=== PATIENT | female | born 1950 | race Caucasian/White ===

== ENCOUNTER 2022-09-20 13:20 | Outpatient (RCR) | payer MEDICARE, SELFPAY ==
[2022-09-20 13:21] VITALS: BMI 24.5
[2022-09-20 14:31] VITALS: BMI 24.5
== END 2022-12-08 08:33 | disposition home or self-care (01) ==
LOC: ANHDMC 13:20
PROVIDERS: PCP Family Medicine; Visit Provider Family Medicine
DX: E11.9 Type 2 diabetes mellitus without complications (principal); Z71.3 Dietary counseling and surveillance
CPT/HCPCS: 97802

== ENCOUNTER 2023-06-07 16:24 | Emergency (ER) | payer MEDICARE, SELFPAY ==
[2023-06-07 16:28] VITALS: BP 144/76; PULSE 83; RESP 16; TEMP 36.1; O2SAT 98
--- NOTE | 2023-06-07 16:34 | ED.FEMALEGU ---
HPI - Female Genitourinary General Chief complaint: Urogenital-Female Stated complaint: Female Urogenital Source: patient and RN notes reviewed History of Present Illness HPI Narrative: 72 yo F presents to urgent care with complaints of dysuria and hematuria x 2-3 days. Pt reports feeling nauseated the other day. Denies any abdominal pain, vomiting, flank pain, abnormal back pain, fevers, chills, chest pain, or SOB. Related Data Home Medications Medication Instructions Recorded Confirmed melatonin 5 mg capsule 5 mg PO .hs 09/21/21 06/07/23 [id number]-[id number] 8 mg-folic 400 1 tablet PO DAILY 09/21/21 06/07/23 mcg-K 50 mcg-lutein 300 mcg tablet (Centrum Silver Women) Allergies Allergy/AdvReac Type Severity Reaction Status Date / Time QUINTON Inhibitors Allergy Severe Angioedema Verified 05/02/23 13:36 Review of Systems Review of Systems: CONSTITUTIONAL: Denies fever, chills, or sweats. EYES: Denies visual changes, redness, or discharge. ENT: Denies otalgia and sore throat CARDIOVASCULAR: Denies chest pain, palpitations, or edema. RESPIRATORY: Denies cough or dyspnea. GASTROINTESTINAL: Denies abdominal pain, vomiting, or diarrhea. SKIN: Denies rash or itching. MUSCULOSKELETAL: Denies back pain, joint pain, or myalgia. NEUROLOGIC: Denies headache, numbness, or weakness. Pertinent positives per HPI. [facility] Past Medical History Medical History BMI 24.0-24.9, adult Breast cancer Cataract Thyroid disease Surgical History Surgical History H/O breast surgery Family History Family History Father Family history of cardiovascular disease, Onset Age: 87 Mother Family history of cardiovascular disease, Onset Age: 93 Sibling No problems noted. Social History Social History Smoking packs per day: 1 Smoking cigarettes per day: 20.0 Smoking status: Current every day smoker Tobacco type: cigarettes Second hand tobacco smoke exposure: No Alcohol intake: never Substance use: never Substance use type: does not use Lack of Transportation: YES Lack of Food: Never True Current Housing: I Have Housing Concerned About Future Housing: No Difficulty Paying Gas/Electric Bills: No Difficulty Paying for Meds: No Currently Unemployed: No Education: High School Diploma/GED Difficulty w/ Childcare or Family Care: No Living arrangements: with family Occupation/Education: retired Additional occupation/education comments: [employer] Gender identity (if verbalized by the patient): Female Sexual Orientation (if Verbalized by the Patient): Straight or Heterosexual Spiritual care concerns: No Agree to blood products: Yes Comments At the time of my signature, I reviewed and agree with the nursing past medical, surgical, social, and family history. There is no relevant family history pertinent to the patient complaint. Exam Narrative: GENERAL: This is a well-nourished, well-developed patient, in no apparent distress. HEAD: normocephalic, atraumatic. EYES: Sclera clear/white. Vision is grossly intact. EARS: External ears normal, auditory canals clear and without drainage. Hearing grossly intact. NOSE: External nose normal with no obvious nasal discharge, nares without redness, no rhinorrhea. NECK: Neck supple, non-tender without lymphadenopathy, masses or thyromegaly. CARDIOVASCULAR: Regular rate and rhythm without murmurs, gallops, or rubs. RESPIRATORY: Clear to auscultation. Breath sounds equal bilaterally. No wheezes, rales, or rhonchi. GASTROINTESTINAL: Abdomen soft, non-tender, nondistended. Bowel sounds are active. No hepato-splenomegaly, or palpable masses. No guarding. SKIN: warm, intact with no suspicious lesions or rash, go
== END 2023-06-07 17:45 | disposition home or self-care (01) ==
PROVIDERS: Emergency Provider Nurse Practitioner Family; PCP Family Medicine
DX: N39.0 Urinary tract infection, site not specified (principal); F17.210 Nicotine dependence, cigarettes, uncomplicated
CPT/HCPCS: 81003; 87077; 87086; 87186; 99213; G0463

== ENCOUNTER 2023-06-19 17:28 | Emergency (ER) | payer MEDICARE, SELFPAY ==
[2023-06-19 17:32] VITALS: BP 146/68; PULSE 98; RESP 16; TEMP 36.6; O2SAT 97
--- NOTE | 2023-06-19 18:04 | ED.FEMALEGU ---
HPI - Female Genitourinary General Chief complaint: Urogenital-Female Stated complaint: Female Urogenital Time Seen by Provider: 06/19/23 17:52 Source: patient, RN notes reviewed and old records reviewed (previous urine culture) Mode of arrival: ambulatory Limitations: no limitations History of Present Illness HPI Narrative: Patient presents today complaining of urgency, dysuria, and mild urinary retention. Denies hematuria, back pain, abdominal pain. Patient was seen at [facility] on 06/07/23, diagnosed with the UTI, and placed on 5 days of Macrobid. States she finished this, but her symptoms only resolved for a few days before returning. Related Data Home Medications Medication Instructions Recorded Confirmed melatonin 5 mg capsule 5 mg PO .hs 09/21/21 06/19/23 [id number]-[id number] 8 mg-folic 400 1 tablet PO DAILY 09/21/21 06/19/23 mcg-K 50 mcg-lutein 300 mcg tablet (Centrum Silver Women) epinephrine 0.3 mg/0.3 mL 0.3 mg IM PRN PRN Allergic Reaction 06/19/23 06/19/23 injection, auto-injector Allergies Allergy/AdvReac Type Severity Reaction Status Date / Time QUINTON Inhibitors Allergy Severe Angioedema Verified 06/19/23 17:37 Review of Systems Review of Systems: CONSTITUTIONAL: Denies body aches, fever, chills, or sweats. EYES: Denies visual changes, redness, or discharge. ENT: Denies rhinorrhea, congestion, sore throat, or otalgia. CARDIOVASCULAR: Denies chest pain, palpitations, or edema. RESPIRATORY: Denies cough or dyspnea. GASTROINTESTINAL: Denies abdominal pain, nausea, vomiting, or diarrhea. GENITOURINARY: + urgency, dysuria, urinary retention. Denies hematuria SKIN: Denies rash, itching, or wounds. MUSCULOSKELETAL: Denies back pain, joint pain, or myalgia. NEUROLOGIC: Denies headache, numbness, tingling, or weakness. PSYCH: Denies depression or anxiety. PENDING SALE TO [facility] Past Medical History Medical History BMI 24.0-24.9, adult Breast cancer Cataract Thyroid disease Surgical History Surgical History H/O breast surgery Family History Family History Father Family history of cardiovascular disease, Onset Age: 87 Mother Family history of cardiovascular disease, Onset Age: 93 Sibling No problems noted. Social History Social History Smoking packs per day: 1 Smoking cigarettes per day: 20.0 Smoking status: Current every day smoker Tobacco type: cigarettes Second hand tobacco smoke exposure: No Alcohol intake: never Substance use: never Substance use type: does not use Lack of Transportation: YES Lack of Food: Never True Current Housing: I Have Housing Concerned About Future Housing: No Difficulty Paying Gas/Electric Bills: No Difficulty Paying for Meds: No Currently Unemployed: No Education: High School Diploma/GED Difficulty w/ Childcare or Family Care: No Living arrangements: with family Occupation/Education: retired Additional occupation/education comments: [employer] Gender identity (if verbalized by the patient): Female Sexual Orientation (if Verbalized by the Patient): Straight or Heterosexual Spiritual care concerns: No Agree to blood products: Yes Comments At time of signature, I have reviewed and agree with nursing past medical, surgical, social and family history unless otherwise noted. Please see nursing chart for further information. There is no relevant family history pertinent to the presenting complaint Exam Narrative: GENERAL: Well-appearing, well-nourished, and in no acute distress. HEAD: Normocephalic, atraumatic. EYES: EOMI. No redness or drainage. Conjunctivae normal. ENT: Mucous membranes pink and moist. NECK: Normal AROM. CHEST: No respiratory dist
== END 2023-06-19 18:12 | disposition home or self-care (01) ==
PROVIDERS: Emergency Provider Nurse Practitioner; PCP Family Medicine
DX: N39.0 Urinary tract infection, site not specified (principal); F17.210 Nicotine dependence, cigarettes, uncomplicated; Z79.899 Other long term (current) drug therapy; Z85.3 Personal history of malignant neoplasm of breast
CPT/HCPCS: 81003; 99213; G0463

== ENCOUNTER 2024-04-06 08:49 | Outpatient (CLI) | payer MEDICARE, SELFPAY ==
--- NOTE | ~2024-04-06 | XR_ITS ---
EXAMINATION: XR lumbar spine 2-3V DATE: 04/06/2024 09:06 INDICATION: Dorsalgia TECHNIQUE: Anteroposterior and lateral views of the lumbar spine, and cone-down lateral view of the l umbosacral junction were obtained. COMPARISON: None. FINDINGS: 18 degree upper lumbar dextroscoliosis. There is a few millimeters left lateral listhesis of L4 with respect to both L3 and L5. Sagittal alignment is normal. Vertebral body heights are normal. Severe le ft-sided predominant disc height loss at L2-L3. Moderate disc height loss at L3-L4 and mild disc heig ht loss at L4-L5 and L5-S1. Sacral arches are intact. Mild osteoarthritis at the bilateral hip and sa croiliac joints. 2.7 cm partially calcified mass in the right abdomen. IMPRESSION: 1. 18 degree lumbar dextroscoliosis with moderate to severe spondylosis. 2. Indeterminate 2.7 cm partially calcified mass in the right abdomen. Consider CT for further evalua tion. Reviewed, dictated and finalized at location A. IMPRESSION: 1. 18 degree lumbar dextroscoliosis with moderate to severe spondylosis. 2. Indeterminate 2.7 cm partially calcified mass in the right abdomen. Consider CT for further evaluation.
== END 2024-04-06 08:50 | disposition home or self-care (01) ==
LOC: MICIMG 08:50
PROVIDERS: PCP Family Medicine
DX: M41.86 Other forms of scoliosis, lumbar region (principal); M47.816 Spondylosis without myelopathy or radiculopathy, lumbar region; R19.00 Intra-abdominal and pelvic swelling, mass and lump, unspecified site; M54.9 Dorsalgia, unspecified
CPT/HCPCS: 72100

== ENCOUNTER 2024-12-03 08:37 | Outpatient (CLI) | payer MEDICARE, SELFPAY ==
--- OUTSIDE RECORDS SUMMARY | 2024-12-03 08:43 | XMS_ITS | Clinical Summary ---
Author Organization [facility] Address [address] [place] [address] Care Team Providers Care Weight Loss Physician Name Role Phone Kenneth Boss MD Primary Care Provider Source Comments [facility],non-owned Affiliates and Associated Physician Practices is amultiple site organization consisting of ambulatory clinics and hospital sitesin [place], [place], [place] and [place]. This disclosure is being madepursuant to the Care Everywhere program and may not contain all information available regarding this patient. 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 Gender Identity Not on file Sexual Orientation Not on file Plan of Treatment Health Maintenance Due Date Last Done Comments BONE DENSITY TESTING 1950 COLOGUARD (AGES 45-75) - COL ON CA SCREENING 1949 COLON MONITORING 1949 COLONOSCOPY - COLON CA SCREENING 1949 CT COLONOGRAPHY - COLON CA SCREENING 1950 Colorectal Cancer Screening 1949 FIT - COLON CA SCREENING 1949 FLEX SIG - COLON CA SCREENING 1949 LIPID TESTING 1949 MAMMOGRAM 1949 HEPATITIS C SCREENING 08/20/1967 DTAP/TDAP/TD VACCINES (1 - Tdap) 1968 PNEUMOCOCCAL VACCINE 50+ (1 of 1 - PCV) 1999 ZOSTER VACCINE (1 of 2) 1999 COVID-19 VACCINE ( - 2023-2 5 season) 2024 DEPRESSION SCREENING 07/24/2024 Respiratory Syncytial Virus (RSV) Vaccine Pt: or over 60 yrs (1 - 1-dose 75+ series) 2024 INFLUENZA VACCINE (Season Ended) 2025 HEPATITIS B VACCINE Aged Out No longe r eligible based on patient's age to complete this topic HIB VACCINE Aged Out No longer eligi ble based on patient's age to complete this topic HPV VACCINE Aged Out No longer eligi ble based on patient's age to complete this topic MENINGOCOCCAL (Group B) VACC INE SHARED DECISION-MAKING Aged Out No longer eligibl e based on patient's age to complete this topic MENINGOCOCCAL GROUPS A/C/Y/W VACCINE Aged Out No longer eligible b ased on patient's age to complete this topic Care Teams Weight Loss Physician Relationship Specialty Start Date End Date Kenneth Boss MD [address] [place] [address] PCP - General 12/24/08
--- OUTSIDE RECORDS SUMMARY | 2024-12-03 08:43 | XMS_ITS | Continuity of Care Document ---
Author Organization [facility] [place] Address [address] [place] [address] [place] [address] Phone Care Team Providers Care Pharmacy Informatics Specialist Name Role Phone [facility] Unavailable Unavail able Renea Issa Unavailable Unavailable Advance Directives Directive Yes / No Effective Date File Name No Information Encounters Encounter Description Practice Location Reason(s) For Visit Diagnoses Date Provider Providers Copied on Encounter [facility], [address], [place], [place], [id number], [place] tel:[phone] [facility] No Information Sep-0 5-200 3 [facility] [address] [facility], [address], [place], [place], [id number] , [place]. tel:[phone] Consulting Provider: Renea Issa, [address] [place] [address], [address]. tel:[phone] Family History Family Member Type Diagnosis Age At Onset No Information Payers Payer name Insurance type Covered constitution party ID Authoriza tion(s) No Information Social History [...]
--- NOTE | 2024-12-03 11:15 | NEURO_ITS ---
Impression: # Complains of balance problem. 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 # Needle/EMG exam neurogenic changes though no fibrillations. # Possibility of superimposed higher level involvement cannot be ruled out. Nerve Conduction Studies Anti Sensory Summary Table Stim Site NR Peak (ms) P-T Amp (µV) Site1 Site2 Delta-P (ms) Dist (cm) Gio (m/s) Left Sup Fibular Anti Sensory (Ant Lat Mall) 14 cm 4.1 7.2 14 cm Ant Lat Mall 4.1 16.0 39 Right Sup Fibular Anti Sensory (Ant Lat Mall) NO RESPONSE 14 cm NR 14 cm Ant Lat Mall 16.0 Left Sural Anti Sensory (Lat Mall) Calf 3.8 21.5 Calf Lat Mall 3.8 16.0 42 Right Sural Anti Sensory (Lat Mall) Calf 4.3 18.4 Calf Lat Mall 4.3 16.0 37 Motor Summary Table Stim Site NR Onset (ms) O-P Amp (mV) Site1 Site2 Delta-0 (ms) Dist (cm) Gio (m/s) Left Peroneal Motor (Vastus Med) NO RESPONSE Ankle NR Popit Ankle 0.0 Popit NR Right Peroneal Motor (Vastus Med) Ankle 5.7 0.3 Popit Ankle 10.8 42.0 39 Popit 16.5 0.4 Left Tibial Motor (Abd Bridges Brev) Ankle 5.3 1.8 Knee Ankle 12.5 43.0 34 Knee 17.8 1.0 Right Tibial Motor (Abd Bridges Brev) Ankle 5.2 3.7 Knee Ankle 11.7 43.0 37 Knee 16.9 1.0 F Wave Studies NR F-Lat (ms) L-R F-Lat (ms) Left Peroneal (Mrkrs) (EDB) NO RESPONSE NR Right Peroneal (Mrkrs) (EDB) DISPERSED RESPONSE NR Left Tibial (Mrkrs) (Abd Hallucis) 59.15 0.23 Right Tibial (Mrkrs) (Abd Hallucis) 58.92 0.23 EMG Side Muscle Nerve Root Ins Act Fibs Amp Dur Recrt Comment Right AntTibialis Dp Br Fibular L4-5 Nml Nml Nml Nml +1 Right Gastroc Tibial S1-2 Nml Nml Nml Nml +1 Right Fibularis Long Sup Br Fibular L5-S1 Nml Nml Nml Nml +1 Right Flex Dig Long Tibial L5-S2 Nml Nml Nml Nml +1 Right Ext Dig Brev Dp Br Fibular L5, S1 Nml Nml Nml Nml +1 Right QuadratusFem QuadFemoris L4-5, S1 Nml Nml Nml Nml +1 Left AntTibialis Dp Br Fibular L4-5 Nml Nml Nml Nml +1 Left Gastroc Tibial S1-2 Nml Nml Nml Nml +1 Left Fibularis Long Sup Br Fibular L5-S1 Nml Nml Nml Nml +1 Left Flex Dig Long Tibial L5-S2 Nml Nml Nml Nml +1 Left Ext Dig Brev Dp Br Fibular L5, S1 Nml Nml Nml Nml +1 Left QuadratusFem QuadFemoris L4-5, S1 Nml Nml Nml Nml +1 MTDD
== END 2024-12-03 08:38 | disposition home or self-care (01) ==
PROVIDERS: PCP Family Medicine; Visit Provider Family Medicine
DX: G57.32 Lesion of lateral popliteal nerve, left lower limb (principal); M47.16 Other spondylosis with myelopathy, lumbar region
CPT/HCPCS: 95886; 95910

== ENCOUNTER 2025-05-12 20:09 | Emergency (ER) | payer MEDICARE, SELFPAY ==
--- NOTE | ~2025-05-12 | CT_ITS ---
CT brain wo con HISTORY:syncope COMPARISON: None. TECHNIQUE: Axial images were obtained of the head without intravenous contrast. FINDINGS: No acute intracranial hemorrhage, mass effect or midline shift. No extra-axial fluid collections. There is generalized atrophy and chronic white matter microangiopathic changes in the periventricular white matter. There is a chronic lacunar infarct in the left basal ganglia.Visualized paranasal sinuses and mastoid air cells are clear. IMPRESSION: No acute intracranial hemorrhage or extra axial fluid collections. Generalized atrophy and chronic white matter microangiopathic changes. Chronic lacunar infarct in the left basal ganglia. All CT scans at this facility are performed using low dose modulation techniques as appropriate to perform exam including the following: automated exposure control; use of iterative reconstruction technique; adjustment of the mA and/or kV according to patient size (this includes techniques or standardized protocols for targeted exams where dose is matched to indication/reason for exam). Reviewed, dictated and finalized at location S. IMPRESSION: No acute intracranial hemorrhage or extra axial fluid collections. Generalized atrophy and chronic white matter microangiopathic changes. Chronic lacunar infarct in the left basal ganglia. All CT scans at this facility are performed using low dose modulation techniqu es as appropriate to perform exam including the following: automated exposure c ontrol; use of iterative reconstruction technique; adjustment of the mA and/or kV according to patient size (this includes techniques or standardized protocol s for targeted exams where dose is matched to indication/reason for exam).
[2025-05-12 20:12] VITALS: BP 162/98; PULSE 100; RESP 12; TEMP 36.6; O2SAT 95; O2SAT 96
--- NOTE | 2025-05-12 21:21 | ED_ITS ---
HPI - Altered Mental Status General Chief Complaint: Altered Mental Status Stated Complaint: AMS, LOSS OF VISION/HEARING; NOW RESOLVED Time Seen by Provider: 05/12/25 20:47 History of Present Illness HPI narrative: 74-year-old female with a past medical history including hypothyroidism, hypertension, axilla neuropathy, smoking. Patient presents to the emergency department via EMS after a witnessed syncopal event. Per patient who is currently awake alert oriented at her baseline mentation she states she was having ?and intense shopping trip ?at [employer] and did not eat anything all day. She is currently awake and has no complaints and states she feels fine and back to her normal self. No visualize shaking activity per EMS. Patient had prodromal symptoms were she felt like she was losing hearing and vision and then felt lightheaded and passed out. Did not hit her head. No chest pain or shortness a breath preceding it. No symptomatology at this time. Denies any headache, vision change, nausea, vomiting, headache, vision changes, hearing changes, abdominal pain, back pain. No weakness or peripheral neuropathy worse than her baseline neuropathy. No history of stroke. No blood thinner use. Related Data Home Medications ?Medication ?Instructions ?Recorded ?Confirmed ?Last Taken ?Type epinephrine 0.3 mg/0.3 mL 0.3 mg IM PRN PRN Allergic R eaction 06/19/23 01/13/25 Unknown History injection, auto-injector Allergies Allergy/AdvReac Type Severity Reaction Status Date / Time QUINTON Inhibitors Allergy Severe Angioedema Verified 01/13/25 08:08 Review of Systems 2 Review of Systems: As reviewed above in HPI [facility] Past Medical History Medical History BMI 24.0-24.9, adult Cataract Breast cancer Thyroid disease Surgical History Surgical History H/O breast surgery Family History Family History Father Family history of cardiovascular disease, Onset Age: 87 Mother Family history of cardiovascular disease, Onset Age: 93 Sibling No problems noted. Social History Social History Smoking packs per day: 1 Smoking cigarettes per day: 20.0 Smoking status: Current every day smoker Tobacco type: cigarettes Second hand tobacco smoke exposure: No Alcohol intake: never Substance use: never Substance use type: does not use Do You Feel Safe in your Home?: Yes Lack of Transportation: YES Lack of Food: Never True Current Housing: I Have Housing Concerned About Future Housing: No Difficulty Paying Gas/Electric Bills: No Difficulty Paying for Meds: No Currently Unemployed: No Education: High School Diploma/GED Difficulty w/ Childcare or Family Care: No Living arrangements: with family Occupation/Education: retired Additional occupation/education comments: [employer] Gender identity (if verbalized by the patient): Female Sexual Orientation (if Verbalized by the Patient): Straight or Heterosexual Spiritual care concerns: No Agree to blood products: Yes Exam 2 Narrative: GENERAL: [Well-appearing, well-nourished, and in no acute distress.] HEAD: [Normocephalic, atraumatic.] EYES: [PERRLA and EOMI.] ENT: Nares clear, no rhinorrhea or epistaxis. Mucous membranes moist. NECK: Supple. CHEST: [Clear to auscultation. No respiratory distress.] HEART: [Regular rate and rhythm]. No murmur heard. [Normal peripheral pulses.] ABDOMEN: [Soft, nondistended], [nontender], [No rigidity or guarding] EXTREMITIES: Normal range of motion. [No edema.] SKIN: Warm, dry, no rash. NEURO: [No focal deficits]. Alert and oriented [x3.]. Full strength and sensation throughout both arms and legs. No paresthesias or facial droop or asymmetry. NIH is 0. PSYCH: [Normal mood and affect.] Course Vital Signs Vital signs: Vital Signs Temperature 36.6 C 05/12/25 20:12 Pulse Rate 100 05/12/25 20:12 Respiratory Rate 12 05/12/25 20:12 Blood Pressure 162/98 H 05/12/25 20:12 Pulse Oximetry 95 05/12/25 20:12 Oxygen Delivery Room Air 05/12/25 20:12 Temperature 36.6 C 05/12/25 20:12 Pulse Rate 100 05/12/25 20:12 Respiratory Rate 12 05/12/25 20:12 Blood Pressure 162/98 H 05/12/25 20:12 Pulse Oximetry 96 05/12/25 20:12 Oxygen Delivery Room Air 05/12/25 20:12 MDM - Altered Mental Status MDM Narrative Medical decision making narrative: 74-year-old female with a past medical history including hypothyroidism, hypertension, axilla neuropathy, smoking. Patient presents to the emergency department via EMS after a witnessed syncopal event. Per patient who is currently awake alert oriented at her baseline mentation she states she was having ?and intense shopping trip ?at [employer] and did not eat anything all day. She is currently awake and has no complaints and states she feels fine and back to her normal self. No visualize shaking activity per EMS. Patient had prodromal symptoms were she felt like she was losing hearing and vision and then felt lightheaded and passed out. Did not hit her head. No chest pain or shortness a breath preceding it. No symptomatology at this time. Denies any headache, vision change, nausea, vomiting, headache, vision changes, hearing changes, abdominal pain, back pain. No weakness or peripheral neuropathy worse than her baseline neuropathy. No history of stroke. No blood thinner use. Patient is hemodynamically stable without any tachycardia, fever, hypoxemia or profound hypotension or hypertension. NIH is 0. Awake alert oriented x4. No significant red flags aside from her elevated risk factors including hypothyroidism hypertension and smoking. No neurological complaints or deficits. Likely combination of exertion and lack of any oral intake her eating today as patient states she has not had anything to eat and is currently thirsty and hungry. Point care glucose normal. Workup ordered at this time with EKG, chest x-ray, CT of the head, electrolyte panel and additional labs. TSH ordered. Placed on brick pitcher and given a fluid bolus. Patient's TSH is elevated but chronic with normal reflux levels. Troponin is within normal limits x2. CT of the head shows no acute intracranial process but there is generalized atrophy and chronic left-sided basal ganglia stroke prior. Patient ambulatory with a steady gait remains neurologically intact. Playing on her phone during [employer] counter is with no further complaints. Patient states she feels fine without any issues at this time. Her workup shows a minor MILO as well as a sign of bacteria and potential urinary tract infection. She was given a dose of Rocephin for this. Patient denies any urinary complaints such as fever, back pain, dysuria, foul odor or urgency. Will treat this regardless given her MILO and history. Patient is hydrated here and tolerating oral intake. Going up to the bathroom by herself and walking with a steady gait. I did talk to the patient for admission to the hospital at this time, but she politely declined and states she wishes to go home as she states she feels fine. I discussed this with her including risks and benefits of staying in the hospital for continued treatment/observation regarding her syncope rather than going home, but she would prefer to take antibiotics for the UTI and go home. Patient states she will call family members to come pick her up. Prescription sent for Keflex and given strict return precautions and PCP follow-up instructions and she was discharged home at this time. Medical Records Attestation: I reviewed the patient's medical records. Lab Data Attestation: I reviewed the patient's lab results. 05/12/25 21:22 05/12/25 21:22 Labs: Lab Results 05/12/25 05/12/25 05/12/25 Range/Units 21:22 21:22 22:49 WBC 8.9 (4.5-10.0) K/mm3 RBC 4.45 (4.2-5.4) M/mm3 Hgb 13.9 (12.0-15.0) g/dL Hct 41.1 (37.0-47.0) % MCV 92.4 (80-100) fl MCH 31.2 (26-34) pg MCHC 33.8 (32-36) g/dl RDW 14.5 (11.5-14.5) % Plt Count 224 (150-375) k/mm3 MPV 11.0 H (7.4-10.4) fl Immature Gran % (Auto) 0.5 (0-0.5) % Neut % (Auto) 74.8 H (45.5-73.1) % Lymph % (Auto) 18.6 (18.3-44.2) % Steele % (Auto) 4.5 (2.6-8.5) % Eos % (Auto) 1.0 (0-4.4) % Baso % (Auto) 0.6 (0.2-1.2) % Lymph # (Auto) 1.65 (0.9-3.2) K/mm3 Steele # (Auto) 0.4 (0.1-0.6) K/mm3 Eos # (Auto) 0.1 (0-0.3) K/mm3 Baso # (Auto) 0.1 (0.0-0.1) K/mm3 Abs Immat Gran (auto) 0.04 H (0.00-0.031) K/mm3 Absolute Neuts (auto) 6.6 (1.3-6.7) K/mm3 Absolute Nucleated RBC 0.000 (0.0-0.012) K/mm3 Nucleated RBC % 0.0 (0.0-0.2) % PT 13.9 (11.1-14.7) Seconds INR 1.1 APTT 22.9 (22.3-36.8) Seconds Sodium 136 L (137-145) mmol/L Potassium 3.3 L (3.4-5.0) mmol/L Chloride 102 (98-107) mmol/L Carbon Dioxide 26 (22-30) mmol/L Anion Gap 8 (4-12) mmol/L BUN 25 H (7-17) mg/dL Creatinine 1.66 H (0.7-1.0) mg/dL Estim Creat Clear Calc 24 ml/min Estimated GFR 30 L (59 - ) Glucose 158 H (65-110) mg/dL Calcium 10.2 (8.4-10.2) mg/dL Magnesium 1.8 Cancelled (1.6-2.3) mg/dL Total Bilirubin 0.6 (0.2-1.3) mg/dL AST 23 (14-36) U/L ALT 12 (6-35) U/L Alkaline Phosphatase 58 (38-126) U/L Troponin I 0.020 (0.000-0.034) ng/mL Total Protein 7.6 (6.3-8.2) g/dL Albumin 4.3 (3.5-5.1) g/dL TSH (Reflex) 14.900 H (0.465-4.68) uIU/mL Free T4 1.23 (0.78-2.19) ng/dL Total T3 0.95 (0.82-1.58) NG/ML Urine Color Yellow (Yellow) Urine Appearance Cloudy H (Clear) Urine pH 5.5 (5.0-9.0) Ur Specific [place] 1.014 (1.001-1.035) Urine Protein 2+ H (Negative) mg/dL Urine Glucose (UA) Negative (Negative) mg/dL Urine Ketones Trace H (Negative) mg/dL Ur Blood (Man) Negative (Negative) Urine Nitrate Negative (Negative) Urine Bilirubin Negative (Negative) Urine Urobilinogen 1.0 (<2.0) mg/dL Add Ur Microanalysis Reviewed Leukocyte Esterase Rfl 2+ H (Negative) ESTEPHANIA/UL Urine RBC 0-2 (0-2) /hpf Urine WBC 51-100 H (0-3) /hpf Ur Squamous Epith Cells Moderate (Few) /hpf Urine Bacteria 4+ H /hpf Urine Casts 6-10 05/13/25 Range/Units 00:12 WBC (4.5-10.0) K/mm3 RBC (4.2-5.4) M/mm3 Hgb (12.0-15.0) g/dL Hct (37.0-47.0) % MCV (80-100) fl MCH (26-34) pg MCHC (32-36) g/dl RDW (11.5-14.5) % Plt Count (150-375) k/mm3 MPV (7.4-10.4) fl Immature Gran % (Auto) (0-0.5) % Neut % (Auto) (45.5-73.1) % Lymph % (Auto) (18.3-44.2) % Steele % (Auto) (2.6-8.5) % Eos % (Auto) (0-4.4) % Baso % (Auto) (0.2-1.2) % Lymph # (Auto) (0.9-3.2) K/mm3 Steele # (Auto) (0.1-0.6) K/mm3 Eos # (Auto) (0-0.3) K/mm3 Baso # (Auto) (0.0-0.1) K/mm3 Abs Immat Gran (auto) (0.00-0.031) K/mm3 Absolute Neuts (auto) (1.3-6.7) K/mm3 Absolute Nucleated RBC (0.0-0.012) K/mm3 Nucleated RBC % (0.0-0.2) % PT (11.1-14.7) Seconds INR APTT (22.3-36.8) Seconds Sodium (137-145) mmol/L Potassium (3.4-5.0) mmol/L Chloride (98-107) mmol/L Carbon Dioxide (22-30) mmol/L Anion Gap (4-12) mmol/L BUN (7-17) mg/dL Creatinine (0.7-1.0) mg/dL Estim Creat Clear Calc ml/min Estimated GFR (59 - ) Glucose (65-110) mg/dL Calcium (8.4-10.2) mg/dL Magnesium (1.6-2.3) mg/dL Total Bilirubin (0.2-1.3) mg/dL AST (14-36) U/L ALT (6-35) U/L Alkaline Phosphatase (38-126) U/L Troponin I 0.024 (0.000-0.034) ng/mL Total Protein (6.3-8.2) g/dL Albumin (3.5-5.1) g/dL TSH (Reflex) (0.465-4.68) uIU/mL Free T4 (0.78-2.19) ng/dL Total T3 (0.82-1.58) NG/ML Urine Color (Yellow) Urine Appearance (Clear) Urine pH (5.0-9.0) Ur Specific [place] (1.001-1.035) Urine Protein (Negative) mg/dL Urine Glucose (UA) (Negative) mg/dL Urine Ketones (Negative) mg/dL Ur Blood (Man) (Negative) Urine Nitrate (Negative) Urine Bilirubin (Negative) Urine Urobilinogen (<2.0) mg/dL Add Ur Microanalysis Leukocyte Esterase Rfl (Negative) ESTEPHANIA/UL Urine RBC (0-2) /hpf Urine WBC (0-3) /hpf Ur Squamous Epith Cells (Few) /hpf Urine Bacteria /hpf Urine Casts Imaging Data My impression: Impressions Head CT 05/12/25 21:36 IMPRESSION: No acute intracranial hemorrhage or extra axial fluid collections. Generalized atrophy and chronic white matter microangiopathic changes. Chronic lacunar infarct in the left basal ganglia. All CT scans at this facility are performed using low dose modulation techniques as appropriate to perform exam including the following: automated exposure control; use of iterative reconstruction technique; adjustment of the mA and/or kV according to patient size (this includes techniques or standardized protocols for targeted exams where dose is matched to indication/reason for exam). Discharge Plan Discharge Clinical Impression: Syncope, Urinary tract infection, Acute dehydration Patient Disposition: Home Condition: Stable Instructions: Antibiotic Form, Urinary Tract Infection in Women (DC), Syncope (DC) Additional Instructions: Your CT scan shows no acute abnormality. Your laboratory studies show dehydration and a urinary infection. We have given you fluid hydration and antibiotics and offered admission to the hospital for further evaluation and treatment but you would prefer to go home at this time. Please follow-up with your primary care provider in the next several days or return if you have any recurrent symptoms, new symptoms, emergencies. Take the prescribed antibiotics until completion. Maintain good oral hydration and follow-up with your doctors. Patient Language: French Prescriptions: New cephalexin 500 mg capsule 500 mg PO Q12H 7 Days Qty: 14 0RF No Action epinephrine 0.3 mg/0.3 mL auto-injector 0.3 mg IM PRN PRN (Reason: Allergic Reaction) Rx Instructions: as a single dose; may repeat once cholecalciferol (vitamin D3) 125 mcg (5,000 unit) capsule 125 mcg PO DAILY Qty: 90 3RF mirabegron [Myrbetriq] 25 mg tablet extended release 24 hr 25 mg PO DAILY Qty: 90 1RF gabapentin 300 mg capsule 300 mg PO QHS Qty: 90 1RF losartan-hydrochlorothiazide 50-12.5 mg tablet 1 tablet PO DAILY Qty: 90 1RF levothyroxine [Levoxyl] 150 mcg tablet 150 mcg PO DAILY Qty: 90 1RF Centrum Silver Women 8 mg iron-400 mcg-50 mcg tablet 1 tablet PO DAILY Qty: 90 0RF Follow-up/Referrals: Shahriar Daigle MD [Primary Care Provider, [facility]] Time of Disposition: 01:33
[2025-05-12 21:28] LABS: Hematocrit 41.1 % (37.0-47.0); Hemoglobin 13.9 g/dL (12.0-15.0); Immature Granulocyte Percent A 0.5 % (0-0.5); Lymphocytes Absolute Auto 1.65 K/mm3 (0.9-3.2); Mean Corpuscular HGB Conc 33.8 g/dl (32-36); Mean Corpuscular Hemoglobin 31.2 pg (26-34); Mean Corpuscular Volume 92.4 fl (80-100); Nucleated Red Blood Cells Absolute Auto 0.000 K/mm3 (0.0-0.012); Nucleated Red Blood Cells Perc 0.0 % (0.0-0.2); Platelet Count Result 224 k/mm3 (150-375); Red Blood Count 4.45 M/mm3 (4.2-5.4); White Blood Count 8.9 K/mm3 (4.5-10.0)
[2025-05-12 21:39] LABS: INR 1.1; Partial Thromboplastin Time 22.9 Seconds (22.3-36.8); Prothrombin Time 13.9 Seconds (11.1-14.7)
[2025-05-12 21:43] LABS: Alanine Aminotransferase 12 U/L (6-35); Albumin Level 4.3 g/dL (3.5-5.1); Alkaline Phosphatase 58 U/L (38-126); Anion Gap 8 mmol/L (4-12); Aspartate Amino Transferase 23 U/L (14-36); Bilirubin,Total 0.6 mg/dL (0.2-1.3); Blood Urea Nitrogen 25 mg/dL (7-17); Calcium 10.2 mg/dL (8.4-10.2); Carbon Dioxide 26 mmol/L (22-30); Chloride 102 mmol/L (98-107); Estimated CRCL calculation 24 ml/min; Estimated Glomerular Filt Rate 30; Glucose 158 mg/dL (65-110); Potassium 3.3 mmol/L (3.4-5.0); Sodium 136 mmol/L (137-145); Total Protein 7.6 g/dL (6.3-8.2)
[2025-05-12 21:53] LABS: Troponin I 0.020 ng/mL (0.000-0.034)
--- NOTE | 2025-05-12 22:03 | ECG_ITS ---
Test Date: 2025-05-12 23:10:14 Measurements Intervals [place] Rate: 63 P: 46 MA: 183 QRS: -23 QRSD: 85 T: 130 QT: 421 QTc: 433 Interpretive Statements SINUS RHYTHM WITH SINUS ARRHYTHMIA ANTEROSEPTAL INFARCT, AGE INDETERMINATE ST-T WAVE ABNORMALITY IN LAT/HIGH LAT LEADS- CONSIDER ISCHEMIA BASELINE ARTIFACT- I, II, AVR, AVL, V1 ABNORMAL ECG Compared to ECG 05/12/2025 22:23:14 Left anterior fascicular block no longer present Electronically Signed On 05-13-2025 06:19:57 CDT by Crow Veliz D.O.
[2025-05-12 22:17] LABS: Thyroid Stimulating Hormone Reflex 14.900 uIU/mL (0.465-4.68)
[2025-05-12] MEDS: LACTATED RINGERS 1,000 ML 999 ML IV CONT (22:33)
[2025-05-12 23:09] LABS: Free T4 Free Thyroxine Reflex 1.23 ng/dL (0.78-2.19)
--- NOTE | 2025-05-12 23:20 | ECG_ITS ---
Test Date: 2025-05-12 22:23:14 Measurements Intervals [place] Rate: 69 P: 48 [place]: 192 QRS: -56 QRSD: 90 T: 129 QT: 419 QTc: 449 Interpretive Statements SINUS RHYTHM POSSIBLE RIGHT VENTRICULAR CONDUCTION DELAY LEFT ANTERIOR FASCICULAR BLOCK ANTEROSEPTAL INFARCT, AGE INDETERMINATE ST-T WAVE ABNORMALITY IN LAT/HIGH LAT LEADS- CONSIDER ISCHEMIA BASELINE ARTIFACT- I, III, AVR, AVL, AVF ABNORMAL ECG No previous ECG available for comparison Electronically Signed On 05-13-2025 06:17:15 CDT by Crow Veliz D.O.
[2025-05-12 23:36] LABS: Add Urine Microscopic? YES; Appearance Urine Cloudy (Clear); Glucose Urine UA Negative (Negative); Leukocyte Esterase Ur 2+ LEU/UL (Negative); Need Manual Microscopic Reviewed; Nitrate Urine Negative (Negative); Specific Grav Ur 1.014 (1.001-1.035)
[2025-05-13 00:04] LABS: Magnesium 1.8 mg/dL (1.6-2.3)
--- NOTE | 2025-05-13 00:18 | ECG_ITS ---
Test Date: 2025-05-13 00:12:06 Measurements Intervals [place] Rate: 69 P: 59 [place]: 199 QRS: -60 QRSD: 93 T: 132 QT: 323 QTc: 347 Interpretive Statements SINUS RHYTHM LEFT AXIS DEVIATION CONSIDER INFERIOR INFARCT, AGE INDETERMINATE CONSIDER ANTERIOR INFARCT, AGE INDETERMINATE ST-T WAVE ABNORMALITY IN HIGH LATERAL LEADS- CONSIDER ISCHEMIA BASELINE ARTIFACT- I, II, III, AVR, AVL, AVF, V1-V6 ABNORMAL ECG Compared to ECG 05/12/2025 23:10:14 NO SIGNIFICANT CHANGE Electronically Signed On 05-13-2025 06:22:14 CDT by Crow Veliz D.O.
[2025-05-13 00:55] LABS: Troponin I 0.024 ng/mL (0.000-0.034)
[2025-05-13 01:06] LABS: Total Triiodothyronine (T3) 0.95 NG/ML (0.82-1.58)
[2025-05-13] MEDS: cefTRIAXone 1 GM in SODIUM CHLORIDE 0.9% IV 50 ML 100 ML IVPB (01:06)
== END 2025-05-13 01:47 | disposition home or self-care (01) ==
PROVIDERS: Emergency Provider Student in an Organized Health Care Education/Training Program; PCP Family Medicine
DX: R55 Syncope and collapse (principal); N39.0 Urinary tract infection, site not specified; E86.0 Dehydration; R94.31 Abnormal electrocardiogram [ECG] [EKG]; E03.9 Hypothyroidism, unspecified; I10 Essential (primary) hypertension; F17.210 Nicotine dependence, cigarettes, uncomplicated; Z85.3 Personal history of malignant neoplasm of breast
CPT/HCPCS: 36415; 70450; 80053; 81001; 83735; 84439; 84443; 84480; 84484; 85025; 85610; 85730; 93005; 96361; 96365; 99284; J0696; J7120

== ENCOUNTER 2025-05-28 13:53 | Emergency (ER) | payer MEDICARE, SELFPAY ==
--- OUTSIDE RECORDS SUMMARY | 2003-03-27 18:00 | XMS_ITS | Continuity of Care Document ---
Author Organization [facility] [place] [address] [place] [address] [place] [address] Phone Care Team Providers Care Auto Body Detailer Name Role Phone [facility] Unavailable Unavail able Renea Issa Unavailable Unavailable Advance Directives Directive Yes / No Effective Date File Name No Information Encounters Encounter Description Practice Location Reason(s) For Visit Diagnoses Date Provider Providers Copied on Encounter [facility], [address], [place], [place], [id number], [place] tel:[phone] [facility] No Information Sep-0 5-200 3 [facility] [address] [facility], [address], [place], [place], [id number] , [place]. [phone] Consulting Provider: Renea Issa, [address] [place] [address], [address]. tel:[phone] Family History Family Member Type Diagnosis Age At Onset No Information Payers Payer name Insurance type Covered republican ID Authoriza tion(s) No Information Social History Type Description Quantity Date Captured Comments Sex Female Smoking Status No Information Chief Complaint And Reason For Visit No Information Reason For Referral Reason For Referral No Information History Of Present Illness Encounter Date Complaint History Of Prese nt Illness No Information Functional Status Date Functional Assessmen t No Information Instructions Date Instruction Additional Infor mation No Information Assessments Type Assessment Date No Information Patient Care Teams Name Effective Dates (start - stop) Status Members No Information
[2025-05-28 13:51] VITALS: BP 168/94; PULSE 76; RESP 17; TEMP 36.4; O2SAT 96
--- NOTE | 2025-05-28 14:00 | ECG_ITS ---
Test Date: 2025-05-28 14:19:17 Measurements Intervals [place] Rate: 72 P: -9 OR: 157 QRS: -21 QRSD: 89 T: 92 QT: 389 QTc: 426 Interpretive Statements SINUS RHYTHM BORDERLINE LEFT AXIS DEVIATION [QRS AXIS < -20] NONSPECIFIC T-WAVE ABNORMALITY ABNORMAL ECG Electronically Signed On 05-28-2025 14:45:27 [employer]IFE [employer]TER [employer]SEM[employer]ER by Chetan Joya M.D.
--- NOTE | 2025-05-28 14:01 | ED_ITS ---
HPI - Syncope General Chief Complaint: Syncope Stated Complaint: syncope Source: patient Mode of arrival: EMS Limitations: no limitations History of Present Illness HPI narrative: This is a 74-year-old female with history of CKD, diabetes, hyperlipidemia who presents the ED for possible syncopal episode. Patient states that she was at [facility] when her legs became extremely weak slowly fell to the floor. Denies hitting her head, lost consciousness. She states that she often has to take breaks when she is out and about and she did not do that today so her legs gave out under her. She states this happened last week as well and she was seen here for this. Denies headache, change in vision, chest pain, shortness breath, palpitations abdominal pain, nausea vomiting, dysuria and hematuria. Related Data Home Medications ?Medication ?Instructions ?Recorded ?Confirmed ?Last Taken ?Type epinephrine 0.3 mg/0.3 mL 0.3 mg IM PRN PRN Allergic R eaction 06/19/23 01/13/25 Unknown History injection, auto-injector Allergies Allergy/AdvReac Type Severity Reaction Status Date / Time QUINTON Inhibitors Allergy Severe Angioedema Verified 01/13/25 08:08 Review of Systems 2 Review of Systems: Gen.: Denies fevers or chills Eyes: Denies eye pain or visual change ENT: Denies congestion Respiratory: Denies shortness of breath or cough CV: Denies chest pain or palpitations GI: Denies abdominal pain nausea, emesis or diarrhea denies burning, urgency, frequency or hematuria Musculoskeletal: Denies back pain or muscle pain Neuro: As per HPI Skin: Denies rash Except as documented, all other systems reviewed and negative [facility] Past Medical History Medical History BMI 24.0-24.9, adult Cataract Breast cancer Thyroid disease Surgical History Surgical History H/O breast surgery Family History Family History Father Family history of cardiovascular disease, Onset Age: 87 Mother Family history of cardiovascular disease, Onset Age: 93 Sibling No problems noted. Social History Social History Smoking packs per day: 1 Smoking cigarettes per day: 20.0 Tobacco type: cigarettes Second hand tobacco smoke exposure: No Alcohol intake: never Substance use: never Substance use type: does not use Do You Feel Safe in your Home?: Yes Lack of Transportation: YES Lack of Food: Never True Current Housing: I Have Housing Concerned About Future Housing: No Difficulty Paying Gas/Electric Bills: No Difficulty Paying for Meds: No Currently Unemployed: No Education: High School Diploma/GED Difficulty w/ Childcare or Family Care: No Living arrangements: with family Occupation/Education: retired Additional occupation/education comments: [employer] Gender identity (if verbalized by the patient): Female Sexual Orientation (if Verbalized by the Patient): Straight or Heterosexual Spiritual care concerns: No Agree to blood products: Yes Exam 2 Narrative: APPEARANCE: No acute distress, nontoxic, resting in bed EYES: EOMI HEENT: Normocephalic, atraumatic, OMM RESPIRATORY: No respiratory distress Clear to auscultation bilaterally with no rhonchi wheezing or rales. CARDIOVASCULAR: Regular rate and rhythm without murmurs rubs or gallops. ABDOMINAL: Soft, nontender, nondistended, no rebound or guarding MUSCULOSKELETAl: Moves all extremities. No clubbing, cyanosis or edema. NEURO: Awake and alert. Following commands, speech normal, no focal deficits. 4/5 strength to the bilateral lower extremities SKIN:: Warm, dry. No rashes lesions or abrasions PSYCHIATRIC: Normal affect/mood, Course Vital Signs Vital signs: Vital Signs Temperature 97.6 F 05/28/25 13:51 Pulse Rate 76 05/28/25 13:51 Respiratory Rate 17 05/28/25 13:51 Blood Pressure 168/94 H 05/28/25 13:51 Pulse Oximetry 96 05/28/25 13:51 Oxygen Delivery Room Air 05/28/25 13:51 Temperature 97.6 F 05/28/25 13:51 Pulse Rate 99 05/28/25 16:30 Respiratory Rate 14 05/28/25 16:30 Blood Pressure 185/94 H 05/28/25 16:30 Pulse Oximetry 99 05/28/25 16:30 Oxygen Delivery Room Air 05/28/25 13:51 MDM - Syncope MDM Narrative Medical decision making narrative: 74-year-old female Presenting for episode of syncope. On initial evaluation patient was in no acute distress afebrile, hemodynamic stable. Differentials include but are not limited to: vasovagal syncope, orthostatic hypotension, cardiogenic syncope, ICH, and electrolyte abnormality Notable exam findings: Nonfocal neuro exam heart and lungs clear. Abdomen soft and nontender. Notable lab findings: CBC and CMP without significant abnormalities. Creatinine slightly elevated but this is improved from prior. Patient seen here a week ago for almost the exact same story and had a negative workup at that time except for a slight MILO and UTI. Achy eye seems to have improved. At that time, she had also been walking for long period of time in a [employer] which was the exact same story today. I suspect that she is getting more easily fatigable. She was educated on taking frequent breaks when she is shopping. Her low concern for any intracranial abnormality at this time given nonfocal neuro exam and full workup a week ago for the same thing so advanced imaging was not indicated this time. Patient was deemed appropriate for discharge at this time. Patient was advised follow-up with their PCP in the next week for re-evaluation. Patient was agreeable to this plan. Given strict return precautions. Medical Records Attestation: I reviewed the patient's medical records. Medical records narrative: Patient presented 05/13/2025 for almost the exact same story after shopping at [employer] that day. Was found to have stable labs but noted UTI and was given a dose of Rocephin and started on outpatient antibiotics at that time. Lab Data Attestation: I reviewed the patient's lab results. 05/28/25 14:23 05/28/25 14:23 Labs: Lab Results 05/28/25 05/28/25 Range/Units 14:23 15:52 WBC 7.9 (4.5-10.0) K/mm3 RBC 4.30 (4.2-5.4) M/mm3 Hgb 13.5 (12.0-15.0) g/dL Hct 41.7 (37.0-47.0) % MCV 97.0 (80-100) fl MCH 31.4 (26-34) pg MCHC 32.4 (32-36) g/dl RDW 14.7 H (11.5-14.5) % Plt Count 206 (150-375) k/mm3 MPV 11.8 H (7.4-10.4) fl Immature Gran % (Auto) 0.4 (0-0.5) % Neut % (Auto) 64.9 (45.5-73.1) % Lymph % (Auto) 28.0 (18.3-44.2) % [place] % (Auto) 4.4 (2.6-8.5) % Eos % (Auto) 1.7 (0-4.4) % Baso % (Auto) 0.6 (0.2-1.2) % Lymph # (Auto) 2.20 (0.9-3.2) K/mm3 [place] # (Auto) 0.4 (0.1-0.6) K/mm3 Eos # (Auto) 0.1 (0-0.3) K/mm3 Baso # (Auto) 0.1 (0.0-0.1) K/mm3 Abs Immat Gran (auto) 0.03 (0.00-0.031) K/mm3 Absolute Neuts (auto) 5.1 (1.3-6.7) K/mm3 Absolute Nucleated RBC 0.000 (0.0-0.012) K/mm3 Nucleated RBC % 0.0 (0.0-0.2) % Sodium 138 (137-145) mmol/L Potassium 3.4 (3.4-5.0) mmol/L Chloride 105 (98-107) mmol/L Carbon Dioxide 23 (22-30) mmol/L Anion Gap 10 (4-12) mmol/L BUN 27 H (7-17) mg/dL Creatinine 1.47 H (0.7-1.0) mg/dL Estim Creat Clear Calc 27 ml/min Estimated GFR 35 L (59 - ) Glucose 164 H (65-110) mg/dL Calcium 10.1 (8.4-10.2) mg/dL Troponin I 0.019 (0.000-0.034) ng/mL Urine Color Yellow (Yellow) Urine Appearance Clear (Clear) Urine pH 6.5 (5.0-9.0) Ur Specific [place] 1.014 (1.001-1.035) Urine Protein 1+ H (Negative) mg/dL Urine Glucose (UA) Negative (Negative) mg/dL Urine Ketones Negative (Negative) mg/dL Ur Blood (Man) Negative (Negative) Urine Nitrate Negative (Negative) Urine Bilirubin Negative (Negative) Urine Urobilinogen 0.2 (<2.0) mg/dL Leukocyte Esterase Rfl 1+ H (Negative) [place]/UL Urine RBC 0-2 (0-2) /hpf Urine WBC 11-20 H (0-3) /hpf Ur Squamous Epith Cells Few (Few) /hpf Urine Bacteria None seen /hpf Urine Casts 3-5 ECG Data EKG #1: Attestation: I personally reviewed and interpreted this ECG as follows: ECG completion date: 05/28/25 ECG completion time: 14:19 Interpretation: Normal sinus rhythm rate of 72, borderline left axis deviation, T-wave inversions in V4 through V6, no acute ST changes Discharge Plan Discharge Clinical Impression: Transient weakness of lower extremity Patient Disposition: Home Condition: Stable Instructions: Antibiotic Form, Fall Prevention (ED) Additional Instructions: Try take more frequent breaks when you are shopping. Follow up with the PCP in the next week for re-evaluation. Return to the ED for new worsening symptoms. Patient Language: Croatian Prescriptions: No Action epinephrine 0.3 mg/0.3 mL auto-injector 0.3 mg IM PRN PRN (Reason: Allergic Reaction) Rx Instructions: as a single dose; may repeat once cholecalciferol (vitamin D3) 125 mcg (5,000 unit) capsule 125 mcg PO DAILY Qty: 90 3RF mirabegron [Myrbetriq] 25 mg tablet extended release 24 hr 25 mg PO DAILY Qty: 90 1RF cephalexin 500 mg capsule 500 mg PO Q12H 7 Days Qty: 14 0RF gabapentin 300 mg capsule 300 mg PO QHS Qty: 90 1RF losartan-hydrochlorothiazide 50-12.5 mg tablet 1 tablet PO DAILY Qty: 90 1RF levothyroxine [Levoxyl] 150 mcg tablet 150 mcg PO DAILY Qty: 90 1RF Centrum Silver Women 8 mg iron-400 mcg-50 mcg tablet 1 tablet PO DAILY Qty: 90 0RF Follow-up/Referrals: Shahriar Daigle MD [Primary Care Provider, Family Practice]
[2025-05-28 14:30] LABS: Hematocrit 41.7 % (37.0-47.0); Hemoglobin 13.5 g/dL (12.0-15.0); Immature Granulocyte Percent A 0.4 % (0-0.5); Lymphocytes Absolute Auto 2.20 K/mm3 (0.9-3.2); Mean Corpuscular HGB Conc 32.4 g/dl (32-36); Mean Corpuscular Hemoglobin 31.4 pg (26-34); Mean Corpuscular Volume 97.0 fl (80-100); Nucleated Red Blood Cells Absolute Auto 0.000 K/mm3 (0.0-0.012); Nucleated Red Blood Cells Perc 0.0 % (0.0-0.2); Platelet Count Result 206 k/mm3 (150-375); Red Blood Count 4.30 M/mm3 (4.2-5.4); White Blood Count 7.9 K/mm3 (4.5-10.0)
[2025-05-28 14:41] LABS: Anion Gap 10 mmol/L (4-12); Blood Urea Nitrogen 27 mg/dL (7-17); Calcium 10.1 mg/dL (8.4-10.2); Carbon Dioxide 23 mmol/L (22-30); Chloride 105 mmol/L (98-107); Estimated CRCL calculation 27 ml/min; Estimated Glomerular Filt Rate 35; Glucose 164 mg/dL (65-110); Potassium 3.4 mmol/L (3.4-5.0); Sodium 138 mmol/L (137-145)
[2025-05-28 14:54] LABS: Troponin I 0.019 ng/mL (0.000-0.034)
[2025-05-28 16:06] LABS: Add Urine Microscopic? YES; Appearance Urine Clear (Clear); Glucose Urine UA Negative (Negative); Leukocyte Esterase Ur 1+ LEU/UL (Negative); Nitrate Urine Negative (Negative); Specific Grav Ur 1.014 (1.001-1.035)
[2025-05-28 16:30] VITALS: BP 185/94; PULSE 99; RESP 14; O2SAT 99
--- OUTSIDE RECORDS SUMMARY | 2025-05-29 14:07 | XMS_ITS | Clinical Summary ---
Author Organization [facility] Address [address] [place] [address] Care Team Providers Care Aircraft Designer Name Role Phone Kenneth Boss MD Primary Care Provider [phone] Source Comments [facility],non-owned Affiliates and Associated Physician Practices is amultiple site organization consisting of ambulatory clinics and hospital sitesin [place], [place] and [place]. This disclosure is being madepursuant to the Care Everywhere program and may not contain all information available regarding this patient. 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
== END 2025-05-28 17:20 | disposition home or self-care (01) ==
PROVIDERS: Emergency Provider Student in an Organized Health Care Education/Training Program; PCP Family Medicine
DX: R53.1 Weakness (principal); E11.22 Type 2 diabetes mellitus with diabetic chronic kidney disease; N18.9 Chronic kidney disease, unspecified; E78.5 Hyperlipidemia, unspecified; Z85.3 Personal history of malignant neoplasm of breast; E07.9 Disorder of thyroid, unspecified; F17.210 Nicotine dependence, cigarettes, uncomplicated; Z79.899 Other long term (current) drug therapy; R94.31 Abnormal electrocardiogram [ECG] [EKG]
CPT/HCPCS: 36415; 80048; 81001; 84484; 85025; 87086; 93005; 99284

== ENCOUNTER 2025-06-09 18:43 | Inpatient (IN) | payer MEDICARE, SELFPAY ==
[2025-06-09] VITALS (12 sets, daily range): BP systolic 152–183; BP diastolic 83–104; PULSE 71–96; RESP 12–18; TEMP 36.6–37.2; O2SAT 92–98
--- NOTE | ~2025-06-09 | CT_ITS ---
EXAMINATION: CT brain wo con DATE: 06/09/2025 19:55 INDICATION: Syncope. TECHNIQUE: Computed tomography (CT) of the head was performed without intravenous contrast. The mA was adjusted according to patient size. Iterative reconstruction technique was employed. The dose-length product was 681.00 mGy-cm. COMPARISON: Examination dated 05/12/2025. FINDINGS: No evidence of intracranial bleed or extra-axial collections are seen. Stable chronic small vessel ischemic change of periventricular white matter. No midline shift. Sinuses and mastoids do not show acute findings. IMPRESSION: 1. No acute intracranial lesions this noncontrast study. Stable chronic ischemic changes particularly in the left frontal region. Reviewed, dictated and finalized at location T. HIATRIC ARNP IMPRESSION: 1. No acute intracranial lesions this noncontrast study. Stable chronic ischemi c changes particularly in the left frontal region.
--- NOTE | ~2025-06-09 | MR_ITS ---
EXAMINATION: MR brain/brain stem wo con DATE: 06/11/2025 14:41 INDICATION: Syncope. TECHNIQUE: Magnetic resonance imaging (MRI) of the brain and brainstem was performed without intravenous contrast. Sequences include diffusion images, T2*gradient echo sequence, T1, FLAIR and T2 images. COMPARISON: CT brain dated 06/09/2025 FINDINGS: No acute ischemic lesions are seen on the diffusion sequence. No intracranial bleed or extra-axial collections are seen. Chronic ischemic changes are noted on the FLAIR sequence including periventricular white matter in the left parietal region. No ventriculomegaly or midline shift. IMPRESSION: 1. No evidence of acute ischemia. No intracranial bleed. Extensive chronic ischemic changes on the FLAIR sequence noted. 2. No intracranial space-occupying lesions, ventriculomegaly or midline shift. Reviewed, dictated and finalized at location T. H PROFESSIONAL ATHLETES IMPRESSION: 1. No evidence of acute ischemia. No intracranial bleed. Extensive chronic isch emic changes on the FLAIR sequence noted. 2. No intracranial space-occupying lesions, ventriculomegaly or midline shift.
--- NOTE | ~2025-06-09 | XR_ITS ---
EXAMINATION: XR chest 2V DATE: 06/09/2025 19:44 INDICATION: Syncope. TECHNIQUE: Frontal and lateral views of the chest were obtained. COMPARISON: None. FINDINGS: Heart size is normal. Atherosclerotic aorta. Lungs do not show acute findings. IMPRESSION: 1. No acute pulmonary findings. Atherosclerotic aorta. Reviewed, dictated and finalized at location T. H CLEANER
--- NOTE | ~2025-06-09 | US_ITS ---
EXAMINATION: US carotid duplex BI DATE: 06/10/2025 13:47 INDICATION: Syncope. TECHNIQUE: Grayscale, color Doppler, and pulsed Doppler images of the cervical carotid arteries were obtained. The degree of vessel stenosis is placed in one of the following categories: normal, <50%, 50-69%, >=70% but less than near- occlusion, near-occlusion, or total occlusion. Note that percent stenosis relative to normal distal artery lumen diameter is indirectly measured from velocity measurements as described by Royce, et al. Radiology 2003; 229:340-346. COMPARISON: CT head without contrast dated 06/09/2025 FINDINGS: RIGHT: The right common carotid artery (CCA) peak systolic velocity (PSV) is 76 cm/s. The right internal carotid artery (ICA) PSV is 50 cm/s. The right ICA end- diastolic velocity (EDV) is 11 cm/s. The right ICA/CCA PSV ratio is 0.8. Grayscale and color Doppler images yield an estimate of less than 50%% diameter reduction from plaque in the ICA. There is antegrade flow in the right vertebral artery. LEFT: The left CCA PSV is 79 cm/s. The left ICA PSV is 59 cm/s. The left ICA EDV is 18 cm/s. The left ICA/CCA PSV ratio is 1.1. Grayscale and color Doppler images yield an estimate of less than 50% diameter reduction from plaque in the ICA. There is antegrade flow in the left vertebral artery. IMPRESSION: 1. No evidence of hemodynamically significant atherosclerotic obstruction of common and internal carotid arteries in the neck. 2. Antegrade flow noted in the vertebral arteries on both sides. Reviewed, dictated and finalized at location T. R IN IMPRESSION: 1. No evidence of hemodynamically significant atherosclerotic obstruction of co mmon and internal carotid arteries in the neck. 2. Antegrade flow noted in the vertebral arteries on both sides.
--- NOTE | ~2025-06-09 | CT_ITS ---
EXAMINATION: CT cervical spine wo con DATE: 06/09/2025 19:55 INDICATION: Trauma. TECHNIQUE: Computed tomography (CT) of the cervical spine was performed without intravenous contrast. Automated exposure control and iterative reconstruction technique were employed. The dose-length product was 191.72 mGy-cm. COMPARISON: None FINDINGS: No acute bony lesions are cervical vertebrae. Bones are osteopenic. Moderate multilevel degenerative disc changes are noted predominantly at C5-6, C6-7 levels with facet arthropathy. No compromise of bony spinal canal. IMPRESSION: 1. No acute abnormalities of C-spine. Degenerative disc disease and facet arthropathy in the lower cervical spine. Reviewed, dictated and finalized at location T. UCTOR AND ENGINEER IMPRESSION: 1. No acute abnormalities of C-spine. Degenerative disc disease and facet arthr opathy in the lower cervical spine.
--- NOTE | 2025-06-09 18:52 | ECG_ITS ---
Test Date: 2025-06-09 18:48:28 Measurements Intervals [place] Rate: 97 P: -1 CA: 179 QRS: -59 QRSD: 93 T: 80 QT: 369 QTc: 470 Interpretive Statements SINUS RHYTHM LEFT ANTERIOR FASCICULAR BLOCK NONSPECIFIC T-WAVE ABNORMALITY Electronically Signed On 06-09-2025 20:06:36 WAIVER ANALYST by Андрей Rico D.O
[2025-06-09 19:22] LABS: Hematocrit 43.1 % (37.0-47.0); Hemoglobin 14.8 g/dL (12.0-15.0); Immature Granulocyte Percent A 0.3 % (0-0.5); Lymphocytes Absolute Auto 2.23 K/mm3 (0.9-3.2); Mean Corpuscular HGB Conc 34.3 g/dl (32-36); Mean Corpuscular Hemoglobin 31.6 pg (26-34); Mean Corpuscular Volume 92.1 fl (80-100); Nucleated Red Blood Cells Absolute Auto 0.000 K/mm3 (0.0-0.012); Nucleated Red Blood Cells Perc 0.0 % (0.0-0.2); Platelet Count Result 245 k/mm3 (150-375); Red Blood Count 4.68 M/mm3 (4.2-5.4); White Blood Count 9.8 K/mm3 (4.5-10.0)
[2025-06-09 19:37] LABS: Alanine Aminotransferase 13 U/L (6-35); Albumin Level 4.4 g/dL (3.5-5.1); Alkaline Phosphatase 72 U/L (38-126); Anion Gap 10 mmol/L (4-12); Aspartate Amino Transferase 29 U/L (14-36); Bilirubin,Total 0.6 mg/dL (0.2-1.3); Blood Urea Nitrogen 34 mg/dL (7-17); Calcium 10.2 mg/dL (8.4-10.2); Carbon Dioxide 24 mmol/L (22-30); Chloride 100 mmol/L (98-107); Estimated CRCL calculation 26 ml/min; Estimated Glomerular Filt Rate 35; Glucose 185 mg/dL (65-110); Potassium 3.3 mmol/L (3.4-5.0); Sodium 134 mmol/L (137-145); Total Protein 7.9 g/dL (6.3-8.2)
[2025-06-09] MEDS: ONDANSETRON INJ 4 MG/2 ML VIAL IV PUSH (20:40)
[2025-06-09 21:13] LABS: Cannabinoid Screen Urine Negative (Negative)
--- NOTE | 2025-06-09 21:32 | PC.NURSE ---
Pt refusing to stand for orthostatic BP.
[2025-06-09 23:18] LABS: Add Urine Microscopic? NO; Appearance Urine Clear (Clear); Glucose Urine UA Negative (Negative); Leukocyte Esterase Ur Negative LEU/UL (Negative); Nitrate Urine Negative (Negative); Specific Grav Ur 1.015 (1.001-1.035)
[2025-06-09 23:32] LABS: Magnesium 1.6 mg/dL (1.6-2.3)
[2025-06-09] MEDS: SODIUM CHLORIDE 0.9% IV 1,000 ML 999 ML IV CONT (23:33)
[2025-06-09 23:40] LABS: Troponin I < 0.012 ng/mL (0.000-0.034)
--- NOTE | 2025-06-09 23:52 | ED.GENADULT ---
HPI - General Adult General Chief complaint: Syncope Stated complaint: SYNCOPE, NAUSEA, FACIAL LAC Time Seen by Provider: 06/09/25 22:58 History of Present Illness HPI narrative: Patient 74-year-old female presents emergency department with chief complaint of multiple syncopal episodes. Patient has recently seen in the emergency department after a syncopal episode and today has been feeling weak. The family reports that she has been more confused lately patient struck her head against a table and the patient reports he has been having episodes of lightheadedness. Related Data Home Medications ?Medication ?Instructions ?Recorded ?Confirmed ?Last Taken ?Type epinephrine 0.3 mg/0.3 mL 0.3 mg IM PRN PRN Allergic Reaction 06/19/23 01/13/25 Unknown History injection, auto-injector Allergies Allergy/AdvReac Type Severity Reaction Status Date / Time QUINTON Inhibitors Allergy Severe Angioedema Verified 06/09/25 18:58 Review of Systems Review of Systems: A 10 system review of systems was completed on the patient and is negative except for what is stated in the HPI. Nursing and ancillary documentation was reviewed. [facility] Past Medical History Medical History Falls BMI 24.0-24.9, adult Cataract Breast cancer Thyroid disease Surgical History Surgical History H/O breast surgery Family History Family History Father Family history of cardiovascular disease, Onset Age: 87 Mother Family history of cardiovascular disease, Onset Age: 93 Sibling No problems noted. Social History Social History Smoking packs per day: 1 Smoking cigarettes per day: 20.0 Smoking status: Current every day smoker Tobacco type: cigarettes Second hand tobacco smoke exposure: No Alcohol intake: never Substance use: never Substance use type: does not use Do You Feel Safe in your Home?: Yes Lack of Transportation: YES Lack of Food: Never True Current Housing: I Have Housing Concerned About Future Housing: No Difficulty Paying Gas/Electric Bills: No Difficulty Paying for Meds: No Currently Unemployed: No Education: High School Diploma/GED Difficulty w/ Childcare or Family Care: No Living arrangements: with family Occupation/Education: retired Additional occupation/education comments: [employer] Gender identity (if verbalized by the patient): Female Sexual Orientation (if Verbalized by the Patient): Straight or Heterosexual Spiritual care concerns: No Agree to blood products: Yes Exam Narrative: GENERAL: Well-appearing, well-nourished, and in no acute distress. HEAD: Normocephalic, small laceration of the left eyebrow. EYES: PERRLA and EOMI. ENT: Nares clear, no rhinorrhea or epistaxis. Mucous membranes moist. NECK: Supple. CHEST: Clear to auscultation. No respiratory distress. HEART: Regular rate and rhythm. No murmur heard. Normal peripheral pulses. ABDOMEN: Soft, nontender, nondistended, normal active bowel sounds. EXTREMITIES: Normal range of motion. No edema. SKIN: Warm, dry, no rash. NEURO: No focal deficits. Alert and oriented x3. PSYCH: Normal mood and affect. Course Vital Signs Vital signs: Vital Signs Temperature 36.6 C 06/09/25 18:40 Pulse Rate 82 06/09/25 18:40 Respiratory Rate 16 06/09/25 18:40 Blood Pressure 183/96 H 06/09/25 18:40 Pulse Oximetry 95 06/09/25 18:40 Oxygen Delivery Room Air 06/09/25 18:40 Temperature 37.2 C 06/09/25 20:02 Pulse Rate 87 06/09/25 21:23 Respiratory Rate 16 06/09/25 20:02 Blood Pressure 152/104 H 06/09/25 21:23 Pulse Oximetry 93 06/09/25 20:02 Oxygen Delivery Room Air 06/09/25 18:40 Medical Decision Making [facility] Narrative Medical decision making narrative: differential diagnosis includes head injury, cervical spine fracture, cardiac syncope, vasovagal syncope, EKG showed no acute ischemic changes urinalysis showed no evidence UTI CT head CT C-spine were obtained were negative case was discussed with the hospitalist patient admitted for further care Vital Signs Vital Signs: Vital Signs Temperature 36.6 C 06/09/25 18:40 Pulse Rate 82 06/09/25 18:40 Respiratory Rate 16 06/09/25 18:40 Blood Pressure 183/96 H 06/09/25 18:40 Pulse Oximetry 95 06/09/25 18:40 Oxygen Delivery Room Air 06/09/25 18:40 Temperature 37.2 C 06/09/25 20:02 Pulse Rate 87 06/09/25 21:23 Respiratory Rate 16 06/09/25 20:02 Blood Pressure 152/104 H 06/09/25 21:23 Pulse Oximetry 93 06/09/25 20:02 Oxygen Delivery Room Air 06/09/25 18:40 Lab Data 06/09/25 19:12 06/09/25 19:12 Labs: Lab Results 06/09/25 06/09/25 Range/Units 19:12 20:49 WBC 9.8 (4.5-10.0) K/mm3 RBC 4.68 (4.2-5.4) M/mm3 Hgb 14.8 (12.0-15.0) g/dL Hct 43.1 (37.0-47.0) % MCV 92.1 (80-100) fl MCH 31.6 (26-34) pg MCHC 34.3 (32-36) g/dl RDW 14.6 H (11.5-14.5) % Plt Count 245 (150-375) k/mm3 MPV 12.4 H (7.4-10.4) fl Immature Gran % (Auto) 0.3 (0-0.5) % Neut % (Auto) 70.5 (45.5-73.1) % Lymph % (Auto) 22.8 (18.3-44.2) % [place] % (Auto) 4.8 (2.6-8.5) % Eos % (Auto) 1.0 (0-4.4) % Baso % (Auto) 0.6 (0.2-1.2) % Lymph # (Auto) 2.23 (0.9-3.2) K/mm3 [place] # (Auto) 0.5 (0.1-0.6) K/mm3 Eos # (Auto) 0.1 (0-0.3) K/mm3 Baso # (Auto) 0.1 (0.0-0.1) K/mm3 Abs Immat Gran (auto) 0.03 (0.00-0.031) K/mm3 Absolute Neuts (auto) 6.9 H (1.3-6.7) K/mm3 Absolute Nucleated RBC 0.000 (0.0-0.012) K/mm3 Nucleated RBC % 0.0 (0.0-0.2) % Sodium 134 L (137-145) mmol/L Potassium 3.3 L (3.4-5.0) mmol/L Chloride 100 (98-107) mmol/L Carbon Dioxide 24 (22-30) mmol/L Anion Gap 10 (4-12) mmol/L BUN 34 H (7-17) mg/dL Creatinine 1.46 H (0.7-1.0) mg/dL Estim Creat Clear Calc 26 ml/min Estimated GFR 35 L (59 - ) Glucose 185 H (65-110) mg/dL Calcium 10.2 (8.4-10.2) mg/dL Magnesium 1.6 (1.6-2.3) mg/dL Total Bilirubin 0.6 (0.2-1.3) mg/dL AST 29 (14-36) U/L ALT 13 (6-35) U/L Alkaline Phosphatase 72 (38-126) U/L Troponin I < 0.012 (0.000-0.034) ng/mL Total Protein 7.9 (6.3-8.2) g/dL Albumin 4.4 (3.5-5.1) g/dL Urine Color Yellow (Yellow) Urine Appearance Clear (Clear) Urine pH 6.0 (5.0-9.0) Ur Specific [place] 1.015 (1.001-1.035) Urine Protein Negative (Negative) mg/dL Urine Glucose (UA) Negative (Negative) mg/dL Urine Ketones Negative (Negative) mg/dL Ur Blood (Man) Negative (Negative) Urine Nitrate Negative (Negative) Urine Bilirubin Negative (Negative) Urine Urobilinogen 0.2 (<2.0) mg/dL Leukocyte Esterase Rfl Negative (Negative) [place]/UL Urine Opiates Screen Negative (Negative) Urine Methadone Screen Negative (Negative) Ur Barbiturates Screen Negative (Negative) Ur Phencyclidine Scrn Negative (Negative) Ur Amphetamine Screen Negative (Negative) U Benzodiazepines Scrn Negative (Negative) Urine Cocaine Screen Negative (Negative) U Cannabinoids Screen Negative (Negative) Discharge Plan Discharge Clinical Impression: Syncope, Laceration of eyebrow, left Patient Disposition: Still a Patient Condition: Stable Patient Language: Scottish Prescriptions: No Action epinephrine 0.3 mg/0.3 mL auto-injector 0.3 mg IM PRN PRN (Reason: Allergic Reaction) Rx Instructions: as a single dose; may repeat once cholecalciferol (vitamin D3) 125 mcg (5,000 unit) capsule 125 mcg PO DAILY Qty: 90 3RF mirabegron [Myrbetriq] 25 mg tablet extended release 24 hr 25 mg PO DAILY Qty: 90 1RF levothyroxine [Synthroid] 175 mcg tablet 175 mcg PO DAILY Qty: 90 0RF Rx Instructions: Take daily at 7 am in the morning. Must take medication by itself with water Do NOT take with other medications. gabapentin 300 mg capsule 300 mg PO QHS Qty: 90 1RF losartan-hydrochlorothiazide 50-12.5 mg tablet 1 tablet PO DAILY Qty: 90 1RF Centrum Silver Women 8 mg iron-400 mcg-50 mcg tablet 1 tablet PO DAILY Qty: 90 0RF Follow-up/Referrals: Shahriar Daigle MD [Primary Care Provider, Family Practice] Time of Disposition: 23:54
[2025-06-10] VITALS (17 sets, daily range): BP systolic 95–179; BP diastolic 57–89; PULSE 75–100; RESP 12–19; TEMP 36.4–36.7; O2SAT 95–98; BMI 18.9
--- NOTE | 2025-06-10 | ECHO_ITS ---
Patient Info Name: Jimena Sims Age: 74 years : 1950 Gender: Female Ht: 68 in Wt: 124 lbs BSA: 1.63 m2 HR: 80 bpm BP: 150 / 57 mmHg Heart Rhythm: Sinus Rhythm Technical Quality: Fair Exam Date: 06/10/2025 1:36 PM Patient Status: I Admit Date: 06/10/2025 Exam Type: CA echo doppler color flow Complete two-dimensional, color flow and Doppler transthoracic echocardiogram is performed. Staff Referring Physician: Conor Stuart News Camera Operator: Kelley Meas Attending Provider: Nohemi Lerner Summary 1. Complete two-dimensional, color flow and Doppler transthoracic echocardiogram is performed. 2. Left ventricular chamber dimension is normal. 3. Left ventricular systolic function is normal, estimated at 65-70. 4. The left ventricular diastolic function is grade I diastolic dysfunction. 5. E/e' 12 is mildly elevated. Left Ventricle E/e' 12 is mildly elevated. Left ventricular chamber dimension is normal. Left ventricular systolic function is normal, estimated at 65-70. The left ventricular diastolic function is grade I diastolic dysfunction. Right Ventricle Right ventricular chamber dimension is normal. Right ventricular systolic function is normal and with normal TAPSE 2.0 cm. Left Atria Left atrial chamber dimension is normal. Right Atria Right atrial chamber dimension is normal. Aortic Valve The aortic valve is not well visualized. Cannot determine number of aortic valve leaflets. There is no aortic valve stenosis. There is no aortic valve regurgitation. Pulmonic Valve There is no pulmonic regurgitation. Mitral Valve There is no mitral valve stenosis. There is no mitral valve regurgitation. Tricuspid Valve There is no tricuspid valve regurgitation. Pericardium/Pleural There is no pericardial effusion. Inferior Vena Cava Normal inferior vena cava with >50% collapse upon inspiration consistent with normal right atrial pressure, 5 mmHg. Aorta The aortic root size at the sinus of Valsalva is normal. Left Ventricular Outflow Tract Name Value Normal LVOT 2D LVOT Diameter 2.0 cm LVOT Doppler LVOT Peak Velocity 99 cm/s LVOT Peak Gradient 4 mmHg LVOT Mean Gradient 2 mmHg LVOT VTI 15 cm LVOT VTI/AV VTI Ratio 0.8 LVOT Stroke Volume 48 ml LVOT CO 3.9 l/min LVOT CI 2.4 l/min/m2 Pulmonic Valve Name Value Normal RVOT Doppler RVOT Peak Velocity 87 cm/s RVOT Peak Gradient 3 mmHg PV Doppler PV Peak Velocity 94 cm/s PV Peak Gradient 4 mmHg Mitral Valve Name Value Normal MV Diastolic Function MV E Peak Velocity 49 cm/s MV A Peak Velocity 76 cm/s MV E/A 0.6 MV Decel Time (PW) 214 ms MV Annular TDI MV E/e' (Septal) 11.5 MV E/e' (Lateral) 13.8 MV E/e' (Average) 12.7 Tricuspid Valve Name Value Normal Estimated PAP/RSVP RA Pressure 5 mmHg <=5 TV Annular TDI TV Lateral Chloe s' Velocity 15.2 cm/s >=9.5 Aorta Name Value Normal Ascending Aorta Ao Root Diameter (MM) 3.6 cm Ao Root Diam Index (MM) 2.2 cm/m2 Aortic Valve Name Value Normal AV Doppler AV Peak Velocity 126 cm/s AV Peak Gradient 6 mmHg AV Mean Gradient 3 mmHg AV VTI 20 cm AV Area (Cont Eq VTI) 2.3 cm2 >=3.0 AV Area (Cont Eq Gio) 2.5 cm2 AV DI (Gio) 0.79 AV Regurgitation 2D LVOT Area 3.1 cm2 Ventricles Name Value Normal LV Dimensions 2D/MM IVS Diastolic Thickness (2D) 0.9 cm 0.6-1.0 LVID Diastole (2D) 4.7 cm 3.8-5.2 LVIW Diastolic Thickness (2D) 0.9 cm 0.6-0.9 LVID Systole (2D) 2.9 cm 2.2-3.5 LVOT Diameter 2.0 cm LV Mass (2D Cubed) 145.01 g 67.00-162.00 LV Mass Index (2D Cubed) 89 g/m2 43-95 Relative Wall Thickness (2D) 0.40 <=0.42 LV Fractional Shortening/Ejection Fraction 2D/MM LV Fractional Shortening (2D) 37 % 27-45 LV EF (2D Teichholz) 67 % LV Diastolic Volume (4C MOD) 35 ml LV EF (4C MOD) 65 % LV Diastolic Volume (2C MOD) 35 ml LV EF (2C MOD) 58 % LV Diastolic Volume (BP MOD) 38 ml 46-106 LV Diastolic Volume Index (BP MOD) 23 ml/m2 29-61 LV Systolic Volume (BP MOD) 14 ml 14-42 LV Systolic Volume Index (BP MOD) 9 ml/m2 8-24 LV EF (BP MOD) 62 % 54-74 LV Diastolic Length (4C) 6.5 cm LV Systolic Length (4C) 6.0 cm LV Stroke Volume (4C MOD) 23 ml Atria Name Value Normal LA Dimensions LA Dimension (MM) 3.4 cm 2.7-3.8 LA Volume (4C A-L) 34 ml LA Volume (BP A-L) 39 ml RA Dimensions RA Area (4C) 7.9 cm2 <=18.0 Report Signatures
--- NOTE | 2025-06-10 00:36 | WPCEDHO ---
ED Hand Off Checklist All vitals saved:yes IV Site documented:yes All med administrations documented:yes Triage Note Triage Note PT TO ED [facility]IA [facility] FROM HOME 06/09/25 18:40 FOR EVAL S/P SYNCOPAL EVENT. BRIEF LOC PER FAMILY AND WOKE UP PRIOR TO EMS ARRIVAL. STRUCK HEAD ON COFFEE TABLE. LAC TO OUTER ASPECT OF L EYEBROW. BLEEDING CONTROLLED. PT AND FAMILY REPORT THAT SHE HAS BEEN INTO THE ED A FEW TIMES FOR INTERMITTENT DIZZINESS AND HAD FULL WORKUPS. UNCLEAR THE DIAGNOSES. C COLLAR IN PLACE Allergies QUINTON Inhibitors Allergy (Severe, Verified 06/09/25 18:58) Angioedema Family History (Last Reviewed 06/09/25 @ 23:54 by Jakob Judd MD) Father Family history of cardiovascular disease Mother Family history of cardiovascular disease Sibling No problems noted. Administered/Completed Medications Discontinued Medications Sodium Chloride (Normal Saline Iv) 1,000 mls @ 999 mls/hr IV CONT .Q1H1M STA Stop: 06/10/25 00:08 Last Admin: 06/09/25 23:33 Dose: 999 mls/hr Documented By: JOHN Ondansetron HCl (Ondansetron Inj 4 Mg/2 Ml Vial) 4 mg IV PUSH ONCE STA Stop: 06/09/25 20:20 Last Admin: 06/09/25 20:40 Dose: 4 mg Documented By: JOHN Notes 06/09/25 21:32 Nurse Note by Teresita Fontenot Pt refusing to stand for orthostatic BP. Initialized on 06/09/25 21:32 - END OF NOTE Interventions/Assessments IV / Saline Lock, Insert Start: 06/09/25 18:36 Freq: Status: Active Protocol: Document 06/09/25 18:40 CFG (Rec: 06/09/25 18:48 CFG [id number]) IV Assessment Peripheral Access Left Forearm IV Catheter Access Initiated Before Arrival IV Insertion Date 06/09/25 IV Insertion Time 18:40 Catheter Gauge 20 Ultrasound Used for No Placement IV Site Assessment WNL IV Care and WNL Maintenance PA: Cardiovascular Assessment Start: 06/09/25 18:36 Freq: Status: Complete Protocol: Document 06/09/25 18:45 CFG (Rec: 06/09/25 18:51 CFG [id number]) Cardiovascular Assessment Cardiovascular None Symptoms Skin Description Normal Color Heart Sounds Normal Rhythm/Strength Bilateral Monitor Rhythm Regular EKG Rythm Sinus Rhythm PA: Neurological Assessment Start: 06/09/25 18:36 Freq: Status: Complete Protocol: Document 06/09/25 18:45 CFG (Rec: 06/09/25 18:51 CFG [id number]) Neurological Assessment Level of Alert,Awake Consciousness Arousable to Verbal Orientation Oriented to Person,Oriented to Place,Oriented to Time Neurological History of Loss of Consciousness Symptoms Hallucination Type None Unable to Redirect No Behavior Behavior Appropriate,Cooperative Patient Able to Comprehend Comprehension Memory Description Intact Ability to Maintain Unable to Assess Balance Facial Symmetry Symmetrical Speech Pattern Clear Ability to Swallow Normal Tongue Position Midline Finger to Nose Test Activity Impossible Heel to Barron Test Activity Impossible Bilateral All Extremities Extremity Movement Normal Description Bilateral All Extremities Sensation Normal Description [place] Coma Scale Eyes Open Verbal Oriented and Alert Motor Follows Commands [place] Coma Total 15 Score Last Vital Signs Temperature 98.9 F 06/09/25 20:02 Pulse Rate 79 06/10/25 00:01 Respiratory Rate 19 06/10/25 00:01 Pulse Oximetry 98 06/09/25 22:31 Blood Pressure 175/89 H 06/10/25 00:01 Blood Pressure Mean 112 06/10/25 00:01 Blood Pressure Position Sitting 06/09/25 21:23 Oxygen Delivery Room Air 06/09/25 18:40 Weight 55.5 kg 06/09/25 18:40 Last Result - Abnormals Only RDW 14.6 % (11.5-14.5) H 06/09/25 19:12 MPV 12.4 fl (7.4-10.4) H 06/09/25 19:12 Absolute Neuts (auto) 6.9 K/mm3 (1.3-6.7) H 06/09/25 19:12 Sodium 134 mmol/L (137-145) L 06/09/25 19:12 Potassium 3.3 mmol/L (3.4-5.0) L 06/09/25 19:12 BUN 34 mg/dL (7-17) H 06/09/25 19:12 Creatinine 1.46 mg/dL (0.7-1.0) H 06/09/25 19:12 Estimated GFR 35 (59-) L 06/09/25 19:12 Glucose 185 mg/dL (65-110) H 06/09/25 19:12 Most Recent Suicide Severity Rating Suicide Severity Rating NO RISK INDICATED 06/09/25 18:40
--- NOTE | 2025-06-10 01:05 | ADMGEN ---
This patient, Jimena Sims, was admitted to Medical Room 253-01. Patient/family oriented to hospital policies and general routines including ID bracelet, bed and alarms, visiting hours, pain management, procedures, bathroom and other care routines, personal items, smoking policy, room service/diet, and visiting hours. Information on how to activate the Rapid Response Team has been discussed. Patient/Family are encouraged to report perceived risks to care and to ask questions if they do not understand what they are told or what they should do.
[2025-06-10] MEDS: LEVOTHYROXINE SODIUM 25 MCG TABLET PO (06:10)
[2025-06-10] MEDS: LEVOTHYROXINE SODIUM 150 MCG TABLET PO (06:10)
[2025-06-10 06:47] LABS: Hematocrit 38.0 % (37.0-47.0); Hemoglobin 12.7 g/dL (12.0-15.0); Mean Corpuscular HGB Conc 33.4 g/dl (32-36); Mean Corpuscular Hemoglobin 31.3 pg (26-34); Mean Corpuscular Volume 93.6 fl (80-100); Platelet Count Result 212 k/mm3 (150-375); Red Blood Count 4.06 M/mm3 (4.2-5.4); White Blood Count 10.7 K/mm3 (4.5-10.0)
--- NOTE | 2025-06-10 07:21 | PM.IMHP ---
H&P: HPI History of Present Illness Date/Time: 06/10/25 07:21 Chief Complaint: Syncope Narrative: Patient is a 74-year-old female with a past medical history of contract, breast cancer, thyroid disease visited ED due to multiple episodes of syncope. As per family patient has been recently more confused and possibly struck her head against the table. CT of the head shows no acute intracranial lesions. Stable chronic ischemic changes particularly in the left frontal region. Cervical spine CT shows no acute abnormalities of see pain, degenerative did ask disease and facet arthropathy in the lower cervical spine. Chest x-ray no acute pulmonary findings. Arthrosclerotic aorta. No evidence of UTI. Reviewed UDS. Ordered orthostatic,carotis US, and Echo. Review of records indicates the patient had elevated TSH on labs although improved from previous labs with Dr. Riley from October 2024.Dr. Daigle switched her to myrbetriq months ago due to confusion and fall risk with oxybutynin.Called sandra the person to notify but unable to reach her. Patient is currently on Levothyroxine 175 and increased 187.5 mcg and advised to follow up TSH in 4 to 6 weeks. Review of Systems Review of Systems: A 10 system review of systems was completed on the patient and is negative except for what is stated in the HPI. Nursing and ancillary documentation was reviewed. [facility] Past Medical History Medical History Falls BMI 24.0-24.9, adult Cataract Breast cancer Thyroid disease Surgical History Surgical History H/O breast surgery Family History Family History Father Family history of cardiovascular disease, Onset Age: 87 Mother Family history of cardiovascular disease, Onset Age: 93 Sibling No problems noted. Social History Social History Smoking packs per day: 1 Smoking cigarettes per day: 20.0 Smoking status: Former smoker Tobacco type: cigarettes Second hand tobacco smoke exposure: No Alcohol intake: never Substance use: never Substance use type: does not use Do You Feel Safe in your Home?: Yes Lack of Transportation: No Lack of Food: Never True Current Housing: I Have Housing Concerned About Future Housing: No Difficulty Paying Gas/Electric Bills: No Difficulty Paying for Meds: No Currently Unemployed: No Education: High School Diploma/GED Difficulty w/ Childcare or Family Care: No Living arrangements: with family Occupation/Education: retired Additional occupation/education comments: [employer] Gender identity (if verbalized by the patient): Female Sexual Orientation (if Verbalized by the Patient): Straight or Heterosexual Spiritual care concerns: No Agree to blood products: Yes Meds Home Medications and Allergies Home Medications ?Medication ?Instructions ?Recorded ?Confirmed ?Type gabapentin 300 mg capsule 300 mg PO QHS #90 caps 12/11/24 06/10/25 Rx losartan 50 mg-hydrochlorothiazide 1 tablet PO DAILY #90 tabs 12/11/24 06/10/25 Rx 12.5 mg tablet [id number] 8 mg-folic 400 1 tablet PO DAILY #90 tabs 12/11/24 06/10/25 Rx mcg-K 50 mcg-lutein 300 mcg tablet (Centrum Silver Women) cholecalciferol (vitamin D3) 125 125 mcg PO DAILY #90 caps 01/13/25 06/10/25 Rx mcg (5,000 unit) capsule mirabegron 25 mg tablet,extended 25 mg PO DAILY #90 tabs 01/13/25 06/10/25 Rx release 24 hr (Myrbetriq) levothyroxine 175 mcg tablet 175 mcg PO DAILY #90 tabs 05/29/25 06/10/25 Rx (Synthroid) Allergies Allergy/AdvReac Type Severity Reaction Status Date / Time QUINTON Inhibitors Allergy Severe Angioedema Verified 06/10/25 01:16 Vital Signs Vital Signs - 24 hr 06/09/25 18:40 06/09/25 19:56 06/09/25 20:02 Temperature 97.8 F 98.9 F Pulse Rate 82 80 82 Respiratory Rate 16 16 16 Blood Pressure 183/96 H 182/93 H 162/85 H Pulse Oximetry 95 94 93 Oxygen Delivery Room Air 06/09/25 20:03 06/09/25 20:15 06/09/25 20:30 Temperature Pulse Rate 83 82 82 Respiratory Rate 16 13 16 Blood Pressure Pulse Oximetry 93 92 94 Oxygen Delivery 06/09/25 20:31 06/09/25 21:15 06/09/25 21:21 Temperature Pulse Rate 83 88 93 Respiratory Rate 18 15 Blood Pressure 160/84 H 157/92 H Pulse Oximetry 94 93 Oxygen Delivery 06/09/25 21:23 06/09/25 21:31 06/09/25 22:31 Temperature Pulse Rate 87 71 96 Respiratory Rate 14 12 Blood Pressure 152/104 H 176/83 H 171/99 H Pulse Oximetry 96 98 Oxygen Delivery 06/10/25 00:01 06/10/25 01:28 06/10/25 01:30 Temperature 97.6 F Pulse Rate 79 79 76 Respiratory Rate 19 19 12 Blood Pressure 175/89 H 179/78 H Pulse Oximetry 98 97 Oxygen Delivery Room Air 06/10/25 04:00 06/10/25 05:02 Temperature 97.6 F Pulse Rate 87 80 Respiratory Rate 12 Blood Pressure 150/57 H Pulse Oximetry 97 Oxygen Delivery Exam Narrative: GENERAL: Well-appearing, well-nourished, and in no acute distress. HEAD: Normocephalic, small laceration of the left eyebrow. EYES: PERRLA and EOMI. ENT: Nares clear, no rhinorrhea or epistaxis. Mucous membranes moist. NECK: Supple. CHEST: Clear to auscultation. No respiratory distress. HEART: Regular rate and rhythm. No murmur heard. Normal peripheral pulses. ABDOMEN: Soft, nontender, nondistended, normal active bowel sounds. EXTREMITIES: Normal range of motion. No edema. SKIN: Warm, dry, no rash. NEURO: No focal deficits. Alert and oriented x3. PSYCH: Normal mood and affect. H&P: Results Labs Labs: Short CBC 06/09/25 06/10/25 Range/Units 19:12 06:35 WBC 9.8 10.7 H (4.5-10.0) K/mm3 Hgb 14.8 12.7 (12.0-15.0) g/dL Hct 43.1 38.0 (37.0-47.0) % Plt Count 245 212 (150-375) k/mm3 [facility] 06/09/25 19:12 Sodium 134 L Potassium 3.3 L Chloride 100 Carbon Dioxide 24 BUN 34 H Creatinine 1.46 H Glucose 185 H Calcium 10.2 Cardiac Enzymes 06/09/25 Range/Units 19:12 Troponin I < 0.012 (0.000-0.034) ng/mL Liver Function 06/09/25 Range/Units 19:12 Total Bilirubin 0.6 (0.2-1.3) mg/dL AST 29 (14-36) U/L ALT 13 (6-35) U/L Alkaline Phosphatase 72 (38-126) U/L Albumin 4.4 (3.5-5.1) g/dL Urine 06/09/25 Range/Units 20:49 Urine Color Yellow (Yellow) Urine Appearance Clear (Clear) Urine pH 6.0 (5.0-9.0) Ur Specific [place] 1.015 (1.001-1.035) Urine Protein Negative (Negative) mg/dL Urine Glucose (UA) Negative (Negative) mg/dL Assessment and Plan Assessment and plan (1) Syncope: Code(s): R55 - Syncope and collapse Status: Acute Assessment and Plan: Negative trauma workup Medications were reviewed Evaluated for incidence of hypoglycemia Avoid any sedatives or anxiolytic Reviewed a CT head and CT neck Reviewed TSH and increased levothyroxine from 175-187.5 Repeat TSH in 4-6 weeks Ordered echocardiogram and carotid ultrasound Ordered orthostatic vitals Neuro check q.4 hours On telemetry to evaluate for any arrhythmias Will discharge with event monitor PT OT evaluation (2) Falls: Code(s): R29.6 - Repeated falls Status: Acute Assessment and Plan: Same as above (3) Chronic kidney disease, stage III (moderate): Qualifiers: Chronic kidney disease stage 3 subtype: stage 3b (GFR 30-44) Qualified Code(s): N18.32 - Chronic kidney disease, stage 3b Code(s): N18.30 - Chronic kidney disease, stage 3 unspecified Status: Acute Assessment and Plan: Avoid nephrotoxic drugs Trend BUN and creatinine Follow-up as outpatient (4) Urinary incontinence: Qualifiers: Urinary Incontinence type: mixed stress and urge incontinence Qualified Code(s): N39.46 - Mixed incontinence Code(s): R32 - Unspecified urinary incontinence Status: Acute Assessment and Plan: Continue Mirabegron (5) Hypothyroidism: Qualifiers: Hypothyroidism type: unspecified Qualified Code(s): E03.9 - Hypothyroidism, unspecified Code(s): E03.9 - Hypothyroidism, unspecified Status: Acute Assessment and Plan: Increased levothyroxine from 175-187.5 Repeat TSH in 4-6 weeks (6) Type 2 diabetes mellitus: Qualifiers: Diabetes mellitus complication status: with hyperglycemia Diabetes mellitus long term care administrator insulin use: without long term care administrator use Qualified Code(s): E11.65 - Type 2 diabetes mellitus with hyperglycemia Code(s): E11.9 - Type 2 diabetes mellitus without complications Status: Acute Assessment and Plan: Low-dose sliding scale Titrate as needed Hospitalist MIPS Advance Care Plan I have confirmed that the patient's Advanced Care Plan is present, code status is documented, or surrogate decision maker is listed in patient medical record.: Yes Medication Reconciliation I have utilized all available resources to obtain, update and review the patients current medications (includes all prescriptions, OTC, herbals, cannabis, and nutritional supplements).: Yes
[2025-06-10 07:42] LABS: Anion Gap 7 mmol/L (4-12); Blood Urea Nitrogen 35 mg/dL (7-17); Calcium 9.7 mg/dL (8.4-10.2); Carbon Dioxide 26 mmol/L (22-30); Chloride 103 mmol/L (98-107); Estimated CRCL calculation 28 ml/min; Estimated Glomerular Filt Rate 37; Glucose 147 mg/dL (65-110); Potassium 3.5 mmol/L (3.4-5.0); Sodium 136 mmol/L (137-145)
[2025-06-10] MEDS: LOSARTAN POTASSIUM 50 MG TABLET PO (08:35)
[2025-06-10] MEDS: CHOLECALCIFEROL (VITAMIN D3) 125 MCG (5,000 UNITS) TABLET PO (08:35)
[2025-06-10] MEDS: MIRABEGRON 25 MG ER TABLET PO (08:35)
[2025-06-10 08:53] LABS: Thyroid Stimulating Hormone Reflex 6.940 uIU/mL (0.465-4.68)
--- NOTE | 2025-06-10 10:12 | P.CONNEU_ITS ---
Assessment and Plan Assessment and plan (1) Syncope: Code(s): R55 - Syncope and collapse Status: Acute (2) Thyroid dysfunction: Code(s): E07.9 - Disorder of thyroid, unspecified Status: Acute Plan 1. Recurrent syncopal episode rule out the possibility of the seizure 2. Possibility of TIA 3. Thyroid dysfunction 4. Rule out the possibly orthostatic symptomatology which checking the blood pressure supine and upright while in the hospital 3 times a day and5 question early dementia because of ongoing confusion but again that would be diagnosis of exclusion. Consult date: 06/10/25 HPI: Jimena Sims is a 74 year old female Admitted to the hospital through the emergency for the complaints of multiple syncopal episodes in addition to the history of increasing confusion and with the information that she struck her head against a table. Patient is on the home medication of epinephrine for the allergic reaction on p.r.n. basis and she is also known to be allergic to Joesph inhibitors. She has ongoing history of in the past 1. Breast cancer 2. Thyroid disease 3. Cataract 4. Currently every day smoker with smoking cigarettes per day of 20 but no history of alcohol consumption. On initial exam in the emergency room she was found to have no focal neurological deficit. Her vital signs were normal except the blood pressure 183/96 , EKG revealed no evidence of atrial fibrillation ,CT of the head revealed no intracranial bleed, except the chronic ischemic changes in the left frontal region, the CT scan of cervical spine was normal Chest x-ray was negative. Patient has been receiving gabapentin 300mg HS, Synthroid 175mcg daily, losartan 50/12.5 daily, Mirabegron 25mg daily, Review of Systems 2 Review of Systems: All systems reviewed & are unremarkable except as noted in HPI and below PMFSH Past Medical History Medical History Falls BMI 24.0-24.9, adult Cataract Breast cancer Thyroid disease Surgical History Surgical History H/O breast surgery Family History Family History Father Family history of cardiovascular disease, Onset Age: 87 Mother Family history of cardiovascular disease, Onset Age: 93 Sibling No problems noted. Social History Social History Smoking packs per day: 1 Smoking cigarettes per day: 20.0 Smoking status: Former smoker Tobacco type: cigarettes Second hand tobacco smoke exposure: No Alcohol intake: never Substance use: never Substance use type: does not use Do You Feel Safe in your Home?: Yes Lack of Transportation: No Lack of Food: Never True Current Housing: I Have Housing Concerned About Future Housing: No Difficulty Paying Gas/Electric Bills: No Difficulty Paying for Meds: No Currently Unemployed: No Education: High School Diploma/GED Difficulty w/ Childcare or Family Care: No Living arrangements: with family Occupation/Education: retired Additional occupation/education comments: [employer] Gender identity (if verbalized by the patient): Female Sexual Orientation (if Verbalized by the Patient): Straight or Heterosexual Spiritual care concerns: No Agree to blood products: Yes Meds Home Medications and Allergies Home Medications ?Medication ?Instructions ?Recorded ?Confirmed ?Type gabapentin 300 mg capsule 300 mg PO QHS #90 caps 12/1106/10/25 Rx losartan 50 mg-hydrochlorothiazide 1 tablet PO DAILY # 90 tabs 12/11/24 06/10/25 Rx 12.5 mg tablet wwxoqncq-ffxj-tnpk 8 mg-folic 400 1 tablet PO DAILY #9 0 tabs 12/11/24 06/10/25 Rx mcg-K 50 mcg-lutein 300 mcg tablet (Centrum Silver Women) cholecalciferol (vitamin D3) 125 125 mcg PO DAILY #90 caps 01/13/25 06/10/25 Rx mcg (5,000 unit) capsule mirabegron 25 mg tablet,extended 25 mg PO DAILY #90 ta bs 01/13/25 06/10/25 Rx release 24 hr (Myrbetriq) levothyroxine 175 mcg tablet 175 mcg PO DAILY #90 tabs 05/29/25 06/10/25 Rx (Synthroid) Allergies Allergy/AdvReac Type Severity Reaction Status Date / Time JOESPH Inhibitors Allergy Severe Angioedema Verified 06/10/25 01:16 Vital Signs Vital Signs - 24 hr 06/09/25 18:40 06/09/25 19:56 06/09/25 20:02 Temperature 36.6 C 37.2 C Pulse Rate 82 80 82 Respiratory Rate 16 16 16 Blood Pressure 183/96 H 182/93 H 162/85 H Pulse Oximetry 95 94 93 Oxygen Delivery Room Air 06/09/25 20:03 06/09/25 20:15 06/09/25 20:30 Temperature Pulse Rate 83 82 82 Respiratory Rate 16 13 16 Blood Pressure Pulse Oximetry 93 92 94 Oxygen Delivery 06/09/25 20:31 06/09/25 21:15 06/09/25 21:21 Temperature Pulse Rate 83 88 93 Respiratory Rate 18 15 Blood Pressure 160/84 H 157/92 H Pulse Oximetry 94 93 Oxygen Delivery 06/09/25 21:23 06/09/25 21:31 06/09/25 22:31 Temperature Pulse Rate 87 71 96 Respiratory Rate 14 12 Blood Pressure 152/104 H 176/83 H 171/99 H Pulse Oximetry 96 98 Oxygen Delivery 06/10/25 00:01 06/10/25 01:28 06/10/25 01:30 Temperature 36.4 C Pulse Rate 79 79 76 Respiratory Rate 19 19 12 Blood Pressure 175/89 H 179/78 H Pulse Oximetry 98 97 Oxygen Delivery Room Air 06/10/25 04:00 06/10/25 05:02 06/10/25 08:31 Temperature 36.4 C Pulse Rate 87 80 77 Respiratory Rate 12 Blood Pressure 150/57 H 157/80 H Pulse Oximetry 97 Oxygen Delivery 06/10/25 08:38 06/10/25 08:45 06/10/25 09:20 Temperature Pulse Rate 75 Respiratory Rate Blood Pressure 136/80 Pulse Oximetry 95 Oxygen Delivery Room Air Room Air 06/10/25 09:24 06/10/25 09:27 Temperature Pulse Rate 78 85 Respiratory Rate Blood Pressure 147/77 H 140/79 Pulse Oximetry Oxygen Delivery Exam 2 Narrative: Revealed her to be awake alert cooperative in no obvious acute distress, head normocephalic with no cranial bruit, ear nose throat examination normal, neck supple with no cervical bruit, heart regular with no murmur, lungs clear to auscultation, abdomen is soft nontender, neurological examination revealed her to have normal mental status normal speech pupils round regular feels the vision full extraocular movements full face symmetrical tongue midline uvula midline motor examination revealed her to have sluggish reflexes in upper and lower extremities plantars downgoing there is no evidence of gross cerebellar deficit or or sensory deficit. Results Labs 06/10/25 06:35 06/10/25 06:35 Labs: Short CBC 06/09/25 06/10/25 Range/Units 19:12 06:35 WBC 9.8 10.7 H (4.5-10.0) K/mm3 Hgb 14.8 12.7 (12.0-15.0) g/dL Hct 43.1 38.0 (37.0-47.0) % Plt Count 245 212 (150-375) k/mm3 BMP 06/09/25 06/10/25 19:12 06:35 Sodium 134 L 136 L Potassium 3.3 L 3.5 Chloride 100 103 Carbon Dioxide 24 26 BUN 34 H 35 H Creatinine 1.46 H 1.40 H Glucose 185 H 147 H Calcium 10.2 9.7 Cardiac Enzymes 06/09/25 Range/Units 19:12 Troponin I < 0.012 (0.000-0.034) ng/mL Liver Function 06/09/25 Range/Units 19:12 Total Bilirubin 0.6 (0.2-1.3) mg/dL AST 29 (14-36) U/L ALT 13 (6-35) U/L Alkaline Phosphatase 72 (38-126) U/L Albumin 4.4 (3.5-5.1) g/dL Urine 06/09/25 Range/Units 20:49 Urine Color Yellow (Yellow) Urine Appearance Clear (Clear) Urine pH 6.0 (5.0-9.0) Ur Specific [place] 1.015 (1.001-1.035) Urine Protein Negative (Negative) mg/dL Urine Glucose (UA) Negative (Negative) mg/dL
[2025-06-10 10:42] LABS: Free T4 Free Thyroxine Reflex 0.89 ng/dL (0.78-2.19)
--- NOTE | 2025-06-10 11:41 | PC.NURSE ---
On 06/10/25, the student, [Sylvia Ya], provided care and completed [facility] documentation on this patient. I have reviewed the student's documentation and agree with the findings.
[2025-06-10 13:15] LABS: Total Triiodothyronine (T3) 0.72 NG/ML (0.82-1.58)
--- NOTE | 2025-06-10 13:33 | P.CDI_ITS ---
CDI Query Clarification Request BMI: 18.9 Nutritional Diagnostic Statement: Please refer to the comprehensive nutrition assessment for further information. If you agree with diagnosis of Severe Protein Malnutrition as related to inadequate protein energy intake with increased protein energy needs in setting of chronic disease (chronic kidney disease) as evidenced by minimal oral intake for > 1-2 months: moderate muscle wasting (temporalis) and moderate subcutaneous fat loss (temporalis, clavicle). Please specify severity if known: * Mild * Moderate * Severe * Other/Unknown <Jacqui Ventura RN - Last Filed: 06/10/25 13:34> Clarified Diagnosis Clarified Diagnosis: Severe <Conor Stuart MD - Last Filed: 06/10/25 15:59>
[2025-06-10] MEDS: GABAPENTIN 300 MG CAPSULE PO (21:31)
[2025-06-11] VITALS (11 sets, daily range): BP systolic 97–154; BP diastolic 51–118; PULSE 67–105; RESP 16; TEMP 36.7–36.8; O2SAT 96–98
[2025-06-11 05:30] LABS: Hematocrit 38.7 % (37.0-47.0); Hemoglobin 12.7 g/dL (12.0-15.0); Mean Corpuscular HGB Conc 32.8 g/dl (32-36); Mean Corpuscular Hemoglobin 31.2 pg (26-34); Mean Corpuscular Volume 95.1 fl (80-100); Platelet Count Result 204 k/mm3 (150-375); Red Blood Count 4.07 M/mm3 (4.2-5.4); White Blood Count 9.8 K/mm3 (4.5-10.0)
[2025-06-11 05:41] LABS: Anion Gap 7 mmol/L (4-12); Blood Urea Nitrogen 31 mg/dL (7-17); Calcium 9.8 mg/dL (8.4-10.2); Carbon Dioxide 27 mmol/L (22-30); Chloride 101 mmol/L (98-107); Estimated CRCL calculation 28 ml/min; Estimated Glomerular Filt Rate 36; Glucose 97 mg/dL (65-110); Sodium 135 mmol/L (137-145)
[2025-06-11] MEDS: LEVOTHYROXINE SODIUM 150 MCG TABLET PO (05:49)
[2025-06-11] MEDS: LEVOTHYROXINE SODIUM 12.5 MCG TABLET PO (05:50)
[2025-06-11] MEDS: LEVOTHYROXINE SODIUM 25 MCG TABLET PO (05:50)
[2025-06-11 05:52] LABS: Potassium 3.4 mmol/L (3.4-5.0)
[2025-06-11] MEDS: CHOLECALCIFEROL (VITAMIN D3) 125 MCG (5,000 UNITS) TABLET PO (08:29)
[2025-06-11] MEDS: LOSARTAN POTASSIUM 50 MG TABLET PO (08:29)
[2025-06-11] MEDS: MIRABEGRON 25 MG ER TABLET PO (08:29)
--- NOTE | 2025-06-11 16:57 | PM.IMPN ---
Progress Note: A&P Assessment and Plan (1) Syncope: Code(s): R55 - Syncope and collapse Status: Acute Assessment and Plan: Negative trauma workup Medications were reviewed Evaluated for incidence of hypoglycemia Avoid any sedatives or anxiolytic Reviewed a CT head and CT neck Reviewed TSH and increased levothyroxine from 175-187.5 Repeat TSH in 4-6 weeks Ordered echocardiogram and carotid ultrasound Ordered orthostatic vitals Neuro check q.4 hours On telemetry to evaluate for any arrhythmias Will discharge with event monitor PT OT evaluation (2) Falls: Code(s): R29.6 - Repeated falls Status: Acute Assessment and Plan: Same as above (3) Chronic kidney disease, stage III (moderate): Qualifiers: Chronic kidney disease stage 3 subtype: stage 3b (GFR 30-44) Qualified Code(s): N18.32 - Chronic kidney disease, stage 3b Code(s): N18.30 - Chronic kidney disease, stage 3 unspecified Status: Acute Assessment and Plan: Avoid nephrotoxic drugs Trend BUN and creatinine Follow-up as outpatient (4) Urinary incontinence: Qualifiers: Urinary Incontinence type: mixed stress and urge incontinence Qualified Code(s): N39.46 - Mixed incontinence Code(s): R32 - Unspecified urinary incontinence Status: Acute Assessment and Plan: Continue Mirabegron (5) Hypothyroidism: Qualifiers: Hypothyroidism type: unspecified Qualified Code(s): E03.9 - Hypothyroidism, unspecified Code(s): E03.9 - Hypothyroidism, unspecified Status: Acute Assessment and Plan: Increased levothyroxine from 175-187.5 Repeat TSH in 4-6 weeks (6) Type 2 diabetes mellitus: Qualifiers: Diabetes mellitus superintendent terminal insulin use: without snf use Diabetes mellitus complication status: with hyperglycemia Qualified Code(s): E11.65 - Type 2 diabetes mellitus with hyperglycemia Code(s): E11.9 - Type 2 diabetes mellitus without complications Status: Acute Assessment and Plan: Low-dose sliding scale Titrate as needed Subjective Date/time seen: 06/11/25 16:57 Interval history: Had long discussion with her friend who reports the patient lately has multiple falls. Ordered MRI. Pending results Review of Systems Review of Systems: A 10 system review of systems was completed on the patient and is negative except for what is stated in the HPI. Nursing and ancillary documentation was reviewed. Exam Narrative: GENERAL: Well-appearing, well-nourished, and in no acute distress. HEAD: Normocephalic, small laceration of the left eyebrow. EYES: PERRLA and EOMI. ENT: Nares clear, no rhinorrhea or epistaxis. Mucous membranes moist. NECK: Supple. CHEST: Clear to auscultation. No respiratory distress. HEART: Regular rate and rhythm. No murmur heard. Normal peripheral pulses. ABDOMEN: Soft, nontender, nondistended, normal active bowel sounds. EXTREMITIES: Normal range of motion. No edema. SKIN: Warm, dry, no rash. NEURO: No focal deficits. Alert and oriented x3. PSYCH: Normal mood and affect. Objective Data Vital Signs Vital Signs: Vital Signs - 24 hr 06/10/25 20:00 06/10/25 20:00 06/10/25 21:30 Temperature 97.9 F Pulse Rate 100 96 83 Respiratory Rate 16 16 Blood Pressure 140/83 Pulse Oximetry 96 96 Oxygen Delivery Room Air 06/10/25 21:30 06/10/25 21:34 06/10/25 21:42 Temperature Pulse Rate 83 100 Respiratory Rate Blood Pressure 140/83 118/70 95/63 L Pulse Oximetry Oxygen Delivery 06/11/25 00:00 06/11/25 04:00 06/11/25 06:28 Temperature 98.3 F Pulse Rate 83 76 76 Respiratory Rate 16 Blood Pressure 116/61 Pulse Oximetry 98 Oxygen Delivery 06/11/25 08:00 06/11/25 08:00 06/11/25 08:00 Temperature Pulse Rate 67 Respiratory Rate Blood Pressure 141/68 H Pulse Oximetry Oxygen Delivery Room Air 06/11/25 08:28 06/11/25 09:35 06/11/25 09:35 Temperature Pulse Rate 82 Respiratory Rate Blood Pressure 154/92 H 141/118 H 97/51 L Pulse Oximetry Oxygen Delivery 06/11/25 12:00 06/11/25 12:55 Temperature Pulse Rate 98 Respiratory Rate Blood Pressure Pulse Oximetry Oxygen Delivery Room Air Intake/Output Intake/Output: Intake & Output 06/08/25 06/09/25 06/10/25 06/11/25 23:59 23:59 23:59 23:59 Intake Total 1945 Balance 1945 Meds/Results Medications: Active Medications Generic Name Dose Route Start Last Admin Trade Name Freq PRN Reason Stop Dose Admin Acetaminophen 650 mg 06/10/25 00:12 Acetaminophen 325 Mg Tablet PO Q4H PRN Mild Pain (1-3) or Fever Dextrose 12.5 gm 06/10/25 15:58 Dextrose 50% 25 Gm/50 Ml Syringe IV PUSH PRN PRN Hypoglycemia Protocol Gabapentin 300 mg 06/10/25 21:00 06/10/25 21:31 Gabapentin 300 Mg Capsule PO 300 mg QHS [facility] Administration Glucagon 1 mg 06/10/25 15:58 Glucagon For Inj 1 Mg Vial IM PRN PRN Hypoglycemia Protocol Glucose 15 gm 06/10/25 15:58 Glucose Oral Gel 15 Gm Of Glucse In 37.5 Gm Tube PO PRN PRN Hypoglycemia Protocol Hydrochlorothiazide 12.5 mg 06/10/25 09:00 06/11/25 08:29 Hydrochlorothiazide 12.5 Mg Capsule PO 12.5 mg QAM [facility] Administration Dextrose 1,000 mls @ 100 mls/hr 06/10/25 15:58 Dextrose 5% 1,000 Ml IVPB PRN PRN Hypoglycemia Protocol Insulin Aspart 2 - 5 units 06/10/25 17:00 06/11/25 16:57 Insulin Aspart (*Bkc) 100 Units/Ml SUB-Q Not Given TIDWM [facility] Protocol Insulin Aspart 1 - 2 units 06/10/25 21:00 06/10/25 21:39 Insulin Aspart (*Bkc) 100 Units/Ml SUB-Q Not Given HS [facility] Protocol Levothyroxine Sodium 150 mcg 06/10/25 06:30 06/11/25 05:49 Levothyroxine Sodium 150 Mcg Tablet PO 150 mcg DAILY@0630 [facility] Administration Levothyroxine Sodium 25 mcg 06/10/25 06:30 06/11/25 05:50 Levothyroxine Sodium 25 Mcg Tablet PO 25 mcg DAILY@0630 [facility] Administration Levothyroxine Sodium 12.5 mcg 06/11/25 06:30 06/11/25 05:50 Levothyroxine Sodium 12.5 Mcg Tablet PO 12.5 mcg DAILY@0630 [facility] Administration Losartan Potassium 50 mg 06/10/25 09:00 06/11/25 08:29 Losartan Potassium 50 Mg Tablet PO 50 mg QAM [facility] Administration Mirabegron 25 mg 06/10/25 09:00 06/11/25 08:29 Mirabegron 25 Mg Er Tablet PO 25 mg DAILY [facility] Administration Ondansetron HCl 4 mg 06/10/25 00:12 Ondansetron Inj 4 Mg/2 Ml Vial IV PUSH Q4H PRN Nausea Vitamin D 125 mcg 06/10/25 09:00 06/11/25 08:29 Cholecalciferol (Vitamin D3) 125 Mcg (5,000 Units) Tablet PO 125 mcg DAILY [facility] Administration Radiology Results: ITS Impressions Chest X-Ray 06/09/25 19:52 IMPRESSION: 1. No acute pulmonary findings. Atherosclerotic aorta. Head CT 06/09/25 19:57 IMPRESSION: 1. No acute intracranial lesions this noncontrast study. Stable chronic ischemic changes particularly in the left frontal region. Cervical Spine CT 06/09/25 19:59 IMPRESSION: 1. No acute abnormalities of C-spine. Degenerative disc disease and facet arthropathy in the lower cervical spine. Carotid Doppler Study 06/10/25 13:49 IMPRESSION: 1. No evidence of hemodynamically significant atherosclerotic obstruction of common and internal carotid arteries in the neck. 2. Antegrade flow noted in the vertebral arteries on both sides. Brain MRI 06/11/25 14:45 IMPRESSION: 1. No evidence of acute ischemia. No intracranial bleed. Extensive chronic ischemic changes on the FLAIR sequence noted. 2. No intracranial space-occupying lesions, ventriculomegaly or midline shift. Labs Labs: Laboratory Results - last 24 hr 06/10/25 06/10/25 06/11/25 16:45 21:34 05:07 WBC 9.8 RBC 4.07 L Hgb 12.7 Hct 38.7 MCV 95.1 MCH 31.2 MCHC 32.8 RDW 14.4 Plt Count 204 MPV 12.1 H Sodium 135 L Potassium 3.4 Chloride 101 Carbon Dioxide 27 Anion Gap 7 BUN 31 H Creatinine 1.41 H Estim Creat Clear Calc 28 Estimated GFR 36 L Glucose 97 POC Capillary Glucose 126 H 169 H Calcium 9.8 06/11/25 06/11/25 06/11/25 07:39 11:40 16:51 WBC RBC Hgb Hct MCV MCH MCHC RDW Plt Count MPV Sodium Potassium Chloride Carbon Dioxide Anion Gap BUN Creatinine Estim Creat Clear Calc Estimated GFR Glucose POC Capillary Glucose 96 158 H 98 Calcium Hospitalist MIPS Advance Care Plan I have confirmed that the patient's Advanced Care Plan is present, code status is documented, or surrogate decision maker is listed in patient medical record.: Yes Medication Reconciliation I have utilized all available resources to obtain, update and review the patients current medications (includes all prescriptions, OTC, herbals, cannabis, and nutritional supplements).: Yes
[2025-06-11] MEDS: GABAPENTIN 300 MG CAPSULE PO (20:54)
[2025-06-12] VITALS (13 sets, daily range): BP systolic 78–153; BP diastolic 53–83; PULSE 72–100; RESP 14–20; TEMP 36.5–36.8; O2SAT 94–98
[2025-06-12 05:17] LABS: Hematocrit 40.2 % (37.0-47.0); Hemoglobin 13.1 g/dL (12.0-15.0); Mean Corpuscular HGB Conc 32.6 g/dl (32-36); Mean Corpuscular Hemoglobin 31.3 pg (26-34); Mean Corpuscular Volume 95.9 fl (80-100); Platelet Count Result 226 k/mm3 (150-375); Red Blood Count 4.19 M/mm3 (4.2-5.4); White Blood Count 11.3 K/mm3 (4.5-10.0)
[2025-06-12 05:31] LABS: Alanine Aminotransferase 13 U/L (6-35); Albumin Level 3.9 g/dL (3.5-5.1); Alkaline Phosphatase 51 U/L (38-126); Anion Gap 7 mmol/L (4-12); Aspartate Amino Transferase 18 U/L (14-36); Bilirubin,Total 0.4 mg/dL (0.2-1.3); Blood Urea Nitrogen 34 mg/dL (7-17); Calcium 10.1 mg/dL (8.4-10.2); Carbon Dioxide 28 mmol/L (22-30); Chloride 100 mmol/L (98-107); Estimated CRCL calculation 27 ml/min; Estimated Glomerular Filt Rate 36; Glucose 94 mg/dL (65-110); Potassium 3.6 mmol/L (3.4-5.0); Sodium 135 mmol/L (137-145); Total Protein 7.0 g/dL (6.3-8.2)
[2025-06-12] MEDS: LEVOTHYROXINE SODIUM 12.5 MCG TABLET PO (06:34)
[2025-06-12] MEDS: LEVOTHYROXINE SODIUM 25 MCG TABLET PO (06:34)
[2025-06-12] MEDS: LEVOTHYROXINE SODIUM 150 MCG TABLET PO (06:34)
[2025-06-12] MEDS: MIRABEGRON 25 MG ER TABLET PO (08:41)
[2025-06-12] MEDS: CHOLECALCIFEROL (VITAMIN D3) 125 MCG (5,000 UNITS) TABLET PO (08:41)
[2025-06-12] MEDS: LOSARTAN POTASSIUM 50 MG TABLET PO (08:41)
--- NOTE | 2025-06-12 11:56 | PCNFU ---
Nutrition Follow-Up Complete: Severe Protein Malnutrition as related to inadequate protein energy intake with increased protein energy needs in setting of chronic disease (chronic kidney disease) as evidenced by minimal oral intake for > 1-2 months: moderate muscle wasting (temporalis) and moderate subcutaneous fat loss (temporalis, clavicle). Goal: Meet estimated nutritional needs Patient will continue current goal. Pt current nutrition is Heart Healthy with Nutrition Ice Cream BID. Last recorded weight is 56.5 kg, no new weight to report. Bowel Motility: Last reported BM 06/09 Labs Reviewed:Cr 1.43, GFR 36, Na 135 Meds Noted:Synthroid, NovoLog Skin: WNL Additional Notes:Patient is tolerating > 75% of heart healthy diet. Diet supplements of Nutritional Ice Cream are providing an additional 300 kcal and 9 gm protein. Agree with diet orders. Will monitor weight, labs, skin, diet orders, meds every 5 days.
[2025-06-12] MEDS: INSULIN ASPART (*BKC) 100 UNITS/ML SUB-Q (12:01)
--- NOTE | 2025-06-12 12:21 | P.PNIM_ITS ---
Progress Note: A&P Assessment and Plan (1) Syncope: Code(s): R55 - Syncope and collapse Status: Acute Assessment and Plan: Negative trauma workup Medications were reviewed Evaluated for incidence of hypoglycemia Avoid any sedatives or anxiolytic Reviewed a CT head and CT neck Reviewed TSH and increased levothyroxine from 175-187.5 Repeat TSH in 4-6 weeks Ordered echocardiogram and carotid ultrasound Ordered orthostatic vitals Neuro check q.4 hours On telemetry to evaluate for any arrhythmias Will discharge with event monitor PT OT evaluation MRI:1. No evidence of acute ischemia. No intracranial bleed. Extensive chronic ischemic changes on the FLAIR sequence noted. 2. No intracranial space-occupying lesions, ventriculomegaly or midline shift. Carotid doppler:1. No evidence of hemodynamically significant atherosclerotic obstruction of common and internal carotid arteries in the neck. 2. Antegrade flow noted in the vertebral arteries on both sides Cervical Spine CT:1. No acute abnormalities of C-spine. Degenerative disc disease and facet arthropathy in the lower cervical spine ECHO: 1. Complete two-dimensional, color flow and Doppler transthoracic echocardiogram is performed. 2. Left ventricular chamber dimension is normal. 3. Left ventricular systolic function is normal, estimated at 65-70. 4. The left ventricular diastolic function is grade I diastolic dysfunction. 5. E/e' 12 is mildly elevated (2) Falls: Code(s): R29.6 - Repeated falls Status: Acute Assessment and Plan: Same as above (3) Chronic kidney disease, stage III (moderate): Qualifiers: Chronic kidney disease stage 3 subtype: stage 3b (GFR 30-44) Qualified Code(s): N18.32 - Chronic kidney disease, stage 3b Code(s): N18.30 - Chronic kidney disease, stage 3 unspecified Status: Acute Assessment and Plan: Avoid nephrotoxic drugs Trend BUN and creatinine Follow-up as outpatient (4) Urinary incontinence: Qualifiers: Urinary Incontinence type: mixed stress and urge incontinence Qualified Code(s): N39.46 - Mixed incontinence Code(s): R32 - Unspecified urinary incontinence Status: Acute Assessment and Plan: Continue Mirabegron (5) Hypothyroidism: Qualifiers: Hypothyroidism type: unspecified Qualified Code(s): E03.9 - Hypothyroidism, unspecified Code(s): E03.9 - Hypothyroidism, unspecified Status: Acute Assessment and Plan: Increased levothyroxine from 175-187.5 Repeat TSH in 4-6 weeks (6) Type 2 diabetes mellitus: Qualifiers: Diabetes mellitus complication status: with hyperglycemia Diabetes mellitus termite inspector insulin use: without termite inspector use Qualified Code(s): E11.65 - Type 2 diabetes mellitus with hyperglycemia Code(s): E11.9 - Type 2 diabetes mellitus without complications Status: Acute Assessment and Plan: Low-dose sliding scale Titrate as needed Plan Disposition: Patient will benefit from SNF Subjective Date/time seen: 06/12/25 12:21 Interval history: Evidence of orthostatic hypotension. Ordered Jarad hose compression. Patient is the has a high risk of fall. Recommend SNF. Review of Systems Review of Systems: A 10 system review of systems was completed on the patient and is negative except for what is stated in the HPI. Nursing and ancillary documentation was reviewed. Exam Narrative: GENERAL: Well-appearing, well-nourished, and in no acute distress. HEAD: Normocephalic, small laceration of the left eyebrow. EYES: PERRLA and EOMI. ENT: Nares clear, no rhinorrhea or epistaxis. Mucous membranes moist. NECK: Supple. CHEST: Clear to auscultation. No respiratory distress. HEART: Regular rate and rhythm. No murmur heard. Normal peripheral pulses. ABDOMEN: Soft, nontender, nondistended, normal active bowel sounds. EXTREMITIES: Normal range of motion. No edema. SKIN: Warm, dry, no rash. NEURO: No focal deficits. Alert and oriented x3. PSYCH: Normal mood and affect. Objective Data Vital Signs Vital Signs: Vital Signs - 24 hr 06/11/25 12:55 06/11/25 20:00 06/11/25 20:00 Temperature Pulse Rate 105 H Respiratory Rate Blood Pressure Pulse Oximetry Oxygen Delivery Room Air Room Air 06/11/25 21:39 06/11/25 22:03 06/11/25 22:07 Temperature 98.1 F Pulse Rate 73 79 91 Respiratory Rate 16 Blood Pressure 143/77 H 131/63 101/63 Pulse Oximetry 96 Oxygen Delivery 06/12/25 00:00 06/12/25 04:00 06/12/25 06:59 Temperature 97.7 F Pulse Rate 78 72 100 Respiratory Rate 16 Blood Pressure 132/81 Pulse Oximetry 94 Oxygen Delivery 06/12/25 08:00 06/12/25 08:00 06/12/25 08:00 Temperature Pulse Rate 78 Respiratory Rate Blood Pressure 141/64 H Pulse Oximetry Oxygen Delivery Room Air 06/12/25 08:39 06/12/25 09:27 06/12/25 09:32 Temperature Pulse Rate 78 Respiratory Rate Blood Pressure 153/81 H 90/58 L Pulse Oximetry Oxygen Delivery Room Air 06/12/25 09:32 Temperature Pulse Rate Respiratory Rate Blood Pressure 78/53 L Pulse Oximetry Oxygen Delivery Intake/Output Intake/Output: Intake & Output 06/09/25 06/10/25 06/11/25 06/12/25 23:59 23:59 23:59 23:59 Intake Total 1945 1180 590 Balance 1945 1180 590 Meds/Results Medications: Active Medications Generic Name Dose Route Start Last Admin Trade Name Freq PRN Reason Stop Dose Admin Acetaminophen 650 mg 06/10/25 00:12 Acetaminophen 325 Mg Tablet PO Q4H PRN Mild Pain (1-3) or Fever Dextrose 12.5 gm 06/10/25 15:58 Dextrose 50% 25 Gm/50 Ml Syringe IV PUSH PRN PRN Hypoglycemia Protocol Gabapentin 300 mg 06/10/25 21:00 06/11/25 20:54 Gabapentin 300 Mg Capsule PO 300 mg QHS [facility] Administration Glucagon 1 mg 06/10/25 15:58 Glucagon For Inj 1 Mg Vial IM PRN PRN Hypoglycemia Protocol Glucose 15 gm 06/10/25 15:58 Glucose Oral Gel 15 Gm Of Glucse In 37.5 Gm Tube PO PRN PRN Hypoglycemia Protocol Hydrochlorothiazide 12.5 mg 06/10/25 09:00 06/12/25 08:41 Hydrochlorothiazide 12.5 Mg Capsule PO 12.5 mg QAM [facility] Administration Dextrose 1,000 mls @ 100 mls/hr 06/10/25 15:58 Dextrose 5% 1,000 Ml IVPB PRN PRN Hypoglycemia Protocol Insulin Aspart 2 - 5 units 06/10/25 17:00 06/12/25 12:01 Insulin Aspart (*Bkc) 100 Units/Ml SUB-Q 4 units TIDWM [facility] Administration Protocol Insulin Aspart 1 - 2 units 06/10/25 21:00 06/11/25 20:54 Insulin Aspart (*Bkc) 100 Units/Ml SUB-Q Not Given HS [facility] Protocol Levothyroxine Sodium 150 mcg 06/10/25 06:30 06/12/25 06:34 Levothyroxine Sodium 150 Mcg Tablet PO 150 mcg DAILY@0630 [facility] Administration Levothyroxine Sodium 25 mcg 06/10/25 06:30 06/12/25 06:34 Levothyroxine Sodium 25 Mcg Tablet PO 25 mcg DAILY@0630 [facility] Administration Levothyroxine Sodium 12.5 mcg 06/11/25 06:30 06/12/25 06:34 Levothyroxine Sodium 12.5 Mcg Tablet PO 12.5 mcg DAILY@0630 [facility] Administration Losartan Potassium 50 mg 06/10/25 09:00 06/12/25 08:41 Losartan Potassium 50 Mg Tablet PO 50 mg QAM [facility] Administration Mirabegron 25 mg 06/10/25 09:00 06/12/25 08:41 Mirabegron 25 Mg Er Tablet PO 25 mg DAILY [facility] Administration Ondansetron HCl 4 mg 06/10/25 00:12 Ondansetron Inj 4 Mg/2 Ml Vial IV PUSH Q4H PRN Nausea Vitamin D 125 mcg 06/10/25 09:00 06/12/25 08:41 Cholecalciferol (Vitamin D3) 125 Mcg (5,000 Units) Tablet PO 125 mcg DAILY [facility] Administration Radiology Results: ITS Impressions Chest X-Ray 06/09/25 19:52 IMPRESSION: 1. No acute pulmonary findings. Atherosclerotic aorta. Head CT 06/09/25 19:57 IMPRESSION: 1. No acute intracranial lesions this noncontrast study. Stable chronic ischemic changes particularly in the left frontal region. Cervical Spine CT 06/09/25 19:59 IMPRESSION: 1. No acute abnormalities of C-spine. Degenerative disc disease and facet arthropathy in the lower cervical spine. Carotid Doppler Study 06/10/25 13:49 IMPRESSION: 1. No evidence of hemodynamically significant atherosclerotic obstruction of common and internal carotid arteries in the neck. 2. Antegrade flow noted in the vertebral arteries on both sides. Brain MRI 06/11/25 14:45 IMPRESSION: 1. No evidence of acute ischemia. No intracranial bleed. Extensive chronic is chemic changes on the FLAIR sequence noted. 2. No intracranial space-occupying lesions, ventriculomegaly or midline shift. Labs Labs: Laboratory Results - last 24 hr 06/11/25 06/11/25 06/12/25 16:51 21:41 04:53 WBC 11.3 H RBC 4.19 L Hgb 13.1 Hct 40.2 MCV 95.9 MCH 31.3 MCHC 32.6 RDW 14.6 H Plt Count 226 MPV 12.3 H Sodium 135 L Potassium 3.6 Chloride 100 Carbon Dioxide 28 Anion Gap 7 BUN 34 H Creatinine 1.43 H Estim Creat Clear Calc 27 Estimated GFR 36 L Glucose 94 POC Capillary Glucose 98 229 H Calcium 10.1 Total Bilirubin 0.4 AST 18 ALT 13 Alkaline Phosphatase 51 Total Protein 7.0 Albumin 3.9 06/12/25 06/12/25 07:34 11:39 WBC RBC Hgb Hct MCV MCH MCHC RDW Plt Count MPV Sodium Potassium Chloride Carbon Dioxide Anion Gap BUN Creatinine Estim Creat Clear Calc Estimated GFR Glucose POC Capillary Glucose 114 H 320 H Calcium Total Bilirubin AST ALT Alkaline Phosphatase Total Protein Albumin Hospitalist MIPS Advance Care Plan I have confirmed that the patient's Advanced Care Plan is present, code status is documented, or surrogate decision maker is listed in patient medical record.: Yes Medication Reconciliation I have utilized all available resources to obtain, update and review the patients current medications (includes all prescriptions, OTC, herbals, cannabis, and nutritional supplements).: Yes
--- NOTE | 2025-06-12 12:34 | WPDNEUROLOGY ---
Neurology EEG Report General Information Date of Study: 06/12/25 TEST Electroencephalogram DIAGNOSIS several spells of falls and possible loss of consciousness CONDITION OF RECORDING bedside recording EEG NUMBER [id number] CLINICAL HISTORY The patient is 74-year-old with history of multiple falls possible loss of consciousness EEG DESCRIPTION The patient appears to be drowsy at the beginning of the recording in diffuse theta activity was seen in posterior head region. When alerted but she done rhythm reaches up to 8 hertz in posterior head region or in alpha range. There is a mild anteroposterior gradient. Throughout the drowsiness and stage I and 2 sleep diffuse background slowing and frontal intermittent rhythmic delta activity was noted however focal sharp wave activity and slowing were noted over the left temporal area on several occasions. Rare sharp transients were also seen over the right temporal area. Hyperventilation or photic stimulation were not performed. IMPRESSION This is a mild abnormal EEG due to presence of focal slow sharp wave activity and slowing noted over the left temporal area. In addition rare sharp transients also noted was a right temporal area. Focal sharp wave activities considered nonspecific focal interictal abnormality. Focal slowing may raise possibility of underlying structural lesion. Clinical and radiographic correlation are recommended.
--- NOTE | 2025-06-12 14:39 | PCOTNOTE ---
Attempted to see Patient at this time. Patient states she is having a bad day, increased dizziness with movement and that makes her nauseated, Patient declined to participate, ;not today Patient requested to try back tomorrow.
--- NOTE | 2025-06-12 17:35 | P.PNNEUR_ITS ---
Progress Note: A&P Assessment and Plan (1) Orthostatic hypotension: Code(s): I95.1 - Orthostatic hypotension Status: Acute Assessment and Plan: her blood pressure being this morning was supine 141/64 and standing 78/53. I discussed this with the hospitalist Dr. SIFUENTES. We can start her on midodrine 2.5 mg 3 times a day and watch for any supine hypertension. We can also add pyridostigmine 30 mg 3 times a day. I will suggest to hold off gabapentin since that can also cause she although she is on a very small dose at bedtime. Which will continue to observe her blood pressure in supine and standing posit ion to monitor her progress. (2) Falls: Code(s): R29.6 - Repeated falls Status: Acute Assessment and Plan: She is most likely falling due to postural hypotension since the spells occur only when she starts to walk. It is not clear that she is having any seizures. EEG was performed and that shows focal slowing and sharp wave activity over left temporal area high over this may consider coincidental finding in this age group. MRI of the brain was performed shows chronic white matter changes. Carotid Doppler study also was performed which did not show any significant abnormalities. (3) Chronic kidney disease, stage III (moderate): Qualifiers: Chronic kidney disease stage 3 subtype: stage 3b (GFR 30-44) Qualified Code(s): N18.32 - Chronic kidney disease, stage 3b Code(s): N18.30 - Chronic kidney disease, stage 3 unspecified Status: Acute (4) Type 2 diabetes mellitus: Qualifiers: Diabetes mellitus vermin exterminator insulin use: without vermin exterminator use Diabetes mellitus complication status: with hyperglycemia Qualified Code(s): E11.65 - Type 2 diabetes mellitus with hyperglycemia Code(s): E11.9 - Type 2 diabetes mellitus without complications Status: Acute Subjective Date/time seen: 06/12/25 17:35 Interval history: The patient is 74-year-old with history of multiple falls. She has think that she may be passing out for short. When she falls but she feels lightheaded when she stands up. She has history of chronic kidney disease with a creatinine of 1.41. MRI of the brain was performed which did not show any significant abnormality. Carotid Doppler study also did not show any significant findings. 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 The patient has history of smoking and also previous history of breast cancer. It was noted that her blood pressure today this morning supine was 141/64 and standing blood pressure was 78/53. See also history of urge incontinence. Patient is also history of diabetes mellitus and chronic kidney disease. Review of Systems Review of Systems: All systems reviewed & are unremarkable except as noted in HPI and below Exam Const: General: cooperative, healthy appearing and comfortable HENMT: Head: atraumatic Mouth: Yes oropharynx normal Eyes: Alignment and Position: alignment normal and position normal EOM: EOMs intact bilaterally Neck: Neck: normal visual inspection and supple Resp: Effort & Inspection: normal respiratory effort Cardio: Heart sounds: S1 normal heart sound present and S2 normal heart sound present Skin: General skin exam: normal color Neuro: Cranial nerves: Yes CN's II-XII intact bilaterally, Yes facial symmetry and Yes Midline tongue present Cognition (Neuro): normal cognition Speech: normal speech Coordination: [id number] test normal and Normal rapid alternating movements of the distal upper extremity present (Neuro) Extrem: General: normal to inspection Psych: Mental Status: mental status grossly normal Speech and movement: Normal speech and movement present Affect: normal affect Thought content: Yes Normal thought content present Objective Data Vital Signs Vital Signs: Vital Signs - 24 hr 06/11/25 20:00 06/11/25 20:00 06/11/25 21:39 Temperature 98.1 F Pulse Rate 105 H 73 Respiratory Rate 16 Blood Pressure 143/77 H Pulse Oximetry 96 Oxygen Delivery Room Air 06/11/25 22:03 06/11/25 22:07 06/12/25 00:00 Temperature Pulse Rate 79 91 78 Respiratory Rate Blood Pressure 131/63 101/63 Pulse Oximetry Oxygen Delivery 06/12/25 04:00 06/12/25 06:59 06/12/25 08:00 Temperature 97.7 F Pulse Rate 72 100 Respiratory Rate 16 Blood Pressure 132/81 141/64 H Pulse Oximetry 94 Oxygen Delivery 06/12/25 08:00 06/12/25 08:00 06/12/25 08:39 Temperature Pulse Rate 78 78 Respiratory Rate Blood Pressure 153/81 H Pulse Oximetry Oxygen Delivery Room Air 06/12/25 09:27 06/12/25 09:32 06/12/25 09:32 Temperature Pulse Rate Respiratory Rate Blood Pressure 90/58 L 78/53 L Pulse Oximetry Oxygen Delivery Room Air 06/12/25 12:00 06/12/25 14:00 06/12/25 16:00 Temperature 98.3 F Pulse Rate 88 86 86 Respiratory Rate 14 Blood Pressure 120/73 Pulse Oximetry 98 Oxygen Delivery Intake/Output Intake/Output: Intake & Output 06/09/25 06/10/25 06/11/25 06/12/25 23:59 23:59 23:59 23:59 Intake Total 1945 1180 1130 Balance 1945 1180 1130 Meds/Results Medications: Active Medications Generic Name Dose Route Start Last Admin Trade Name Freq PRN Reason Stop Dose Admin Acetaminophen 650 mg 06/10/25 00:12 Acetaminophen 325 Mg Tablet PO Q4H PRN Mild Pain (1-3) or Fever Dextrose 12.5 gm 06/10/25 15:58 Dextrose 50% 25 Gm/50 Ml Syringe IV PUSH PRN PRN Hypoglycemia Protocol Gabapentin 300 mg 06/10/25 21:00 06/11/25 20:54 Gabapentin 300 Mg Capsule PO 300 mg QHS [facility] Administration Glucagon 1 mg 06/10/25 15:58 Glucagon For Inj 1 Mg Vial IM PRN PRN Hypoglycemia Protocol Glucose 15 gm 06/10/25 15:58 Glucose Oral Gel 15 Gm Of Glucse In 37.5 Gm Tube PO PRN PRN Hypoglycemia Protocol Hydrochlorothiazide 12.5 mg 06/10/25 09:00 06/12/25 08:41 Hydrochlorothiazide 12.5 Mg Capsule PO 12.5 mg QAM [facility] Administration Dextrose 1,000 mls @ 100 mls/hr 06/10/25 15:58 Dextrose 5% 1,000 Ml IVPB PRN PRN Hypoglycemia Protocol Insulin Aspart 2 - 5 units 06/10/25 17:00 06/12/25 16:36 Insulin Aspart (*Bkc) 100 Units/Ml SUB-Q Not Given TIDWM [facility] Protocol Insulin Aspart 1 - 2 units 06/10/25 21:00 06/11/25 20:54 Insulin Aspart (*Bkc) 100 Units/Ml SUB-Q Not Given HS [facility] Protocol Levothyroxine Sodium 150 mcg 06/10/25 06:30 06/12/25 06:34 Levothyroxine Sodium 150 Mcg Tablet PO 150 mcg DAILY@0630 [facility] Administration Levothyroxine Sodium 25 mcg 06/10/25 06:30 06/12/25 06:34 Levothyroxine Sodium 25 Mcg Tablet PO 25 mcg DAILY@0630 [facility] Administration Levothyroxine Sodium 12.5 mcg 06/11/25 06:30 06/12/25 06:34 Levothyroxine Sodium 12.5 Mcg Tablet PO 12.5 mcg DAILY@0630 [facility] Administration Losartan Potassium 50 mg 06/10/25 09:00 06/12/25 08:41 Losartan Potassium 50 Mg Tablet PO 50 mg QAM [facility] Administration Mirabegron 25 mg 06/10/25 09:00 06/12/25 08:41 Mirabegron 25 Mg Er Tablet PO 25 mg DAILY [facility] Administration Ondansetron HCl 4 mg 06/10/25 00:12 Ondansetron Inj 4 Mg/2 Ml Vial IV PUSH Q4H PRN Nausea Vitamin D 125 mcg 06/10/25 09:00 06/12/25 08:41 Cholecalciferol (Vitamin D3) 125 Mcg (5,000 Units) Tablet PO 125 mcg DAILY [facility] Administration Radiology Results: ITS Impressions Chest X-Ray 06/09/25 19:52 IMPRESSION: 1. No acute pulmonary findings. Atherosclerotic aorta. Head CT 06/09/25 19:57 IMPRESSION: 1. No acute intracranial lesions this noncontrast study. Stable chronic ischemic changes particularly in the left frontal region. Cervical Spine CT 06/09/25 19:59 IMPRESSION: 1. No acute abnormalities of C-spine. Degenerative disc disease and facet arthropathy in the lower cervical spine. Carotid Doppler Study 06/10/25 13:49 IMPRESSION: 1. No evidence of hemodynamically significant atherosclerotic obstruction of common and internal carotid arteries in the neck. 2. Antegrade flow noted in the vertebral arteries on both sides. Brain MRI 06/11/25 14:45 IMPRESSION: 1. No evidence of acute ischemia. No intracranial bleed. Extensive chronic ischemic changes on the FLAIR sequence noted. 2. No intracranial space-occupying lesions, ventriculomegaly or midline shift. Labs Labs: Laboratory Results - last 24 hr 06/11/25 06/12/25 06/12/25 21:41 04:53 07:34 WBC 11.3 H RBC 4.19 L Hgb 13.1 Hct 40.2 MCV 95.9 MCH 31.3 MCHC 32.6 RDW 14.6 H Plt Count 226 MPV 12.3 H Sodium 135 L Potassium 3.6 Chloride 100 Carbon Dioxide 28 Anion Gap 7 BUN 34 H Creatinine 1.43 H Estim Creat Clear Calc 27 Estimated GFR 36 L Glucose 94 POC Capillary Glucose 229 H 114 H Calcium 10.1 Total Bilirubin 0.4 AST 18 ALT 13 Alkaline Phosphatase 51 Total Protein 7.0 Albumin 3.9 06/12/25 06/12/25 11:39 16:16 WBC RBC Hgb Hct MCV MCH MCHC RDW Plt Count MPV Sodium Potassium Chloride Carbon Dioxide Anion Gap BUN Creatinine Estim Creat Clear Calc Estimated GFR Glucose POC Capillary Glucose 320 H 141 H Calcium Total Bilirubin AST ALT Alkaline Phosphatase Total Protein Albumin
[2025-06-13] VITALS (15 sets, daily range): BP systolic 85–152; BP diastolic 62–91; PULSE 61–109; RESP 16–20; TEMP 36.1–36.8; O2SAT 82–100
[2025-06-13 05:31] LABS: Hematocrit 42.1 % (37.0-47.0); Hemoglobin 13.8 g/dL (12.0-15.0); Mean Corpuscular HGB Conc 32.8 g/dl (32-36); Mean Corpuscular Hemoglobin 30.9 pg (26-34); Mean Corpuscular Volume 94.4 fl (80-100); Platelet Count Result 231 k/mm3 (150-375); Red Blood Count 4.46 M/mm3 (4.2-5.4); White Blood Count 9.3 K/mm3 (4.5-10.0)
[2025-06-13 05:53] LABS: Anion Gap 9 mmol/L (4-12); Blood Urea Nitrogen 31 mg/dL (7-17); Calcium 10.3 mg/dL (8.4-10.2); Carbon Dioxide 25 mmol/L (22-30); Chloride 100 mmol/L (98-107); Estimated CRCL calculation 29 ml/min; Estimated Glomerular Filt Rate 38; Glucose 113 mg/dL (65-110); Potassium 3.7 mmol/L (3.4-5.0); Sodium 134 mmol/L (137-145)
[2025-06-13] MEDS: LEVOTHYROXINE SODIUM 25 MCG TABLET PO (06:06)
[2025-06-13] MEDS: LEVOTHYROXINE SODIUM 150 MCG TABLET PO (06:06)
[2025-06-13] MEDS: LEVOTHYROXINE SODIUM 12.5 MCG TABLET PO (06:06)
[2025-06-13] MEDS: MIDODRINE HCL 2.5 MG TABLET PO ×3 (08:58→18:30)
[2025-06-13] MEDS: LOSARTAN POTASSIUM 50 MG TABLET PO (08:58)
[2025-06-13] MEDS: pyRIDostigmine bromide 30 MG TABLET PO ×3 (08:59→18:30)
[2025-06-13] MEDS: MIRABEGRON 25 MG ER TABLET PO (08:59)
[2025-06-13] MEDS: CHOLECALCIFEROL (VITAMIN D3) 125 MCG (5,000 UNITS) TABLET PO (08:59)
--- NOTE | 2025-06-13 12:33 | P.PNIM_ITS ---
Progress Note: A&P Assessment and Plan (1) Syncope: Code(s): R55 - Syncope and collapse Status: Acute Assessment and Plan: Negative trauma workup Medications were reviewed Evaluated for incidence of hypoglycemia Avoid any sedatives or anxiolytic Reviewed a CT head and CT neck Reviewed TSH and increased levothyroxine from 175-187.5 Repeat TSH in 4-6 weeks Ordered echocardiogram and carotid ultrasound Ordered orthostatic vitals Neuro check q.4 hours On telemetry to evaluate for any arrhythmias Will discharge with event monitor PT OT evaluation MRI:1. No evidence of acute ischemia. No intracranial bleed. Extensive chronic ischemic changes on the FLAIR sequence noted. 2. No intracranial space-occupying lesions, ventriculomegaly or midline shift. Carotid doppler:1. No evidence of hemodynamically significant atherosclerotic obstruction of common and internal carotid arteries in the neck. 2. Antegrade flow noted in the vertebral arteries on both sides Cervical Spine CT:1. No acute abnormalities of C-spine. Degenerative disc disease and facet arthropathy in the lower cervical spine ECHO: 1. Complete two-dimensional, color flow and Doppler transthoracic echocardiogram is performed. 2. Left ventricular chamber dimension is normal. 3. Left ventricular systolic function is normal, estimated at 65-70. 4. The left ventricular diastolic function is grade I diastolic dysfunction. 5. E/e' 12 is mildly elevated (2) Falls: Code(s): R29.6 - Repeated falls Status: Acute Assessment and Plan: Same as above (3) Chronic kidney disease, stage III (moderate): Qualifiers: Chronic kidney disease stage 3 subtype: stage 3b (GFR 30-44) Qualified Code(s): N18.32 - Chronic kidney disease, stage 3b Code(s): N18.30 - Chronic kidney disease, stage 3 unspecified Status: Acute Assessment and Plan: Avoid nephrotoxic drugs Trend BUN and creatinine Follow-up as outpatient (4) Urinary incontinence: Qualifiers: Urinary Incontinence type: mixed stress and urge incontinence Qualified Code(s): N39.46 - Mixed incontinence Code(s): R32 - Unspecified urinary incontinence Status: Acute Assessment and Plan: Continue Mirabegron (5) Hypothyroidism: Qualifiers: Hypothyroidism type: unspecified Qualified Code(s): E03.9 - Hypothyroidism, unspecified Code(s): E03.9 - Hypothyroidism, unspecified Status: Acute Assessment and Plan: Increased levothyroxine from 175-187.5 Repeat TSH in 4-6 weeks (6) Type 2 diabetes mellitus: Qualifiers: Diabetes mellitus chcf insulin use: without joint terminal attack controller use Diabetes mellitus complication status: with hyperglycemia Qualified Code(s): E11.65 - Type 2 diabetes mellitus with hyperglycemia Code(s): E11.9 - Type 2 diabetes mellitus without complications Status: Acute Assessment and Plan: Low-dose sliding scale Titrate as needed (7) Orthostatic hypotension: Code(s): I95.1 - Orthostatic hypotension Status: Acute Assessment and Plan: Maintain adequate hydration EVONNE hose Started on midodrine 2.5 mg p.o. t.i.d. and pyridostigmine 30 mg p.o. t.i.d. Caution when transitioning from sitting or lying to standing Can use abdominal binder if still having symptoms with the above interventions Advised to participate in exercise, particular balance, strengthening, and gait training Adaptation or modification of living environment to prevent fall Gradually change position, especially getting out of bed slowly by sitting first and and arising slowly Plan Disposition: Patient will benefit from SNF Subjective Date/time seen: 06/13/25 12:33 Interval history: Patient has evidence of orthostatic hypotension. Neurology started midodrine 2.5 mg and pyridostigmine 30 mg p.o. t.i.d.. Will continue to monitor orthostatic improvement. Review of Systems Review of Systems: A 10 system review of systems was completed on the patient and is negative except for what is stated in the HPI. Nursing and ancillary documentation was reviewed. Exam Narrative: GENERAL: Well-appearing, well-nourished, and in no acute distress. HEAD: Normocephalic, small laceration of the left eyebrow. EYES: PERRLA and EOMI. ENT: Nares clear, no rhinorrhea or epistaxis. Mucous membranes moist. NECK: Supple. CHEST: Clear to auscultation. No respiratory distress. HEART: Regular rate and rhythm. No murmur heard. Normal peripheral pulses. ABDOMEN: Soft, nontender, nondistended, normal active bowel sounds. EXTREMITIES: Normal range of motion. No edema. SKIN: Warm, dry, no rash. NEURO: No focal deficits. Alert and oriented x3. PSYCH: Normal mood and affect. Objective Data Vital Signs Vital Signs: Vital Signs - 24 hr 06/12/25 14:00 06/12/25 16:00 06/12/25 20:00 Temperature 98.3 F Pulse Rate 86 86 Respiratory Rate 14 Blood Pressure 120/73 152/83 H Pulse Oximetry 98 Oxygen Delivery 06/12/25 20:00 06/12/25 20:00 06/12/25 20:26 Temperature 98 F Pulse Rate 80 82 Respiratory Rate 20 Blood Pressure 152/83 H Pulse Oximetry 96 Oxygen Delivery Room Air 06/12/25 20:27 06/12/25 20:28 06/13/25 00:00 Temperature Pulse Rate 109 H Respiratory Rate Blood Pressure 133/75 92/71 L Pulse Oximetry Oxygen Delivery 06/13/25 04:00 06/13/25 04:34 06/13/25 04:54 Temperature 97.0 F L 97.6 F Pulse Rate 83 61 83 Respiratory Rate 20 20 Blood Pressure 122/64 152/91 H Pulse Oximetry 100 96 Oxygen Delivery 06/13/25 08:56 06/13/25 09:51 06/13/25 09:55 Temperature Pulse Rate 86 93 Respiratory Rate 18 Blood Pressure 135/79 122/65 92/62 L Pulse Oximetry 100 96 Oxygen Delivery Intake/Output Intake/Output: Intake & Output 06/10/25 06/11/25 06/12/25 06/13/25 23:59 23:59 23:59 23:59 Intake Total 1945 1180 1370 540 Output Total 800 Balance 1945 1180 1370 -260 Meds/Results Medications: Active Medications Generic Name Dose Route Start Last Admin Trade Name Freq PRN Reason Stop Dose Admin Acetaminophen 650 mg 06/10/25 00:12 Acetaminophen 325 Mg Tablet PO Q4H PRN Mild Pain (1-3) or Fever Dextrose 12.5 gm 06/10/25 15:58 Dextrose 50% 25 Gm/50 Ml Syringe IV PUSH PRN PRN Hypoglycemia Protocol Glucagon 1 mg 06/10/25 15:58 Glucagon For Inj 1 Mg Vial IM PRN PRN Hypoglycemia Protocol Glucose 15 gm 06/10/25 15:58 Glucose Oral Gel 15 Gm Of Glucse In 37.5 Gm Tube PO PRN PRN Hypoglycemia Protocol Hydrochlorothiazide 12.5 mg 06/10/25 09:00 06/13/25 08:58 Hydrochlorothiazide 12.5 Mg Capsule PO 12.5 mg QAM [facility] Administration Dextrose 1,000 mls @ 100 mls/hr 06/10/25 15:58 Dextrose 5% 1,000 Ml IVPB PRN PRN Hypoglycemia Protocol Insulin Aspart 2 - 5 units 06/10/25 17:00 06/13/25 08:53 Insulin Aspart (*Bkc) 100 Units/Ml SUB-Q Not Given TIDWM [facility] Protocol Insulin Aspart 1 - 2 units 06/10/25 21:00 06/12/25 20:39 Insulin Aspart (*Bkc) 100 Units/Ml SUB-Q Not Given HS [facility] Protocol Levothyroxine Sodium 150 mcg 06/10/25 06:30 06/13/25 06:06 Levothyroxine Sodium 150 Mcg Tablet PO 150 mcg DAILY@0630 [facility] Administration Levothyroxine Sodium 25 mcg 06/10/25 06:30 06/13/25 06:06 Levothyroxine Sodium 25 Mcg Tablet PO 25 mcg DAILY@0630 [facility] Administration Levothyroxine Sodium 12.5 mcg 06/11/25 06:30 06/13/25 06:06 Levothyroxine Sodium 12.5 Mcg Tablet PO 12.5 mcg DAILY@0630 [facility] Administration Losartan Potassium 50 mg 06/10/25 09:00 06/13/25 08:58 Losartan Potassium 50 Mg Tablet PO 50 mg QAM [facility] Administration Midodrine 2.5 mg 06/13/25 09:00 06/13/25 08:58 Midodrine Hcl 2.5 Mg Tablet PO 2.5 mg TID [facility] Administration Mirabegron 25 mg 06/10/25 09:00 06/13/25 08:59 Mirabegron 25 Mg Er Tablet PO 25 mg DAILY [facility] Administration Ondansetron HCl 4 mg 06/10/25 00:12 Ondansetron Inj 4 Mg/2 Ml Vial IV PUSH Q4H PRN Nausea Pyridostigmine [place] 30 mg 06/13/25 09:00 06/13/25 08:59 Pyridostigmine [place] 30 Mg Tablet PO 30 mg TID [facility] Administration Vitamin D 125 mcg 06/10/25 09:00 06/13/25 08:59 Cholecalciferol (Vitamin D3) 125 Mcg (5,000 Units) Tablet PO 125 mcg DAILY [facility] Administration Radiology Results: ITS Impressions Chest X-Ray 06/09/25 19:52 IMPRESSION: 1. No acute pulmonary findings. Atherosclerotic aorta. Head CT 06/09/25 19:57 IMPRESSION: 1. No acute intracranial lesions this noncontrast study. Stable chronic ischemic changes particularly in the left frontal region. Cervical Spine CT 06/09/25 19:59 IMPRESSION: 1. No acute abnormalities of C-spine. Degenerative disc disease and facet arthropathy in the lower cervical spine. Carotid Doppler Study 06/10/25 13:49 IMPRESSION: 1. No evidence of hemodynamically significant atherosclerotic obstruction of common and internal carotid arteries in the neck. 2. Antegrade flow noted in the vertebral arteries on both sides. Brain MRI 06/11/25 14:45 IMPRESSION: 1. No evidence of acute ischemia. No intracranial bleed. Extensive chronic ischemic changes on the FLAIR sequence noted. 2. No intracranial space-occupying lesions, ventriculomegaly or midline shift. Labs Labs: Laboratory Results - last 24 hr 06/12/25 06/12/25 06/13/25 16:16 20:24 05:17 WBC 9.3 RBC 4.46 Hgb 13.8 Hct 42.1 MCV 94.4 MCH 30.9 MCHC 32.8 RDW 14.3 Plt Count 231 MPV 12.0 H Sodium 134 L Potassium 3.7 Chloride 100 Carbon Dioxide 25 Anion Gap 9 BUN 31 H Creatinine 1.35 H Estim Creat Clear Calc 29 Estimated GFR 38 L Glucose 113 H POC Capillary Glucose 141 H 166 H Calcium 10.3 H 06/13/25 06/13/25 07:43 12:16 WBC RBC Hgb Hct MCV MCH MCHC RDW Plt Count MPV Sodium Potassium Chloride Carbon Dioxide Anion Gap BUN Creatinine Estim Creat Clear Calc Estimated GFR Glucose POC Capillary Glucose 141 H 178 H Calcium Hospitalist MIPS Advance Care Plan I have confirmed that the patient's Advanced Care Plan is present, code status is documented, or surrogate decision maker is listed in patient medical record.: Yes Medication Reconciliation I have utilized all available resources to obtain, update and review the patients current medications (includes all prescriptions, OTC, herbals, cannabis, and nutritional supplements).: Yes
[2025-06-14] VITALS (15 sets, daily range): BP systolic 79–148; BP diastolic 51–98; PULSE 76–110; RESP 16–18; TEMP 36.1–36.6; O2SAT 92–98
[2025-06-14 05:00] LABS: Hematocrit 40.0 % (37.0-47.0); Hemoglobin 13.4 g/dL (12.0-15.0); Mean Corpuscular HGB Conc 33.5 g/dl (32-36); Mean Corpuscular Hemoglobin 31.0 pg (26-34); Mean Corpuscular Volume 92.6 fl (80-100); Platelet Count Result 238 k/mm3 (150-375); Red Blood Count 4.32 M/mm3 (4.2-5.4); White Blood Count 8.6 K/mm3 (4.5-10.0)
[2025-06-14] MEDS: LEVOTHYROXINE SODIUM 12.5 MCG TABLET PO (05:12)
[2025-06-14] MEDS: LEVOTHYROXINE SODIUM 25 MCG TABLET PO (05:12)
[2025-06-14] MEDS: LEVOTHYROXINE SODIUM 150 MCG TABLET PO (05:13)
[2025-06-14 05:21] LABS: Alanine Aminotransferase 19 U/L (6-35); Albumin Level 4.0 g/dL (3.5-5.1); Alkaline Phosphatase 61 U/L (38-126); Anion Gap 8 mmol/L (4-12); Aspartate Amino Transferase 26 U/L (14-36); Bilirubin,Total 0.6 mg/dL (0.2-1.3); Blood Urea Nitrogen 31 mg/dL (7-17); Calcium 9.8 mg/dL (8.4-10.2); Carbon Dioxide 28 mmol/L (22-30); Chloride 99 mmol/L (98-107); Estimated CRCL calculation 27 ml/min; Estimated Glomerular Filt Rate 36; Glucose 114 mg/dL (65-110); Potassium 3.3 mmol/L (3.4-5.0); Sodium 135 mmol/L (137-145); Total Protein 7.5 g/dL (6.3-8.2)
[2025-06-14] MEDS: CHOLECALCIFEROL (VITAMIN D3) 125 MCG (5,000 UNITS) TABLET PO (08:37)
[2025-06-14] MEDS: MIDODRINE HCL 2.5 MG TABLET PO ×2 (08:37→12:40)
[2025-06-14] MEDS: LOSARTAN POTASSIUM 50 MG TABLET PO (08:38)
[2025-06-14] MEDS: MIRABEGRON 25 MG ER TABLET PO (08:38)
[2025-06-14] MEDS: pyRIDostigmine bromide 30 MG TABLET PO ×2 (08:38→12:40)
--- NOTE | 2025-06-14 08:57 | P.PNIM_ITS ---
Progress Note: A&P Assessment and Plan (1) Syncope: Code(s): R55 - Syncope and collapse Status: Acute Assessment and Plan: Negative trauma workup Medications were reviewed Evaluated for incidence of hypoglycemia Avoid any sedatives or anxiolytic Reviewed a CT head and CT neck Reviewed TSH and increased levothyroxine from 175-187.5 Repeat TSH in 4-6 weeks Ordered echocardiogram and carotid ultrasound Ordered orthostatic vitals Neuro check q.4 hours On telemetry to evaluate for any arrhythmias Will discharge with event monitor PT OT evaluation MRI:1. No evidence of acute ischemia. No intracranial bleed. Extensive chronic ischemic changes on the FLAIR sequence noted. 2. No intracranial space-occupying lesions, ventriculomegaly or midline shift. Carotid doppler:1. No evidence of hemodynamically significant atherosclerotic obstruction of common and internal carotid arteries in the neck. 2. Antegrade flow noted in the vertebral arteries on both sides Cervical Spine CT:1. No acute abnormalities of C-spine. Degenerative disc disease and facet arthropathy in the lower cervical spine ECHO: 1. Complete two-dimensional, color flow and Doppler transthoracic echocardiogram is performed. 2. Left ventricular chamber dimension is normal. 3. Left ventricular systolic function is normal, estimated at 65-70. 4. The left ventricular diastolic function is grade I diastolic dysfunction. 5. E/e' 12 is mildly elevated (2) Falls: Code(s): R29.6 - Repeated falls Status: Acute Assessment and Plan: Same as above (3) Chronic kidney disease, stage III (moderate): Qualifiers: Chronic kidney disease stage 3 subtype: stage 3b (GFR 30-44) Qualified Code(s): N18.32 - Chronic kidney disease, stage 3b Code(s): N18.30 - Chronic kidney disease, stage 3 unspecified Status: Acute Assessment and Plan: Avoid nephrotoxic drugs Trend BUN and creatinine Follow-up as outpatient (4) Urinary incontinence: Qualifiers: Urinary Incontinence type: mixed stress and urge incontinence Qualified Code(s): N39.46 - Mixed incontinence Code(s): R32 - Unspecified urinary incontinence Status: Acute Assessment and Plan: Continue Mirabegron (5) Hypothyroidism: Qualifiers: Hypothyroidism type: unspecified Qualified Code(s): E03.9 - Hypothyroidism, unspecified Code(s): E03.9 - Hypothyroidism, unspecified Status: Acute Assessment and Plan: Increased levothyroxine from 175-187.5 Repeat TSH in 4-6 weeks (6) Type 2 diabetes mellitus: Qualifiers: Diabetes mellitus complication status: with hyperglycemia Diabetes mellitus termite control technician insulin use: without termite control technician use Qualified Code(s): E11.65 - Type 2 diabetes mellitus with hyperglycemia Code(s): E11.9 - Type 2 diabetes mellitus without complications Status: Acute Assessment and Plan: Low-dose sliding scale Titrate as needed (7) Orthostatic hypotension: Code(s): I95.1 - Orthostatic hypotension Status: Acute Assessment and Plan: Maintain adequate hydration EVONNE hose Started on midodrine 2.5 mg p.o. t.i.d. and pyridostigmine 30 mg p.o. t.i.d. Caution when transitioning from sitting or lying to standing Can use abdominal binder if still having symptoms with the above interventions Advised to participate in exercise, particular balance, strengthening, and gait training Adaptation or modification of living environment to prevent fall Gradually change position, especially getting out of bed slowly by sitting first and and arising slowly will also stop hctz Plan Disposition: Patient will benefit from SNF Subjective Date/time seen: 06/14/25 08:57 Interval history: Orthostatic still present. Chart reviewed. Will stop hydrochlorothiazide. Not much talkative. Discussed the nursing staff. Review of Systems Review of Systems: All systems reviewed & are unremarkable except as noted in HPI and below Exam Narrative: GENERAL: Chronically ill-looking, and in no acute distress. HEAD: Normocephalic, small laceration of the left eyebrow with suture in place EYES: PERRLA and EOMI. ENT: Nares clear, no rhinorrhea or epistaxis. Mucous membranes moist. NECK: Supple. CHEST: Clear to auscultation. No respiratory distress. HEART: Regular rate and rhythm. No murmur heard. Normal peripheral pulses. ABDOMEN: Soft, nontender, nondistended, normal active bowel sounds. EXTREMITIES: Normal range of motion. No edema. SKIN: Warm, dry, no rash. NEURO: No focal deficits. Seems a bit confused. Alert and awake. Moving all extremities. PSYCH: Flat affect Objective Data Vital Signs Vital Signs: Vital Signs - 24 hr 06/13/25 09:51 06/13/25 09:55 06/13/25 12:00 Temperature Pulse Rate 86 93 79 Respiratory Rate 18 Blood Pressure 122/65 92/62 L Pulse Oximetry 100 96 06/13/25 14:41 06/13/25 16:00 06/13/25 20:00 Temperature 97.2 F L 98.2 F Pulse Rate 102 H 75 73 Respiratory Rate 16 20 Blood Pressure 140/87 147/86 H Pulse Oximetry 96 95 06/13/25 20:04 06/13/25 20:06 06/13/25 20:10 Temperature 98.2 F 98.2 F 98.2 F Pulse Rate 77 69 73 Respiratory Rate 20 20 20 Blood Pressure 110/80 85/63 L 147/86 H Pulse Oximetry 96 82 L 95 06/14/25 00:00 06/14/25 04:00 06/14/25 04:54 Temperature 97.0 F L Pulse Rate 82 99 Respiratory Rate 18 Blood Pressure 148/98 H Pulse Oximetry 95 Intake/Output Intake/Output: Intake & Output 06/11/25 06/12/25 06/13/25 06/14/25 23:59 23:59 23:59 23:59 Intake Total 1180 1370 1270 120 Output Total 800 Balance 1180 1370 470 120 Meds/Results Medications: Active Medications Generic Name Dose Route Start Last Admin Trade Name Freq PRN Reason Stop Dose Admin Acetaminophen 650 mg 06/10/25 00:12 Acetaminophen 325 Mg Tablet PO Q4H PRN Mild Pain (1-3) or Fever Dextrose 12.5 gm 06/10/25 15:58 Dextrose 50% 25 Gm/50 Ml Syringe IV PUSH PRN PRN Hypoglycemia Protocol Glucagon 1 mg 06/10/25 15:58 Glucagon For Inj 1 Mg Vial IM PRN PRN Hypoglycemia Protocol Glucose 15 gm 06/10/25 15:58 Glucose Oral Gel 15 Gm Of Glucse In 37.5 Gm Tube PO PRN PRN Hypoglycemia Protocol Hydrochlorothiazide 12.5 mg 06/10/25 09:00 06/14/25 08:37 Hydrochlorothiazide 12.5 Mg Capsule PO 12.5 mg QAM LAURENCE Administration Dextrose 1,000 mls @ 100 mls/hr 06/10/25 15:58 Dextrose 5% 1,000 Ml IVPB PRN PRN Hypoglycemia Protocol Insulin Aspart 2 - 5 units 06/10/25 17:00 06/14/25 08:36 Insulin Aspart (*Bkc) 100 Units/Ml SUB-Q Not Given TIDWM [facility] Protocol Insulin Aspart 1 - 2 units 06/10/25 21:00 06/13/25 22:11 Insulin Aspart (*Bkc) 100 Units/Ml SUB-Q Not Given HS [facility] Protocol Levothyroxine Sodium 150 mcg 06/10/25 06:30 06/14/25 05:13 Levothyroxine Sodium 150 Mcg Tablet PO 150 mcg DAILY@0630 [facility]ENCE Administration Levothyroxine Sodium 25 mcg 06/10/25 06:30 06/14/25 05:12 Levothyroxine Sodium 25 Mcg Tablet PO 25 mcg DAILY@0630 [facility] Administration Levothyroxine Sodium 12.5 mcg 06/11/25 06:30 06/14/25 05:12 Levothyroxine Sodium 12.5 Mcg Tablet PO 12.5 mcg DAILY@0630 [facility]URENCE Administration Losartan Potassium 50 mg 06/10/25 09:00 06/14/25 08:38 Losartan Potassium 50 Mg Tablet PO 50 mg QAM LAURENCE Administration Midodrine 2.5 mg 06/13/25 09:00 06/14/25 08:37 Midodrine Hcl 2.5 Mg Tablet PO 2.5 mg TID LAURENCE Administration Mirabegron 25 mg 06/10/25 09:00 06/14/25 08:38 Mirabegron 25 Mg Er Tablet PO 25 mg DAILY [facility] Administration Ondansetron HCl 4 mg 06/10/25 00:12 Ondansetron Inj 4 Mg/2 Ml Vial IV PUSH Q4H PRN Nausea Pyridostigmine [place] 30 mg 06/13/25 09:00 06/14/25 08:38 Pyridostigmine [place] 30 Mg Tablet PO 30 mg TID LAURENCE Administration Vitamin D 125 mcg 06/10/25 09:00 06/14/25 08:37 Cholecalciferol (Vitamin D3) 125 Mcg (5,000 Units) Tablet PO 125 mcg DAILY LAURENCE Administration Radiology Results: ITS Impressions Chest X-Ray 06/09/25 19:52 IMPRESSION: 1. No acute pulmonary findings. Atherosclerotic aorta. Head CT 06/09/25 19:57 IMPRESSION: 1. No acute intracranial lesions this noncontrast study. Stable chronic ischemic changes particularly in the left frontal region. Cervical Spine CT 06/09/25 19:59 IMPRESSION: 1. No acute abnormalities of C-spine. Degenerative disc disease and facet arthropathy in the lower cervical spine. Carotid Doppler Study 06/10/25 13:49 IMPRESSION: 1. No evidence of hemodynamically significant atherosclerotic obstruction of common and internal carotid arteries in the neck. 2. Antegrade flow noted in the vertebral arteries on both sides. Brain MRI 06/11/25 14:45 IMPRESSION: 1. No evidence of acute ischemia. No intracranial bleed. Extensive chronic ischemic changes on the FLAIR sequence noted. 2. No intracranial space-occupying lesions, ventriculomegaly or midline shift. Labs Labs: Laboratory Results - last 24 hr 06/13/25 06/13/25 06/13/25 12:16 17:22 20:12 WBC RBC Hgb Hct MCV MCH MCHC RDW Plt Count MPV Sodium Potassium Chloride Carbon Dioxide Anion Gap BUN Creatinine Estim Creat Clear Calc Estimated GFR Glucose POC Capillary Glucose 178 H 106 H 176 H Calcium Total Bilirubin AST ALT Alkaline Phosphatase Total Protein Albumin 06/14/25 06/14/25 04:27 08:10 WBC 8.6 RBC 4.32 Hgb 13.4 Hct 40.0 MCV 92.6 MCH 31.0 MCHC 33.5 RDW 14.2 Plt Count 238 MPV 12.1 H Sodium 135 L Potassium 3.3 L Chloride 99 Carbon Dioxide 28 Anion Gap 8 BUN 31 H Creatinine 1.42 H Estim Creat Clear Calc 27 Estimated GFR 36 L Glucose 114 H POC Capillary Glucose 142 H Calcium 9.8 Total Bilirubin 0.6 AST 26 ALT 19 Alkaline Phosphatase 61 Total Protein 7.5 Albumin 4.0
[2025-06-14] MEDS: POTASSIUM CHLORIDE 20 MEQ ER TABLET 40 MEQ PO (10:43)
[2025-06-14] MEDS: MIDODRINE HCL 2.5 MG TABLET 5 MG PO (17:20)
--- NOTE | 2025-06-14 22:05 | PC.NURSE ---
2129: PT'S SON AND FRIEND ARRIVED TO PT'S ROOM; PT ID'D FEMALE VISITOR A GOOD FRIEND MARIBEL AND MALE VISITOR SON. SON INQUIRES RE: ALLOWING PT IN SHOWER FOR BATHING. RN EXPLAINED SAFETY CONCERNS RE: HYPOTENSION AND OFFERED BED BATHING THIS SHIFT. FEMALE VISITOR LOUDLY EXPRESSES CONCERN RE: PT HYGIENE, STATING PT HAS NOT RCV'D A SHOWER SINCE ADMISSION; AGAIN THIS RN STATES SAFETY CONCERN AND STAFF PROVIDING ALTERN HYGIENE/CARE. FEMALE VISITOR STATES DESIRE TO PROVIDE HYGIENE; STATES I'LL GIVE HER A BED BATH MYSELF; THIS RN STATES NO OBJECTION TO FAMILY PROVIDING THIS BEDSIDE CARE IF THAT IS DESIRE OF PT. TOILETRIES/TOWELS PROVIDED. PT AND FEMALE VISITOR VOICE UNDERSTANDING THAT AT NO TIME SHOULD PT AMBULATE WITHOUT STAFF ASSISTANCE/PRESENT AND STAFF WILL PROVIDE BED LINEN CHANGE WHEN CARE COMPLETE. BOTH STATE UNDERSTANDING.
[2025-06-15] VITALS (13 sets, daily range): BP systolic 83–134; BP diastolic 35–74; PULSE 73–111; RESP 16–18; TEMP 36.2–36.8; O2SAT 94–99
[2025-06-15 04:46] LABS: Hematocrit 41.8 % (37.0-47.0); Hemoglobin 13.8 g/dL (12.0-15.0); Immature Granulocyte Percent A 0.2 % (0-0.5); Lymphocytes Absolute Auto 3.26 K/mm3 (0.9-3.2); Mean Corpuscular HGB Conc 33.0 g/dl (32-36); Mean Corpuscular Hemoglobin 31.0 pg (26-34); Mean Corpuscular Volume 93.9 fl (80-100); Nucleated Red Blood Cells Absolute Auto 0.000 K/mm3 (0.0-0.012); Nucleated Red Blood Cells Perc 0.0 % (0.0-0.2); Platelet Count Result 235 k/mm3 (150-375); Red Blood Count 4.45 M/mm3 (4.2-5.4); White Blood Count 9.4 K/mm3 (4.5-10.0)
[2025-06-15 05:01] LABS: Alanine Aminotransferase 40 U/L (6-35); Albumin Level 4.2 g/dL (3.5-5.1); Alkaline Phosphatase 63 U/L (38-126); Anion Gap 7 mmol/L (4-12); Aspartate Amino Transferase 42 U/L (14-36); Bilirubin,Total 0.6 mg/dL (0.2-1.3); Blood Urea Nitrogen 33 mg/dL (7-17); Calcium 10.0 mg/dL (8.4-10.2); Carbon Dioxide 24 mmol/L (22-30); Chloride 103 mmol/L (98-107); Estimated CRCL calculation 27 ml/min; Estimated Glomerular Filt Rate 35; Glucose 114 mg/dL (65-110); Magnesium 1.9 mg/dL (1.6-2.3); Potassium 4.0 mmol/L (3.4-5.0); Sodium 134 mmol/L (137-145); Total Protein 7.6 g/dL (6.3-8.2)
[2025-06-15] MEDS: LEVOTHYROXINE SODIUM 150 MCG TABLET PO (06:49)
[2025-06-15] MEDS: LEVOTHYROXINE SODIUM 25 MCG TABLET PO (06:49)
[2025-06-15] MEDS: LEVOTHYROXINE SODIUM 12.5 MCG TABLET PO (06:49)
[2025-06-15] MEDS: MIRABEGRON 25 MG ER TABLET PO (09:26)
[2025-06-15] MEDS: MIDODRINE HCL 2.5 MG TABLET 5 MG PO ×3 (09:26→17:35)
[2025-06-15] MEDS: CHOLECALCIFEROL (VITAMIN D3) 125 MCG (5,000 UNITS) TABLET PO (09:26)
--- NOTE | 2025-06-15 11:39 | P.PNIM_ITS ---
Progress Note: A&P Assessment and Plan (1) Syncope: Code(s): R55 - Syncope and collapse Status: Acute Assessment and Plan: Negative trauma workup Medications were reviewed Evaluated for incidence of hypoglycemia Avoid any sedatives or anxiolytic Reviewed a CT head and CT neck Reviewed TSH and increased levothyroxine from 175-187.5 Repeat TSH in 4-6 weeks Ordered echocardiogram and carotid ultrasound Ordered orthostatic vitals Neuro check q.4 hours On telemetry to evaluate for any arrhythmias Will discharge with event monitor PT OT evaluation MRI:1. No evidence of acute ischemia. No intracranial bleed. Extensive chronic ischemic changes on the FLAIR sequence noted. 2. No intracranial space-occupying lesions, ventriculomegaly or midline shift. Carotid doppler:1. No evidence of hemodynamically significant atherosclerotic obstruction of common and internal carotid arteries in the neck. 2. Antegrade flow noted in the vertebral arteries on both sides Cervical Spine CT:1. No acute abnormalities of C-spine. Degenerative disc disease and facet arthropathy in the lower cervical spine ECHO: 1. Complete two-dimensional, color flow and Doppler transthoracic echocardiogram is performed. 2. Left ventricular chamber dimension is normal. 3. Left ventricular systolic function is normal, estimated at 65-70. 4. The left ventricular diastolic function is grade I diastolic dysfunction. 5. E/e' 12 is mildly elevated (2) Falls: Code(s): R29.6 - Repeated falls Status: Acute Assessment and Plan: Same as above (3) Chronic kidney disease, stage III (moderate): Qualifiers: Chronic kidney disease stage 3 subtype: stage 3b (GFR 30-44) Qualified Code(s): N18.32 - Chronic kidney disease, stage 3b Code(s): N18.30 - Chronic kidney disease, stage 3 unspecified Status: Acute Assessment and Plan: Avoid nephrotoxic drugs Trend BUN and creatinine Follow-up as outpatient (4) Urinary incontinence: Qualifiers: Urinary Incontinence type: mixed stress and urge incontinence Qualified Code(s): N39.46 - Mixed incontinence Code(s): R32 - Unspecified urinary incontinence Status: Acute Assessment and Plan: Continue Mirabegron (5) Hypothyroidism: Qualifiers: Hypothyroidism type: unspecified Qualified Code(s): E03.9 - Hypothyroidism, unspecified Code(s): E03.9 - Hypothyroidism, unspecified Status: Acute Assessment and Plan: Increased levothyroxine from 175-187.5 Repeat TSH in 4-6 weeks (6) Type 2 diabetes mellitus: Qualifiers: Diabetes mellitus jail insulin use: without intermediate frame tender use Diabetes mellitus complication status: with hyperglycemia Qualified Code(s): E11.65 - Type 2 diabetes mellitus with hyperglycemia Code(s): E11.9 - Type 2 diabetes mellitus without complications Status: Acute Assessment and Plan: Low-dose sliding scale Titrate as needed (7) Orthostatic hypotension: Code(s): I95.1 - Orthostatic hypotension Status: Acute Assessment and Plan: Maintain adequate hydration EVONNE perera Started on midodrine 2.5 mg p.o. t.i.d. and pyridostigmine 30 mg p.o. t.i.d. Caution when transitioning from sitting or lying to standing Can use abdominal binder if still having symptoms with the above interventions Advised to participate in exercise, particular balance, strengthening, and gait training Adaptation or modification of living environment to prevent fall Gradually change position, especially getting out of bed slowly by sitting first and and arising slowly Stop hydrochlorothiazide. Continue to monitor orthostatic vitals Plan Disposition: Patient will benefit from SNF Subjective Date/time seen: 06/15/25 11:39 Interval history: No overnight events. She is answering more today. She denies any new complaints. She still is little slow to respond. Review of Systems Review of Systems: All systems reviewed & are unremarkable except as noted in HPI and below Exam Narrative: GENERAL: Chronically ill-looking, and in no acute distress. HEAD: Normocephalic, small laceration of the left eyebrow with suture in place EYES: PERRLA and EOMI. ENT: Nares clear, no rhinorrhea or epistaxis. Mucous membranes moist. NECK: Supple. CHEST: Clear to auscultation. No respiratory distress. HEART: Regular rate and rhythm. No murmur heard. Normal peripheral pulses. ABDOMEN: Soft, nontender, nondistended, normal active bowel sounds. EXTREMITIES: Normal range of motion. No edema. SKIN: Warm, dry, no rash. NEURO: No focal deficits. Answering appropriately, followed commands Alert and awake. Moving all extremities. PSYCH: Flat affect Objective Data Vital Signs Vital Signs: Vital Signs - 24 hr 06/14/25 12:00 06/14/25 14:05 06/14/25 14:20 Temperature 97.5 F L Pulse Rate 101 H 110 H 87 Respiratory Rate 16 16 Blood Pressure 124/77 118/66 Pulse Oximetry 98 92 Oxygen Delivery 06/14/25 14:24 06/14/25 14:27 06/14/25 16:00 Temperature Pulse Rate 82 97 76 Respiratory Rate Blood Pressure 86/58 L 79/55 L Pulse Oximetry 97 96 Oxygen Delivery 06/14/25 18:14 06/14/25 20:00 06/14/25 20:40 Temperature 97.9 F Pulse Rate 106 H 94 Respiratory Rate 16 Blood Pressure 141/74 H 112/72 Pulse Oximetry 95 Oxygen Delivery 06/14/25 20:40 06/14/25 20:43 06/14/25 20:48 Temperature Pulse Rate 94 91 98 Respiratory Rate Blood Pressure 112/72 99/66 L 90/51 L Pulse Oximetry Oxygen Delivery 06/15/25 00:00 06/15/25 04:00 06/15/25 05:48 Temperature 97.7 F Pulse Rate 106 H 103 H 76 Respiratory Rate 16 Blood Pressure 114/71 Pulse Oximetry 96 Oxygen Delivery 06/15/25 09:24 06/15/25 09:26 06/15/25 09:26 Temperature 98.2 F 98.2 F Pulse Rate 89 89 89 Respiratory Rate 16 16 16 Blood Pressure 130/63 130/63 Pulse Oximetry 95 95 95 Oxygen Delivery Room Air 06/15/25 09:26 Temperature Pulse Rate 82 Respiratory Rate Blood Pressure Pulse Oximetry Oxygen Delivery Intake/Output Intake/Output: Intake & Output 06/12/25 06/13/25 06/14/25 06/15/25 23:59 23:59 23:59 23:59 Intake Total 1370 1270 490 260 Output Total 800 700 400 Balance 1370 361 -574 -250 Meds/Results Medications: Active Medications Generic Name Dose Route Start Last Admin Trade Name Rosalinda PRN Reason Stop Dose Admin Acetaminophen 650 mg 06/10/25 00:12 Acetaminophen 325 Mg Tablet PO Q4H PRN Mild Pain (1-3) or Fever Dextrose 12.5 gm 06/10/25 15:58 Dextrose 50% 25 Gm/50 Ml Syringe IV PUSH PRN PRN Hypoglycemia Protocol Glucagon 1 mg 06/10/25 15:58 Glucagon For Inj 1 Mg Vial IM PRN PRN Hypoglycemia Protocol Glucose 15 gm 06/10/25 15:58 Glucose Oral Gel 15 Gm Of Glucse In 37.5 Gm Tube PO PRN PRN Hypoglycemia Protocol Dextrose 1,000 mls @ 100 mls/hr 06/10/25 15:58 Dextrose 5% 1,000 Ml IVPB PRN PRN Hypoglycemia Protocol Insulin Aspart 2 - 5 units 06/10/25 17:00 06/15/25 09:23 Insulin Aspart (*Bkc) 100 Units/Ml SUB-Q Not Given TIDWM [facility] Protocol Insulin Aspart 1 - 2 units 06/10/25 21:00 06/14/25 20:49 Insulin Aspart (*Bkc) 100 Units/Ml SUB-Q Not Given HS [facility] Protocol Levothyroxine Sodium 150 mcg 06/10/25 06:30 06/15/25 06:49 Levothyroxine Sodium 150 Mcg Tablet PO 150 mcg DAILY@0630 LA[facility]ENCE Administration Levothyroxine Sodium 25 mcg 06/10/25 06:30 06/15/25 06:49 Levothyroxine Sodium 25 Mcg Tablet PO 25 mcg DAILY@0630 LAURENCE Administration Levothyroxine Sodium 12.5 mcg 06/11/25 06:30 06/15/25 06:49 Levothyroxine Sodium 12.5 Mcg Tablet PO 12.5 mcg DAILY@0630 LAURENCE Administration Losartan Potassium 50 mg 06/10/25 09:00 06/15/25 09:26 Losartan Potassium 50 Mg Tablet PO 50 mg QAM LAURENCE Administration Midodrine 5 mg 06/14/25 17:00 06/15/25 09:26 Midodrine Hcl 2.5 Mg Tablet PO 5 mg TID LAURENCE Administration Mirabegron 25 mg 06/10/25 09:00 06/15/25 09:26 Mirabegron 25 Mg Er Tablet PO 25 mg DAILY LAURENCE Administration Ondansetron HCl 4 mg 06/10/25 00:12 Ondansetron Inj 4 Mg/2 Ml Vial IV PUSH Q4H PRN Nausea Pyridostigmine [place] 60 mg 06/14/25 17:00 06/15/25 09:27 Pyridostigmine [place] 60 Mg Tablet PO 60 mg TID LAURENCE Administration Vitamin D 125 mcg 06/10/25 09:00 06/15/25 09:26 Cholecalciferol (Vitamin D3) 125 Mcg (5,000 Units) Tablet PO 125 mcg DAILY [facility] Administration Radiology Results: ITS Impressions Chest X-Ray 06/09/25 19:52 IMPRESSION: 1. No acute pulmonary findings. Atherosclerotic aorta. Head CT 06/09/25 19:57 IMPRESSION: 1. No acute intracranial lesions this noncontrast study. Stable chronic ischemic changes particularly in the left frontal region. Cervical Spine CT 06/09/25 19:59 IMPRESSION: 1. No acute abnormalities of C-spine. Degenerative disc disease and facet arthropathy in the lower cervical spine. Carotid Doppler Study 06/10/25 13:49 IMPRESSION: 1. No evidence of hemodynamically significant atherosclerotic obstruction of common and internal carotid arteries in the neck. 2. Antegrade flow noted in the vertebral arteries on both sides. Brain MRI 06/11/25 14:45 IMPRESSION: 1. No evidence of acute ischemia. No intracranial bleed. Extensive chronic ischemic changes on the FLAIR sequence noted. 2. No intracranial space-occupying lesions, ventriculomegaly or midline shift. Labs Labs: Laboratory Results - last 24 hr 06/14/25 06/14/25 06/14/25 11:48 17:16 20:50 WBC RBC Hgb Hct MCV MCH MCHC RDW Plt Count MPV Immature Gran % (Auto) Neut % (Auto) Lymph % (Auto) [place] % (Auto) Eos % (Auto) Baso % (Auto) Lymph # (Auto) [place] # (Auto) Eos # (Auto) Baso # (Auto) Abs Immat Gran (auto) Absolute Neuts (auto) Absolute Nucleated RBC Nucleated RBC % Sodium Potassium Chloride Carbon Dioxide Anion Gap BUN Creatinine Estim Creat Clear Calc Estimated GFR Glucose POC Capillary Glucose 127 H 116 H 171 H Calcium Magnesium Total Bilirubin AST ALT Alkaline Phosphatase Total Protein Albumin 06/15/25 06/15/25 06/15/25 04:40 07:50 11:23 WBC 9.4 RBC 4.45 Hgb 13.8 Hct 41.8 MCV 93.9 MCH 31.0 MCHC 33.0 RDW 14.4 Plt Count 235 MPV 11.8 H Immature Gran % (Auto) 0.2 Neut % (Auto) 55.5 Lymph % (Auto) 34.9 [place] % (Auto) 6.2 Eos % (Auto) 2.5 Baso % (Auto) 0.7 Lymph # (Auto) 3.26 H [place] # (Auto) 0.6 Eos # (Auto) 0.2 Baso # (Auto) 0.1 Abs Immat Gran (auto) 0.02 Absolute Neuts (auto) 5.2 Absolute Nucleated RBC 0.000 Nucleated RBC % 0.0 Sodium 134 L Potassium 4.0 Chloride 103 Carbon Dioxide 24 Anion Gap 7 BUN 33 H Creatinine 1.45 H Estim Creat Clear Calc 27 Estimated GFR 35 L Glucose 114 H POC Capillary Glucose 129 H 289 H Calcium 10.0 Magnesium 1.9 Total Bilirubin 0.6 AST 42 H ALT 40 H Alkaline Phosphatase 63 Total Protein 7.6 Albumin 4.2
[2025-06-15] MEDS: INSULIN ASPART (*BKC) 100 UNITS/ML SUB-Q ×2 (11:40→20:52)
[2025-06-16] VITALS (13 sets, daily range): BP systolic 62–154; BP diastolic 44–94; PULSE 68–123; RESP 16–20; TEMP 36–36.9; O2SAT 96–100
[2025-06-16] MEDS: LEVOTHYROXINE SODIUM 12.5 MCG TABLET PO (05:36)
[2025-06-16] MEDS: LEVOTHYROXINE SODIUM 150 MCG TABLET PO (05:36)
[2025-06-16] MEDS: LEVOTHYROXINE SODIUM 25 MCG TABLET PO (05:36)
--- NOTE | 2025-06-16 08:30 | P.PNIM_ITS ---
Progress Note: A&P Assessment and Plan (1) Syncope: Code(s): R55 - Syncope and collapse Status: Acute Assessment and Plan: Negative trauma workup Medications were reviewed Evaluated for incidence of hypoglycemia Avoid any sedatives or anxiolytic Reviewed TSH and increased levothyroxine from 175-187.5 Repeat TSH in 4-6 weeks Positive for orthostatic vital. Started on midodrine 2.5 mg p.o. t.i.d. which has been increased to 5 mg p.o. t.i.d.. Also started on pyridostigmine 30 mg p.o. t.i.d. which has been increased to 60 mg p.o. t.i.d. Neuro check q.4 hours On telemetry to evaluate for any arrhythmias Will discharge with event monitor PT OT evaluation Imaging studies as below: CT head shows no acute intracranial lesions. Stable chronic ischemic changes particularly in the left frontal region. MRI:1. No evidence of acute ischemia. No intracranial bleed. Extensive chronic ischemic changes on the FLAIR sequence noted. 2. No intracranial space-occupying lesions, ventriculomegaly or midline shift. Carotid doppler:1. No evidence of hemodynamically significant atherosclerotic obstruction of common and internal carotid arteries in the neck. 2. Antegrade flow noted in the vertebral arteries on both sides Cervical Spine CT:1. No acute abnormalities of C-spine. Degenerative disc disease and facet arthropathy in the lower cervical spine ECHO: 1. Complete two-dimensional, color flow and Doppler transthoracic echocardiogram is performed. 2. Left ventricular chamber dimension is normal. 3. Left ventricular systolic function is normal, estimated at 65-70. 4. The left ventricular diastolic function is grade I diastolic dysfunction. 5. E/e' 12 is mildly elevated (2) Falls: Code(s): R29.6 - Repeated falls Status: Acute Assessment and Plan: Same as above (3) Chronic kidney disease, stage III (moderate): Qualifiers: Chronic kidney disease stage 3 subtype: stage 3b (GFR 30-44) Qualified Code(s): N18.32 - Chronic kidney disease, stage 3b Code(s): N18.30 - Chronic kidney disease, stage 3 unspecified Status: Acute Assessment and Plan: Avoid nephrotoxic drugs Trend BUN and creatinine Follow-up as outpatient (4) Urinary incontinence: Qualifiers: Urinary Incontinence type: mixed stress and urge incontinence Qualified Code(s): N39.46 - Mixed incontinence Code(s): R32 - Unspecified urinary incontinence Status: Acute Assessment and Plan: Continue Mirabegron (5) Hypothyroidism: Qualifiers: Hypothyroidism type: unspecified Qualified Code(s): E03.9 - Hypothyroidism, unspecified Code(s): E03.9 - Hypothyroidism, unspecified Status: Acute Assessment and Plan: Increased levothyroxine from 175-187.5 Repeat TSH in 4-6 weeks (6) Type 2 diabetes mellitus: Qualifiers: Diabetes mellitus complication status: with hyperglycemia Diabetes mellitus roasterman insulin use: without roasterman use Qualified Code(s): E11.65 - Type 2 diabetes mellitus with hyperglycemia Code(s): E11.9 - Type 2 diabetes mellitus without complications Status: Acute Assessment and Plan: Low-dose sliding scale Titrate as needed (7) Orthostatic hypotension: Code(s): I95.1 - Orthostatic hypotension Status: Acute Assessment and Plan: Maintain adequate hydration EVONNE hose Started on midodrine 2.5 mg p.o. t.i.d. increased to 5 mg p.o. t.i.d. and pyridostigmine 30 mg p.o. t.i.d. to 60 mg p.o. b.i.d. Caution when transitioning from sitting or lying to standing Can use abdominal binder if still having symptoms with the above interventions Advised to participate in exercise, particular balance, strengthening, and gait training Adaptation or modification of living environment to prevent fall Gradually change position, especially getting out of bed slowly by sitting first and and arising slowly Stop hydrochlorothiazide. Continue to monitor orthostatic vitals Plan Disposition: Patient will benefit from SNF Subjective Date/time seen: 06/16/25 08:30 Interval history: Patient midodrine has been increased from 2.5-5 mg p.o. t.i.d. and pyridostigmine from 30 mg to 60 mg p.o. t.i.d.. Had a long discussion with Neurology. Patient has a significant orthostatic hypotension. The patient's POA is her brother, who lives in [place]. Today, during the evaluation, the patient's long-time friend was present. She reported pt son has borderline intellectual functioning. Currently, the patient is getting help from a mother superior and his girlfriend, who currently lives with the patient and her son. Initially, the family was opposed to the idea, but now they are okay with the help, since pt does not want to live in a small house or a penitentiary. Review of Systems Review of Systems: A 10 system review of systems was completed on the patient and is negative except for what is stated in the HPI. Nursing and ancillary documentation was reviewed. All systems reviewed & are unremarkable except as noted in HPI and below Exam Narrative: GENERAL: Chronically ill-looking, and in no acute distress. HEAD: Normocephalic, small laceration of the left eyebrow with suture in place EYES: PERRLA and EOMI. ENT: Nares clear, no rhinorrhea or epistaxis. Mucous membranes moist. NECK: Supple. CHEST: Clear to auscultation. No respiratory distress. HEART: Regular rate and rhythm. No murmur heard. Normal peripheral pulses. ABDOMEN: Soft, nontender, nondistended, normal active bowel sounds. EXTREMITIES: Normal range of motion. No edema. SKIN: Warm, dry, no rash. NEURO: No focal deficits. Answering appropriately, followed commands Alert and awake. Moving all extremities. PSYCH: Flat affect Objective Data Vital Signs Vital Signs: Vital Signs - 24 hr 06/15/25 09:24 06/15/25 09:26 06/15/25 09:26 Temperature 98.2 F 98.2 F Pulse Rate 89 89 89 Respiratory Rate 16 16 16 Blood Pressure 130/63 130/63 Pulse Oximetry 95 95 95 Oxygen Delivery Room Air 06/15/25 09:26 06/15/25 12:00 06/15/25 13:53 Temperature 97.1 F L Pulse Rate 82 83 82 Respiratory Rate 16 Blood Pressure 114/57 L Pulse Oximetry 98 Oxygen Delivery 06/15/25 16:00 06/15/25 18:15 06/15/25 18:16 Temperature 97.5 F L 97.3 F L Pulse Rate 73 74 98 Respiratory Rate 16 16 Blood Pressure 134/72 100/59 L Pulse Oximetry 98 99 Oxygen Delivery 06/15/25 18:16 06/15/25 20:00 06/15/25 20:00 Temperature 97.3 F L 98.2 F 97.3 F L Pulse Rate 111 H 81 111 H Respiratory Rate 18 18 18 Blood Pressure 88/49 L 116/74 88/49 L Pulse Oximetry 98 96 98 Oxygen Delivery 06/15/25 20:00 06/15/25 20:00 06/15/25 21:57 Temperature 98.2 F Pulse Rate 84 82 Respiratory Rate 18 Blood Pressure 114/68 Pulse Oximetry 94 Oxygen Delivery Room Air 06/15/25 21:58 06/16/25 00:00 06/16/25 04:00 Temperature 98.2 F Pulse Rate 111 H 77 112 H Respiratory Rate 18 Blood Pressure 83/35 L Pulse Oximetry 96 Oxygen Delivery 06/16/25 06:00 06/16/25 07:18 06/16/25 07:19 Temperature 98.4 F 98.4 F 98.4 F Pulse Rate 81 116 H 123 H Respiratory Rate 18 18 20 Blood Pressure 143/94 H 90/62 L 62/44 L Pulse Oximetry 97 97 97 Oxygen Delivery Intake/Output Intake/Output: Intake & Output 06/13/25 06/14/25 06/15/25 06/16/25 23:59 23:59 23:59 23:59 Intake Total 1270 490 740 Output Total 800 700 400 Balance 470 -210 340 Meds/Results Medications: Active Medications Generic Name Dose Route Start Last Admin Trade Name Freq PRN Reason Stop Dose Admin Acetaminophen 650 mg 06/10/25 00:12 Acetaminophen 325 Mg Tablet PO Q4H PRN Mild Pain (1-3) or Fever Dextrose 12.5 gm 06/10/25 15:58 Dextrose 50% 25 Gm/50 Ml Syringe IV PUSH PRN PRN Hypoglycemia Protocol Glucagon 1 mg 06/10/25 15:58 Glucagon For Inj 1 Mg Vial IM PRN PRN Hypoglycemia Protocol Glucose 15 gm 06/10/25 15:58 Glucose Oral Gel 15 Gm Of Glucse In 37.5 Gm Tube PO PRN PRN Hypoglycemia Protocol Dextrose 1,000 mls @ 100 mls/hr 06/10/25 15:58 Dextrose 5% 1,000 Ml IVPB PRN PRN Hypoglycemia Protocol Insulin Aspart 2 - 5 units 06/10/25 17:00 06/15/25 17:10 Insulin Aspart (*Bkc) 100 Units/Ml SUB-Q Not Given TIDWM [facility] Protocol Insulin Aspart 1 - 2 units 06/10/25 21:00 06/15/25 20:52 Insulin Aspart (*Bkc) 100 Units/Ml SUB-Q 1 units HS [facility] Administration Protocol Levothyroxine Sodium 150 mcg 06/10/25 06:30 06/16/25 05:36 Levothyroxine Sodium 150 Mcg Tablet PO 150 mcg DAILY@0630 [facility] Administration Levothyroxine Sodium 25 mcg 06/10/25 06:30 06/16/25 05:36 Levothyroxine Sodium 25 Mcg Tablet PO 25 mcg DAILY@0630 [facility] Administration Levothyroxine Sodium 12.5 mcg 06/11/25 06:30 06/16/25 05:36 Levothyroxine Sodium 12.5 Mcg Tablet PO 12.5 mcg DAILY@0630 [facility] Administration Losartan Potassium 50 mg 06/10/25 09:00 06/15/25 09:26 Losartan Potassium 50 Mg Tablet PO 50 mg QAM [facility] Administration Midodrine 5 mg 06/14/25 17:00 06/15/25 17:35 Midodrine Hcl 2.5 Mg Tablet PO 5 mg TID [facility] Administration Mirabegron 25 mg 06/10/25 09:00 06/15/25 09:26 Mirabegron 25 Mg Er Tablet PO 25 mg DAILY [facility] Administration Ondansetron HCl 4 mg 06/10/25 00:12 Ondansetron Inj 4 Mg/2 Ml Vial IV PUSH Q4H PRN Nausea Pyridostigmine [place] 60 mg 06/14/25 17:00 06/15/25 17:36 Pyridostigmine [place] 60 Mg Tablet PO 60 mg TID [facility] Administration Vitamin D 125 mcg 06/10/25 09:00 06/15/25 09:26 Cholecalciferol (Vitamin D3) 125 Mcg (5,000 Units) Tablet PO 125 mcg DAILY [facility] Administration Radiology Results: ITS Impressions Chest X-Ray 06/09/25 19:52 IMPRESSION: 1. No acute pulmonary findings. Atherosclerotic aorta. Head CT 06/09/25 19:57 IMPRESSION: 1. No acute intracranial lesions this noncontrast study. Stable chronic ischemic changes particularly in the left frontal region. Cervical Spine CT 06/09/25 19:59 IMPRESSION: 1. No acute abnormalities of C-spine. Degenerative disc disease and facet arthropathy in the lower cervical spine. Carotid Doppler Study 06/10/25 13:49 IMPRESSION: 1. No evidence of hemodynamically significant atherosclerotic obstruction of common and internal carotid arteries in the neck. 2. Antegrade flow noted in the vertebral arteries on both sides. Brain MRI 06/11/25 14:45 IMPRESSION: 1. No evidence of acute ischemia. No intracranial bleed. Extensive chronic ischemic changes on the FLAIR sequence noted. 2. No intracranial space-occupying lesions, ventriculomegaly or midline shift. Labs Labs: Laboratory Results - last 24 hr 06/15/25 06/15/25 06/15/25 11:23 16:28 19:44 POC Capillary Glucose 289 H 126 H 220 H 06/16/25 07:39 POC Capillary Glucose 120 H Hospitalist MIPS Advance Care Plan I have confirmed that the patient's Advanced Care Plan is present, code status is documented, or surrogate decision maker is listed in patient medical record.: Yes Medication Reconciliation I have utilized all available resources to obtain, update and review the patients current medications (includes all prescriptions, OTC, herbals, cannabis, and nutritional supplements).: Yes
[2025-06-16 08:54] LABS: Hematocrit 41.2 % (37.0-47.0); Hemoglobin 13.7 g/dL (12.0-15.0); Mean Corpuscular HGB Conc 33.3 g/dl (32-36); Mean Corpuscular Hemoglobin 31.1 pg (26-34); Mean Corpuscular Volume 93.4 fl (80-100); Platelet Count Result 234 k/mm3 (150-375); Red Blood Count 4.41 M/mm3 (4.2-5.4); White Blood Count 8.8 K/mm3 (4.5-10.0)
[2025-06-16 09:31] LABS: Alanine Aminotransferase 54 U/L (6-35); Albumin Level 4.0 g/dL (3.5-5.1); Alkaline Phosphatase 67 U/L (38-126); Anion Gap 8 mmol/L (4-12); Aspartate Amino Transferase 43 U/L (14-36); Bilirubin,Total 0.7 mg/dL (0.2-1.3); Blood Urea Nitrogen 37 mg/dL (7-17); Calcium 10.0 mg/dL (8.4-10.2); Carbon Dioxide 25 mmol/L (22-30); Chloride 103 mmol/L (98-107); Estimated CRCL calculation 24 ml/min; Estimated Glomerular Filt Rate 31; Glucose 108 mg/dL (65-110); Potassium 4.0 mmol/L (3.4-5.0); Sodium 136 mmol/L (137-145); Total Protein 7.5 g/dL (6.3-8.2)
[2025-06-16] MEDS: MIDODRINE HCL 2.5 MG TABLET 5 MG PO ×3 (09:35→17:17)
[2025-06-16] MEDS: CHOLECALCIFEROL (VITAMIN D3) 125 MCG (5,000 UNITS) TABLET PO (09:35)
[2025-06-16] MEDS: MIRABEGRON 25 MG ER TABLET PO (09:35)
--- NOTE | 2025-06-16 17:20 | WPDNEUROPN ---
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 I suggested to add DROXDOPA starting the 100 mg 3 times a day and also add fludrocortisone 0.1 mg a day. She may continue the midodrine 5 mg 3 times a day and pyridostigmine 60 mg 3 times a day. We should continue to monitor her blood pressure supine and standing. We should be careful to watch for supine hypertension. Safety precautions important in view of the persistent postural hypertension. The patient also appears to have mild cognitive impairment. MRI of the brain did not show any significant abnormalities. Carotid Doppler study also did not show any she hemodynamically significant narrowing. Patient also has diabetic peripheral neuropathy and chronic kidney disease. I do not see any evidence for Parkinson's disease. She also denies any hallucinations. Diabetes itself can lead to autonomic neuropathy. Patient has been a smoker and also history of breast cancer in the past. She may require some treatment for cognitive impairment was the things settle down from the point of view of orthostatic Hypertension. Subjective Date/time seen: 06/16/25 17:20 Interval history: Patient is 74-year-old with history of multiple falls. She continues to have problem of postural hypertension. She also has mild memory loss. One of her best friend was here when I came to see her today. Patient has mild chronic kidney disease. Blood pressure this morning still shows significant postural hypertension. She feels lightheaded when she gets up and hence most of the time she is lying down in the bed. She is on midodrine and pyridostigmine the doses have been adjusted to midodrine 5 mg 3 times a day impaired the stigma 60 mg 3 times a day yesterday. Review of Systems Review of Systems: All systems reviewed & are unremarkable except as noted in HPI and below Exam Const: General: cooperative and no acute distress HENMT: Head: atraumatic Eyes: Alignment and Position: alignment normal and position normal EOM: EOMs intact bilaterally Neck: Neck: normal visual inspection and supple Resp: Effort & Inspection: normal respiratory effort Skin: General skin exam: normal color Neuro: Cranial nerves: Yes CN's II-XII intact bilaterally, Yes facial symmetry and Yes Midline tongue present Speech: normal speech Other: She was able to name 5 colors. She did not know the month and made an error in the year. No aphasia or dysarthria. She does seem to be trying to answer the questions Extrem: General: normal to inspection Psych: Affect: normal affect Objective Data Vital Signs Vital Signs: Vital Signs - 24 hr 06/15/25 18:15 06/15/25 18:16 06/15/25 18:16 Temperature 97.5 F L 97.3 F L 97.3 F L Pulse Rate 74 98 111 H Respiratory Rate 16 16 18 Blood Pressure 134/72 100/59 L 88/49 L Pulse Oximetry 98 99 98 Oxygen Delivery 06/15/25 20:00 06/15/25 20:00 06/15/25 20:00 Temperature 98.2 F 97.3 F L Pulse Rate 81 111 H Respiratory Rate 18 18 Blood Pressure 116/74 88/49 L Pulse Oximetry 96 98 Oxygen Delivery Room Air 06/15/25 20:00 06/15/25 21:57 06/15/25 21:58 Temperature 98.2 F 98.2 F Pulse Rate 84 82 111 H Respiratory Rate 18 18 Blood Pressure 114/68 83/35 L Pulse Oximetry 94 96 Oxygen Delivery 06/16/25 00:00 06/16/25 04:00 06/16/25 06:00 Temperature 98.4 F Pulse Rate 77 112 H 81 Respiratory Rate 18 Blood Pressure 143/94 H Pulse Oximetry 97 Oxygen Delivery 06/16/25 07:18 06/16/25 07:19 06/16/25 09:33 Temperature 98.4 F 98.4 F 96.8 F L Pulse Rate 116 H 123 H 104 H Respiratory Rate 18 20 18 Blood Pressure 90/62 L 62/44 L 121/74 Pulse Oximetry 97 97 96 Oxygen Delivery 06/16/25 09:35 06/16/25 09:35 06/16/25 09:35 Temperature 96.8 F L Pulse Rate 104 H 95 Respiratory Rate 18 Blood Pressure 121/74 Pulse Oximetry 96 96 Oxygen Delivery Room Air 06/16/25 12:00 06/16/25 14:00 06/16/25 16:00 Temperature 97.4 F L Pulse Rate 70 95 68 Respiratory Rate 16 Blood Pressure 147/85 H Pulse Oximetry 99 Oxygen Delivery Intake/Output Intake/Output: Intake & Output 06/13/25 06/14/25 06/15/25 06/16/25 23:59 23:59 23:59 23:59 Intake Total 1270 490 740 240 Output Total 800 700 400 Balance 470 -210 340 240 Meds/Results Medications: Active Medications Generic Name Dose Route Start Last Admin Trade Name Omidq PRN Reason Stop Dose Admin Acetaminophen 650 mg 06/10/25 00:12 Acetaminophen 325 Mg Tablet PO Q4H PRN Mild Pain (1-3) or Fever Dextrose 12.5 gm 06/10/25 15:58 Dextrose 50% 25 Gm/50 Ml Syringe IV PUSH PRN PRN Hypoglycemia Protocol Glucagon 1 mg 06/10/25 15:58 Glucagon For Inj 1 Mg Vial IM PRN PRN Hypoglycemia Protocol Glucose 15 gm 06/10/25 15:58 Glucose Oral Gel 15 Gm Of Glucse In 37.5 Gm Tube PO PRN PRN Hypoglycemia Protocol Dextrose 1,000 mls @ 100 mls/hr 06/10/25 15:58 Dextrose 5% 1,000 Ml IVPB PRN PRN Hypoglycemia Protocol Insulin Aspart 2 - 5 units 06/10/25 17:00 06/16/25 17:14 Insulin Aspart (*Bkc) 100 Units/Ml SUB-Q Not Given TIDWM [facility] Protocol Insulin Aspart 1 - 2 units 06/10/25 21:00 06/15/25 20:52 Insulin Aspart (*Bkc) 100 Units/Ml SUB-Q 1 units HS [facility] Administration Protocol Levothyroxine Sodium 150 mcg 06/10/25 06:30 06/16/25 05:36 Levothyroxine Sodium 150 Mcg Tablet PO 150 mcg DAILY@0630 [facility] Administration Levothyroxine Sodium 25 mcg 06/10/25 06:30 06/16/25 05:36 Levothyroxine Sodium 25 Mcg Tablet PO 25 mcg DAILY@0630 [facility] Administration Levothyroxine Sodium 12.5 mcg 06/11/25 06:30 06/16/25 05:36 Levothyroxine Sodium 12.5 Mcg Tablet PO 12.5 mcg DAILY@0630 [facility] Administration Losartan Potassium 50 mg 06/10/25 09:00 06/16/25 09:40 Losartan Potassium 50 Mg Tablet PO Not Given QAM [facility] Midodrine 5 mg 06/14/25 17:00 06/16/25 17:17 Midodrine Hcl 2.5 Mg Tablet PO 5 mg TID [facility] Administration Mirabegron 25 mg 06/10/25 09:00 06/16/25 09:35 Mirabegron 25 Mg Er Tablet PO 25 mg DAILY [facility] Administration Ondansetron HCl 4 mg 06/10/25 00:12 Ondansetron Inj 4 Mg/2 Ml Vial IV PUSH Q4H PRN Nausea Pyridostigmine [place] 60 mg 06/14/25 17:00 06/16/25 17:17 Pyridostigmine [place] 60 Mg Tablet PO 60 mg TID [facility] Administration Vitamin D 125 mcg 06/10/25 09:00 06/16/25 09:35 Cholecalciferol (Vitamin D3) 125 Mcg (5,000 Units) Tablet PO 125 mcg DAILY [facility] Administration Radiology Results: ITS Impressions Chest X-Ray 06/09/25 19:52 IMPRESSION: 1. No acute pulmonary findings. Atherosclerotic aorta. Head CT 06/09/25 19:57 IMPRESSION: 1. No acute intracranial lesions this noncontrast study. Stable chronic ischemic changes particularly in the left frontal region. Cervical Spine CT 06/09/25 19:59 IMPRESSION: 1. No acute abnormalities of C-spine. Degenerative disc disease and facet arthropathy in the lower cervical spine. Carotid Doppler Study 06/10/25 13:49 IMPRESSION: 1. No evidence of hemodynamically significant atherosclerotic obstruction of common and internal carotid arteries in the neck. 2. Antegrade flow noted in the vertebral arteries on both sides. Brain MRI 06/11/25 14:45 IMPRESSION: 1. No evidence of acute ischemia. No intracranial bleed. Extensive chronic ischemic changes on the FLAIR sequence noted. 2. No intracranial space-occupying lesions, ventriculomegaly or midline shift. Labs Labs: Laboratory Results - last 24 hr 06/15/25 06/16/25 06/16/25 19:44 07:39 08:47 WBC 8.8 RBC 4.41 Hgb 13.7 Hct 41.2 MCV 93.4 MCH 31.1 MCHC 33.3 RDW 14.6 H Plt Count 234 MPV 11.6 H Sodium 136 L Potassium 4.0 Chloride 103 Carbon Dioxide 25 Anion Gap 8 BUN 37 H Creatinine 1.62 H Estim Creat Clear Calc 24 Estimated GFR 31 L Glucose 108 POC Capillary Glucose 220 H 120 H Calcium 10.0 Total Bilirubin 0.7 AST 43 H ALT 54 H Alkaline Phosphatase 67 Total Protein 7.5 Albumin 4.0 06/16/25 06/16/25 11:53 16:49 WBC RBC Hgb Hct MCV MCH MCHC RDW Plt Count MPV Sodium Potassium Chloride Carbon Dioxide Anion Gap BUN Creatinine Estim Creat Clear Calc Estimated GFR Glucose POC Capillary Glucose 139 H 112 H Calcium Total Bilirubin AST ALT Alkaline Phosphatase Total Protein Albumin
[2025-06-16] MEDS: INSULIN ASPART (*BKC) 100 UNITS/ML SUB-Q (21:03)
[2025-06-17] VITALS (17 sets, daily range): BP systolic 80–153; BP diastolic 63–86; PULSE 65–122; RESP 15–18; TEMP 36.3–37; O2SAT 96–100
[2025-06-17 05:30] LABS: Hematocrit 39.8 % (37.0-47.0); Hemoglobin 12.9 g/dL (12.0-15.0); Mean Corpuscular HGB Conc 32.4 g/dl (32-36); Mean Corpuscular Hemoglobin 30.6 pg (26-34); Mean Corpuscular Volume 94.3 fl (80-100); Platelet Count Result 239 k/mm3 (150-375); Red Blood Count 4.22 M/mm3 (4.2-5.4); White Blood Count 8.4 K/mm3 (4.5-10.0)
[2025-06-17] MEDS: LEVOTHYROXINE SODIUM 12.5 MCG TABLET PO (05:37)
[2025-06-17] MEDS: LEVOTHYROXINE SODIUM 25 MCG TABLET PO (05:38)
[2025-06-17] MEDS: LEVOTHYROXINE SODIUM 150 MCG TABLET PO (05:38)
[2025-06-17 05:59] LABS: Alanine Aminotransferase 43 U/L (6-35); Albumin Level 4.0 g/dL (3.5-5.1); Alkaline Phosphatase 70 U/L (38-126); Anion Gap 6 mmol/L (4-12); Aspartate Amino Transferase 37 U/L (14-36); Bilirubin,Total 0.6 mg/dL (0.2-1.3); Blood Urea Nitrogen 33 mg/dL (7-17); Calcium 9.8 mg/dL (8.4-10.2); Carbon Dioxide 26 mmol/L (22-30); Chloride 103 mmol/L (98-107); Estimated CRCL calculation 26 ml/min; Estimated Glomerular Filt Rate 34; Glucose 98 mg/dL (65-110); Potassium 3.6 mmol/L (3.4-5.0); Sodium 135 mmol/L (137-145); Total Protein 7.3 g/dL (6.3-8.2)
--- NOTE | 2025-06-17 10:22 | PCNFU ---
Nutrition Follow-Up Complete: Severe Protein Malnutrition as related to inadequate protein energy intake with increased protein energy needs in setting of chronic disease (chronic kidney disease) as evidenced by minimal oral intake for > 1-2 months: moderate muscle wasting (temporalis) and moderate subcutaneous fat loss (temporalis, clavicle). Meet estimated nutritional needs - Progressing with goal. Continue with same goal Goal: Pt current nutrition is Heart healthy diet. Nutritional ice cream BID (270 kcal, 9 g protein each). Nutrition recommendation: No new recommendations. Continue current nutrition care plan and orders. Agree with orders Last recorded weight is 56.5 kg. Bowel Motility: + 1 BM 06/16 Labs Reviewed: Na 135, GFR 33, BUN 1.51 Meds Noted: Vit D, novolog Skin: No skin issues Additional Notes: Refused breakfast. Intakes 10-75% last 48 hours. Discharge planning to SNF. Continue current nutrition care plan and orders. Will monitor weight, labs, skin, diet orders, meds every 3 days.
[2025-06-17] MEDS: MIRABEGRON 25 MG ER TABLET PO (10:47)
[2025-06-17] MEDS: MIDODRINE HCL 2.5 MG TABLET 5 MG PO ×3 (10:48→18:08)
[2025-06-17] MEDS: CHOLECALCIFEROL (VITAMIN D3) 125 MCG (5,000 UNITS) TABLET PO (10:48)
--- NOTE | 2025-06-17 11:36 | PC.NURSE ---
Patient refusing bed alarm and gets up without calling staff. Educated patient on safety of call light, orthostatic hypotension and fall risks. Patient returned to bed after assistance to bathroom and alarm set.
--- NOTE | 2025-06-17 12:57 | P.PNIM_ITS ---
Progress Note: A&P Assessment and Plan (1) Syncope: Code(s): R55 - Syncope and collapse Status: Acute Assessment and Plan: Negative trauma workup Medications were reviewed still orthostatic this morning Evaluated for incidence of hypoglycemia Avoid any sedatives or anxiolytic Reviewed TSH and increased levothyroxine from 175-187.5 Repeat TSH in 4-6 weeks Positive for orthostatic vital. Started on midodrine 2.5 mg p.o. t.i.d. which has been increased to 5 mg p.o. t.i.d.. Also started on pyridostigmine 30 mg p.o. t.i.d. which has been increased to 60 mg p.o. t.i.d. Neuro check q.4 hours On telemetry to evaluate for any arrhythmias Will discharge with event monitor Neuro recommended Droxidopa however not available on formulary, awaiting further adjustment per neurology PT OT evaluation Imaging studies as below: CT head shows no acute intracranial lesions. Stable chronic ischemic changes particularly in the left frontal region. MRI:1. No evidence of acute ischemia. No intracranial bleed. Extensive chronic ischemic changes on the FLAIR sequence noted. 2. No intracranial space-occupying lesions, ventriculomegaly or midline shift. Carotid doppler:1. No evidence of hemodynamically significant atherosclerotic obstruction of common and internal carotid arteries in the neck. 2. Antegrade flow noted in the vertebral arteries on both sides Cervical Spine CT:1. No acute abnormalities of C-spine. Degenerative disc disease and facet arthropathy in the lower cervical spine ECHO: 1. Complete two-dimensional, color flow and Doppler transthoracic echocardiogram is performed. 2. Left ventricular chamber dimension is normal. 3. Left ventricular systolic function is normal, estimated at 65-70. 4. The left ventricular diastolic function is grade I diastolic dysfunction. 5. E/e' 12 is mildly elevated (2) Falls: Code(s): R29.6 - Repeated falls Status: Acute Assessment and Plan: Same as above (3) Chronic kidney disease, stage III (moderate): Qualifiers: Chronic kidney disease stage 3 subtype: stage 3b (GFR 30-44) Qualified Code(s): N18.32 - Chronic kidney disease, stage 3b Code(s): N18.30 - Chronic kidney disease, stage 3 unspecified Status: Acute Assessment and Plan: Avoid nephrotoxic drugs Trend BUN and creatinine Follow-up as outpatient (4) Urinary incontinence: Qualifiers: Urinary Incontinence type: mixed stress and urge incontinence Qualified Code(s): N39.46 - Mixed incontinence Code(s): R32 - Unspecified urinary incontinence Status: Acute Assessment and Plan: Continue Mirabegron (5) Hypothyroidism: Qualifiers: Hypothyroidism type: unspecified Qualified Code(s): E03.9 - Hypothyroidism, unspecified Code(s): E03.9 - Hypothyroidism, unspecified Status: Acute Assessment and Plan: Increased levothyroxine from 175-187.5 Repeat TSH in 4-6 weeks (6) Type 2 diabetes mellitus: Qualifiers: Diabetes mellitus arson investigator insulin use: without arson investigator use Diabetes mellitus complication status: with hyperglycemia Qualified Code(s): E11.65 - Type 2 diabetes mellitus with hyperglycemia Code(s): E11.9 - Type 2 diabetes mellitus without complications Status: Acute Assessment and Plan: Low-dose sliding scale Titrate as needed (7) Orthostatic hypotension: Code(s): I95.1 - Orthostatic hypotension Status: Acute Assessment and Plan: Maintain adequate hydration EVONNE hose Started on midodrine 2.5 mg p.o. t.i.d. increased to 5 mg p.o. t.i.d. and pyridostigmine 30 mg p.o. t.i.d. to 60 mg p.o. b.i.d. Caution when transitioning from sitting or lying to standing Can use abdominal binder if still having symptoms with the above interventions Advised to participate in exercise, particular balance, strengthening, and gait training Adaptation or modification of living environment to prevent fall Gradually change position, especially getting out of bed slowly by sitting first and and arising slowly Stop hydrochlorothiazide. Continue to monitor orthostatic vitals Plan Disposition: Patient will benefit from SNF awaiting final neuro recs Subjective Date/time seen: 06/17/25 12:57 Interval history: Comfortable at bedside still orthostatic this morning Review of Systems Review of Systems: A 10 system review of systems was completed on the patient and is negative except for what is stated in the HPI. Nursing and ancillary documentation was reviewed. All systems reviewed & are unremarkable except as noted in HPI and below Exam Narrative: GENERAL: Chronically ill-looking, and in no acute distress. HEAD: Normocephalic, small laceration of the left eyebrow with suture in place EYES: PERRLA and EOMI. ENT: Nares clear, no rhinorrhea or epistaxis. Mucous membranes moist. NECK: Supple. CHEST: Clear to auscultation. No respiratory distress. HEART: Regular rate and rhythm. No murmur heard. Normal peripheral pulses. ABDOMEN: Soft, nontender, nondistended, normal active bowel sounds. EXTREMITIES: Normal range of motion. No edema. SKIN: Warm, dry, no rash. NEURO: No focal deficits. Answering appropriately, followed commands Alert and awake. Moving all extremities. PSYCH: Flat affect Objective Data Vital Signs Vital Signs: Vital Signs - 24 hr 06/16/25 14:00 06/16/25 16:00 06/16/25 20:00 Temperature 97.4 F L Pulse Rate 95 68 Respiratory Rate 16 Blood Pressure 147/85 H Pulse Oximetry 99 Oxygen Delivery Room Air 06/16/25 20:00 06/16/25 20:00 06/16/25 21:50 Temperature 98.0 F 98.0 F Pulse Rate 94 68 87 Respiratory Rate 18 18 Blood Pressure 99/59 L 115/75 Pulse Oximetry 100 98 Oxygen Delivery 06/16/25 21:51 06/17/25 00:00 06/17/25 04:00 Temperature 98.0 F Pulse Rate 91 74 94 Respiratory Rate 16 Blood Pressure 154/81 H Pulse Oximetry 96 Oxygen Delivery 06/17/25 07:14 06/17/25 07:15 06/17/25 07:16 Temperature 98.6 F 98.6 F 98.6 F Pulse Rate 73 102 H 99 Respiratory Rate 18 18 18 Blood Pressure 153/78 H 127/73 100/64 Pulse Oximetry 96 96 98 Oxygen Delivery 06/17/25 10:18 06/17/25 10:21 06/17/25 10:24 Temperature Pulse Rate 84 87 122 H Respiratory Rate Blood Pressure 153/84 H 130/86 80/65 L Pulse Oximetry Oxygen Delivery 06/17/25 10:47 06/17/25 10:47 06/17/25 12:00 Temperature Pulse Rate 71 75 Respiratory Rate Blood Pressure Pulse Oximetry Oxygen Delivery Room Air Intake/Output Intake/Output: Intake & Output 06/14/25 06/15/25 06/16/25 06/17/25 23:59 23:59 23:59 23:59 Intake Total 490 740 760 Output Total 700 400 1 0 Balance -210 340 759 0 Meds/Results Medications: Active Medications Generic Name Dose Route Start Last Admin Trade Name Freq PRN Reason Stop Dose Admin Acetaminophen 650 mg 06/10/25 00:12 Acetaminophen 325 Mg Tablet PO Q4H PRN Mild Pain (1-3) or Fever Dextrose 12.5 gm 06/10/25 15:58 Dextrose 50% 25 Gm/50 Ml Syringe IV PUSH PRN PRN Hypoglycemia Protocol Glucagon 1 mg 06/10/25 15:58 Glucagon For Inj 1 Mg Vial IM PRN PRN Hypoglycemia Protocol Glucose 15 gm 06/10/25 15:58 Glucose Oral Gel 15 Gm Of Glucse In 37.5 Gm Tube PO PRN PRN Hypoglycemia Protocol Dextrose 1,000 mls @ 100 mls/hr 06/10/25 15:58 Dextrose 5% 1,000 Ml IVPB PRN PRN Hypoglycemia Protocol Insulin Aspart 2 - 5 units 06/10/25 17:00 06/17/25 11:39 Insulin Aspart (*Bkc) 100 Units/Ml SUB-Q Not Given TIDWM [facility] Protocol Insulin Aspart 1 - 2 units 06/10/25 21:00 06/16/25 21:03 Insulin Aspart (*Bkc) 100 Units/Ml SUB-Q 1 units HS [facility] Administration Protocol Levothyroxine Sodium 150 mcg 06/10/25 06:30 06/17/25 05:38 Levothyroxine Sodium 150 Mcg Tablet PO 150 mcg DAILY@0630 [facility] Administration Levothyroxine Sodium 25 mcg 06/10/25 06:30 06/17/25 05:38 Levothyroxine Sodium 25 Mcg Tablet PO 25 mcg DAILY@0630 [facility] Administration Levothyroxine Sodium 12.5 mcg 06/11/25 06:30 06/17/25 05:37 Levothyroxine Sodium 12.5 Mcg Tablet PO 12.5 mcg DAILY@0630 [facility] Administration Losartan Potassium 50 mg 06/10/25 09:00 06/17/25 11:31 Losartan Potassium 50 Mg Tablet PO Not Given QAM [facility] Midodrine 5 mg 06/14/25 17:00 06/17/25 10:48 Midodrine Hcl 2.5 Mg Tablet PO 5 mg TID [facility] Administration Mirabegron 25 mg 06/10/25 09:00 06/17/25 10:47 Mirabegron 25 Mg Er Tablet PO 25 mg DAILY [facility] Administration Ondansetron HCl 4 mg 06/10/25 00:12 Ondansetron Inj 4 Mg/2 Ml Vial IV PUSH Q4H PRN Nausea Pyridostigmine [place] 60 mg 06/14/25 17:00 06/17/25 10:47 Pyridostigmine [place] 60 Mg Tablet PO 60 mg TID [facility] Administration Vitamin D 125 mcg 06/10/25 09:00 06/17/25 10:48 Cholecalciferol (Vitamin D3) 125 Mcg (5,000 Units) Tablet PO 125 mcg DAILY [facility] Administration Radiology Results: ITS Impressions Chest X-Ray 06/09/25 19:52 IMPRESSION: 1. No acute pulmonary findings. Atherosclerotic aorta. Head CT 06/09/25 19:57 IMPRESSION: 1. No acute intracranial lesions this noncontrast study. Stable chronic ischemic changes particularly in the left frontal region. Cervical Spine CT 06/09/25 19:59 IMPRESSION: 1. No acute abnormalities of C-spine. Degenerative disc disease and facet arthropathy in the lower cervical spine. Carotid Doppler Study 06/10/25 13:49 IMPRESSION: 1. No evidence of hemodynamically significant atherosclerotic obstruction of common and internal carotid arteries in the neck. 2. Antegrade flow noted in the vertebral arteries on both sides. Brain MRI 06/11/25 14:45 IMPRESSION: 1. No evidence of acute ischemia. No intracranial bleed. Extensive chronic ischemic changes on the FLAIR sequence noted. 2. No intracranial space-occupying lesions, ventriculomegaly or midline shift. Labs Labs: Laboratory Results - last 24 hr 06/16/25 06/16/25 06/17/25 16:49 19:59 05:03 WBC 8.4 RBC 4.22 Hgb 12.9 Hct 39.8 MCV 94.3 MCH 30.6 MCHC 32.4 RDW 14.3 Plt Count 239 MPV 11.8 H Sodium 135 L Potassium 3.6 Chloride 103 Carbon Dioxide 26 Anion Gap 6 BUN 33 H Creatinine 1.51 H Estim Creat Clear Calc 26 Estimated GFR 34 L Glucose 98 POC Capillary Glucose 112 H 254 H Calcium 9.8 Total Bilirubin 0.6 AST 37 H ALT 43 H Alkaline Phosphatase 70 Total Protein 7.3 Albumin 4.0 06/17/25 06/17/25 07:30 11:28 WBC RBC Hgb Hct MCV MCH MCHC RDW Plt Count MPV Sodium Potassium Chloride Carbon Dioxide Anion Gap BUN Creatinine Estim Creat Clear Calc Estimated GFR Glucose POC Capillary Glucose 110 H 120 H Calcium Total Bilirubin AST ALT Alkaline Phosphatase Total Protein Albumin
[2025-06-18] VITALS (10 sets, daily range): BP systolic 99–141; BP diastolic 55–85; PULSE 64–98; RESP 16–18; TEMP 36.3–36.6; O2SAT 96
[2025-06-18 04:36] LABS: Hematocrit 37.9 % (37.0-47.0); Hemoglobin 12.5 g/dL (12.0-15.0); Immature Granulocyte Percent A 0.3 % (0-0.5); Lymphocytes Absolute Auto 3.15 K/mm3 (0.9-3.2); Mean Corpuscular HGB Conc 33.0 g/dl (32-36); Mean Corpuscular Hemoglobin 31.2 pg (26-34); Mean Corpuscular Volume 94.5 fl (80-100); Nucleated Red Blood Cells Absolute Auto 0.000 K/mm3 (0.0-0.012); Nucleated Red Blood Cells Perc 0.0 % (0.0-0.2); Platelet Count Result 235 k/mm3 (150-375); Red Blood Count 4.01 M/mm3 (4.2-5.4); White Blood Count 9.0 K/mm3 (4.5-10.0)
[2025-06-18 04:51] LABS: Alanine Aminotransferase 32 U/L (6-35); Albumin Level 3.9 g/dL (3.5-5.1); Alkaline Phosphatase 72 U/L (38-126); Anion Gap 5 mmol/L (4-12); Aspartate Amino Transferase 24 U/L (14-36); Bilirubin,Total 0.5 mg/dL (0.2-1.3); Blood Urea Nitrogen 35 mg/dL (7-17); Calcium 9.9 mg/dL (8.4-10.2); Carbon Dioxide 26 mmol/L (22-30); Chloride 105 mmol/L (98-107); Estimated CRCL calculation 25 ml/min; Estimated Glomerular Filt Rate 33; Glucose 102 mg/dL (65-110); Magnesium 2.0 mg/dL (1.6-2.3); Potassium 3.6 mmol/L (3.4-5.0); Sodium 136 mmol/L (137-145); Total Protein 7.2 g/dL (6.3-8.2)
[2025-06-18] MEDS: LEVOTHYROXINE SODIUM 12.5 MCG TABLET PO (06:14)
[2025-06-18] MEDS: LEVOTHYROXINE SODIUM 150 MCG TABLET PO (06:14)
[2025-06-18] MEDS: LEVOTHYROXINE SODIUM 25 MCG TABLET PO (06:14)
[2025-06-18] MEDS: MIDODRINE HCL 2.5 MG TABLET 5 MG PO ×2 (08:26→12:48)
[2025-06-18] MEDS: CHOLECALCIFEROL (VITAMIN D3) 125 MCG (5,000 UNITS) TABLET PO (08:26)
[2025-06-18] MEDS: MIRABEGRON 25 MG ER TABLET PO (08:26)
--- NOTE | 2025-06-18 13:14 | P.DS_ITS ---
DS: Admitting Diagnosis Discharge Date 06/18/2025 Admitting Diagnosis Syncope DS: Discharge Diagnosis Discharge Diagnosis (1) Syncope: Code(s): R55 - Syncope and collapse Status: Acute Assessment and Plan: Negative trauma workup Medications were reviewed still orthostatic this morning Evaluated for incidence of hypoglycemia Avoid any sedatives or anxiolytic Reviewed TSH and increased levothyroxine from 175-187.5 Repeat TSH in 4-6 weeks Positive for orthostatic vital. Started on midodrine 2.5 mg p.o. t.i.d. which has been increased to 5 mg p.o. t.i.d.. Also started on pyridostigmine 30 mg p.o. t.i.d. which has been increased to 60 mg p.o. t.i.d. Neuro check q.4 hours On telemetry to evaluate for any arrhythmias Will discharge with event monitor Neuro recommended Droxidopa however not available on formulary, awaiting further adjustment per neurology PT OT evaluation Imaging studies as below: CT head shows no acute intracranial lesions. Stable chronic ischemic changes particularly in the left frontal region. MRI:1. No evidence of acute ischemia. No intracranial bleed. Extensive chronic ischemic changes on the FLAIR sequence noted. 2. No intracranial space-occupying lesions, ventriculomegaly or midline shift. Carotid doppler:1. No evidence of hemodynamically significant atherosclerotic obstruction of common and internal carotid arteries in the neck. 2. Antegrade flow noted in the vertebral arteries on both sides Cervical Spine CT:1. No acute abnormalities of C-spine. Degenerative disc disease and facet arthropathy in the lower cervical spine ECHO: 1. Complete two-dimensional, color flow and Doppler transthoracic echocardiogram is performed. 2. Left ventricular chamber dimension is normal. 3. Left ventricular systolic function is normal, estimated at 65-70. 4. The left ventricular diastolic function is grade I diastolic dysfunction. 5. E/e' 12 is mildly elevated (2) Falls: Code(s): R29.6 - Repeated falls Status: Acute Assessment and Plan: Same as above (3) Chronic kidney disease, stage III (moderate): Qualifiers: Chronic kidney disease stage 3 subtype: stage 3b (GFR 30-44) Qualified Code(s): N18.32 - Chronic kidney disease, stage 3b Code(s): N18.30 - Chronic kidney disease, stage 3 unspecified Status: Acute Assessment and Plan: Avoid nephrotoxic drugs Trend BUN and creatinine Follow-up as outpatient (4) Urinary incontinence: Qualifiers: Urinary Incontinence type: mixed stress and urge incontinence Qualified Code(s): N39.46 - Mixed incontinence Code(s): R32 - Unspecified urinary incontinence Status: Acute Assessment and Plan: Continue Mirabegron (5) Hypothyroidism: Qualifiers: Hypothyroidism type: unspecified Qualified Code(s): E03.9 - Hypothyroidism, unspecified Code(s): E03.9 - Hypothyroidism, unspecified Status: Acute Assessment and Plan: Increased levothyroxine from 175-187.5 Repeat TSH in 4-6 weeks (6) Type 2 diabetes mellitus: Qualifiers: Diabetes mellitus continuous churn buttermaker insulin use: without continuous churn buttermaker use Diabetes mellitus complication status: with hyperglycemia Qualified Code(s): E11.65 - Type 2 diabetes mellitus with hyperglycemia Code(s): E11.9 - Type 2 diabetes mellitus without complications Status: Acute Assessment and Plan: Low-dose sliding scale Titrate as needed (7) Orthostatic hypotension: Code(s): I95.1 - Orthostatic hypotension Status: Acute Assessment and Plan: Maintain adequate hydration EVONNE hose Started on midodrine 2.5 mg p.o. t.i.d. increased to 5 mg p.o. t.i.d. and pyridostigmine 30 mg p.o. t.i.d. to 60 mg p.o. b.i.d. Caution when transitioning from sitting or lying to standing Can use abdominal binder if still having symptoms with the above interventions Advised to participate in exercise, particular balance, strengthening, and gait training Adaptation or modification of living environment to prevent fall Gradually change position, especially getting out of bed slowly by sitting first and and arising slowly Stop hydrochlorothiazide. Continue to monitor orthostatic vitals Plan Disposition: Patient will benefit from SNF awaiting final neuro recs DS: Summary Hospital Course Reason for hospitalization: Syncopal Hospital Course: 74 years old female was admitted for syncopal episode. Workup in the hospital was negative. Neurology was consulted. Patient was found to have orthostatic hypotension. Patient was started on midodrine. Today patient is feeling better will discharge home stable condition follow-up scheduled [facility] care and Neurology outpatient Status at Discharge Cognitive/behavioral status at discharge: Stable Time Spent with Patient Time attestation: Total time spent providing and/or coordinating discharge services: 30 minutes Exam Narrative: GENERAL: Chronically ill-looking, and in no acute distress. HEAD: Normocephalic, small laceration of the left eyebrow with suture in place EYES: PERRLA and EOMI. ENT: Nares clear, no rhinorrhea or epistaxis. Mucous membranes moist. NECK: Supple. CHEST: Clear to auscultation. No respiratory distress. HEART: Regular rate and rhythm. No murmur heard. Normal peripheral pulses. ABDOMEN: Soft, nontender, nondistended, normal active bowel sounds. EXTREMITIES: Normal range of motion. No edema. SKIN: Warm, dry, no rash. NEURO: No focal deficits. Answering appropriately, followed commands Alert and awake. Moving all extremities. PSYCH: Flat affect DS: Data Data Completed and Pending Labs on day of discharge: Labs from last 24 hours 06/18/25 06/18/25 06/18/25 12:00 07:46 04:10 WBC 9.0 RBC 4.01 L Hgb 12.5 Hct 37.9 MCV 94.5 MCH 31.2 MCHC 33.0 RDW 14.3 Plt Count 235 MPV 11.9 H Immature Gran % (Auto) 0.3 Neut % (Auto) 54.0 Lymph % (Auto) 35.1 [place] % (Auto) 7.1 Eos % (Auto) 2.8 Baso % (Auto) 0.7 Lymph # (Auto) 3.15 [place] # (Auto) 0.6 Eos # (Auto) 0.3 Baso # (Auto) 0.1 Abs Immat Gran (auto) 0.03 Absolute Neuts (auto) 4.9 Absolute Nucleated RBC 0.000 Nucleated RBC % 0.0 Sodium 136 L Potassium 3.6 Chloride 105 Carbon Dioxide 26 Anion Gap 5 BUN 35 H Creatinine 1.54 H Estim Creat Clear Calc 25 Estimated GFR 33 L Glucose 102 POC Capillary Glucose 132 H 118 H Calcium 9.9 Magnesium 2.0 Total Bilirubin 0.5 AST 24 ALT 32 Alkaline Phosphatase 72 Total Protein 7.2 Albumin 3.9 06/17/25 06/17/25 06/17/25 21:48 20:29 16:32 WBC RBC Hgb Hct MCV MCH MCHC RDW Plt Count MPV Immature Gran % (Auto) Neut % (Auto) Lymph % (Auto) [place] % (Auto) Eos % (Auto) Baso % (Auto) Lymph # (Auto) [place] # (Auto) Eos # (Auto) Baso # (Auto) Abs Immat Gran (auto) Absolute Neuts (auto) Absolute Nucleated RBC Nucleated RBC % Sodium Potassium Chloride Carbon Dioxide Anion Gap BUN Creatinine Estim Creat Clear Calc Estimated GFR Glucose POC Capillary Glucose 159 H 213 H 141 H Calcium Magnesium Total Bilirubin AST ALT Alkaline Phosphatase Total Protein Albumin Discharge Plan Discharge Attending physician on discharge: Destin Blanc Consulting providers: Bill Jaime; Eri Barrera Discharging Clinician: Destin Blanc Patient Disposition: Home with Home Health Service Activity: as tolerated Diet: as tolerated Discharge Instructions: Per Care Coordination Patient has been accepted to have [facility] for RN, PT, OT. [phone]. [facility] staff will call to arrange a time to see you in your house early next week. Patient Instructions: Antibiotic Form Patient Language: Mohawk Stand Alone Forms: General Discharge Information Follow-up/Referrals: Bill Jaime MD [Physician, Neurology] Shahriar Daigle MD [Primary Care Provider, Family Practice] Discharge Medications: New midodrine 2.5 mg Tablet 5 mg PO TID Qty: 90 0RF pyridostigmine bromide 60 mg Tablet 60 mg PO TID Qty: 90 0RF losartan 25 mg tablet 25 mg PO BID Qty: 60 2RF Continued cholecalciferol (vitamin D3) 125 mcg (5,000 unit) capsule 125 mcg PO DAILY Qty: 90 3RF mirabegron [Myrbetriq] 25 mg tablet extended release 24 hr 25 mg PO DAILY Qty: 90 1RF levothyroxine [Synthroid] 175 mcg tablet 175 mcg PO DAILY Qty: 90 0RF Rx Instructions: Take daily at 7 am in the morning. Must take medication by itself with water Do NOT take with other medications. gabapentin 300 mg capsule 300 mg PO QHS Qty: 90 1RF Centrum Silver Women 8 mg iron-400 mcg-50 mcg tablet 1 tablet PO DAILY Qty: 90 0RF Discontinued losartan-hydrochlorothiazide 50-12.5 mg tablet 1 tablet PO DAILY Qty: 90 1RF Date of admission: 06/13/25 10:51 Primary Care Provider: Shahriar Daigle Admitting Provider: Nohemi Lerner Attending physician on admission: Nohemi Lerner Condition: Stable
== END 2025-06-18 16:25 | disposition home health service (06) | DRG 312 ==
LOC: ANHED 23:54 → ANH2MED 06-10 00:35
PROVIDERS: Emergency Medicine; General Practice; Internal Medicine; Nurse Practitioner; Admitting Provider Student in an Organized Health Care Education/Training Program; Emergency Provider Emergency Medicine; PCP Family Medicine; Visit Provider Internal Medicine
DX: I95.1 Orthostatic hypotension (principal); E43 Unspecified severe protein-calorie malnutrition; Z68.1 Body mass index [BMI] 19.9 or less, adult; E03.9 Hypothyroidism, unspecified; E11.22 Type 2 diabetes mellitus with diabetic chronic kidney disease; I12.9 Hypertensive chronic kidney disease with stage 1 through stage 4 chronic kidney disease, or unspecified chronic kidney disease; N18.32 Chronic kidney disease, stage 3b; R32 Unspecified urinary incontinence; G31.84 Mild cognitive impairment of uncertain or unknown etiology; E11.42 Type 2 diabetes mellitus with diabetic polyneuropathy; Z91.81 History of falling; Z85.3 Personal history of malignant neoplasm of breast; Z87.891 Personal history of nicotine dependence
CPT/HCPCS: 36415; 70450; 70551; 71046; 72125; 80048; 80053; 80307; 81003; 82948; 83735; 84439; 84443; 84480; 84484; 85025; 85027; 93005; 93306; 93880; 95816; 96361; 96374; 97110; 97161; 97166; 97530; 97535; 99285; A9270; G0378; J1815; J2003; J2405; J7030